=== PATIENT | female | born 1935 | race Caucasian/White ===

== ENCOUNTER 2023-10-31 12:00 | Observation (INO) | payer MEDICARE ==
--- NOTE | 2023-10-31 13:32 | ERPHSYRPT ---
- History of Present Illness Time Seen by Provider: 10/31/23 13:27 Source: patient Exam Limitations: no limitations Physician History: 88-year-old female with history of hypertension, hyperlipidemia, diabetes mellitus, metastatic cancer with multiple radiations, recently completed the fifth round of radiation, recurrent UTI on prophylactic medications, presented in the ER with complains of feeling dizzy lightheaded, weak all over since morning. Patient also took a ground-level fall hitting her head and hip almost a week ago. She is able to walk but complaining of pain in the left hip which is progressively getting worse since the fall. Denies any focal numbness tingling or weakness. No chest pain palpitations or shortness of breath. Daughter reports patient having similar symptoms with UTI and dehydration. No fever or chills reported. Not a good historian and history is limited. Allergies/Adverse Reactions: niacin Allergy (Intermediate, Verified 10/31/23 20:19) Rash Home Medications: Aspirin 81 gm Chew [Baby Aspirin 81 mg Chew] 81 mg PO DAILY 01/26/23 [History] Lisinopril 20 mg [Zestril 20 MG] 20 mg PO DAILY 01/26/23 [History] Metformin HCl 500 mg [Glucophage 500 MG] 500 mg PO BIDWM 01/26/23 [History] Escitalopram Oxalate [Lexapro] 10 mg PO DAILY 03/05/23 [History] Simvastatin 20Mg [Zocor 20Mg] 20 mg PO HS 09/22/23 [History] Cephalexin Mh 500 mg [Keflex 500 mg] 250 mg PO DAILY 10/31/23 [History] Hx Tetanus, Diphtheria Vaccination/Date Given: Yes Hx Influenza Vaccination/Date Given: Yes Hx Pneumococcal Vaccination/Date Given: Yes Travel Risk - Emerging Infectious Disease Are you exhibiting symptoms associated with any current EIDs: No - Review of Systems Constitutional: Fatigue, Weakness Eyes: No Symptoms Ears, Nose, & Throat: No Symptoms Respiratory: No Symptoms Cardiac: No Symptoms Abdominal/Gastrointestinal: No Symptoms Genitourinary Symptoms: No Symptoms Musculoskeletal: Arthralgias, Fall, Joint Pain Skin: No Symptoms Neurological: Dizziness Endocrine: No Symptoms Hematologic/Lymphatic: No Symptoms - Past Medical History Pertinent Past Medical History: Yes Neurological History: No Pertinent History ENT History: No Pertinent History Cardiac History: High Cholesterol, Hypertension, Other Respiratory History: Lung Cancer Endocrine Medical History: Diabetes Type II Musculoskeletal History: No Pertinent History GI Medical History: No Pertinent History History: No Pertinent History Psycho-Social History: Anxiety Female Reproductive Disorders: No Pertinent History Other Medical History: heart murmur- Dr Verma, 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 - Past Surgical History Past Surgical History: Yes Neuro Surgical History: No Pertinent History Cardiac: No Pertinent History Respiratory: No Pertinent History Gastrointestinal: No Pertinent History Genitourinary: No Pertinent History Musculoskeletal: No Pertinent History Female Surgical History: Hysterectomy - Social History Smoking Status: Never smoker Exposure to second hand smoke: No Drug Use: none Patient Lives Alone: No - Nursing Vital Signs Nursing Vital Signs: Initial Vital Signs Temperature 96.8 F 10/31/23 13:33 Pulse Rate 76 10/31/23 13:33 Respiratory Rate 20 10/31/23 13:33 Blood Pressure 202/109 10/31/23 13:33 O2 Sat by Pulse Oximetry 97 10/31/23 13:33 Pain Scale Pain Intensity 0 - Epi Coma Score Best Eye Response (Epi): (4) open spontaneously Best Verbal Response (Vernalis): (5) oriented Best Motor Response (Vernalis): (6) obeys commands Vernalis Total: 15 - Physical Exam General Appearance: no apparent distress, alert Head Injury: no evidence of injury Eye Exam: PERRL/EOMI, eyes nml inspection ENT Exam: airway nml, No evidence of ENT injury, No dental injury Neck Exam: supple, trachea midline, full range of motion, normal alignment Respiratory/Chest Exam: normal breath sounds, No chest tenderness, No respiratory distress Cardiovascular Exam: normal heart sounds, regular rate/rhythm Gastrointestinal Exam: soft, normal bowel sounds, No tenderness Back Exam: normal inspection Extremity Exam: normal inspection, normal range of motion Neurologic Exam: alert, oriented x 3, cooperative, systems lead II-XII nml as tested, normal mood/affect, nml cerebellar function, sensation nml, No motor deficits Skin Exam: normal color SpO2 Interpretation: normal SpO2: 96 O2 Delivery: Room Air - Course EKG Interpreted by Me: RATE (79), Sinus Rhythm, NORMAL AXIS, Right Bundle Branch Block, Non-specific ST Changes, Other (Anterolateral T wave inversions) Ordered Tests: Medication Summary Discontinued Medications Generic Name Dose Route Start Last Admin Trade Name Freq PRN Reason Stop Dose Admin Acetaminophen 650 mg 10/31/23 17:35 10/31/23 17:38 Acetaminophen 325 Mg Tablet PO 10/31/23 17:36 650 mg STAT STA Administration Acetaminophen Confirm 10/31/23 17:37 Acetaminophen 325 Mg Tablet Administered 10/31/23 17:38 Dose 650 mg .ROUTE .STK-MED ONE Acetaminophen 650 mg 10/31/23 21:14 11/02/23 10:11 Acetaminophen 325 Mg Tablet PO 11/30/23 21:13 650 mg Q6H PRN PRN Administration PAIN AND/OR FEVER Amiloride HCl 5 mg 11/01/23 10:00 11/03/23 10:16 Amiloride Hcl 5 Mg Tablet PO 12/01/23 09:59 5 mg DAILY MARIA G Administration Amlodipine Besylate 5 mg 11/02/23 10:00 Amlodipine Besylate 5 Mg Tablet PO 12/02/23 09:59 QAM MARIA G Amlodipine Besylate 5 mg 11/02/23 10:00 11/03/23 10:16 Amlodipine Besylate 5 Mg Tablet PO 12/02/23 09:59 5 mg QAM MARIA G Administration Aspirin 81 mg 11/01/23 10:00 11/03/23 10:14 Aspirin 81 Mg Tablet.Ec PO 12/01/23 09:59 81 mg DAILY MARIA G Administration Cephalexin HCl 250 mg 11/01/23 10:00 Cephalexin Mh 250 Mg Capsule PO 12/01/23 09:59 DAILY MARIA G Cephalexin HCl 250 mg 11/02/23 10:00 11/03/23 10:16 Cephalexin Mh 250 Mg Capsule PO 12/02/23 09:59 250 mg DAILY MARIA G Administration Clonidine 0.1 mg 11/03/23 11:29 11/03/23 12:00 Clonidine Hcl 0.1 Mg Tablet PO 11/03/23 11:30 0.1 mg STAT ONE Administration Diphenhydramine HCl 25 mg 11/01/23 22:10 11/01/23 22:12 Diphenhydramine Hcl 25 Mg Capsule PO 12/01/23 22:09 25 mg HS PRN PRN Administration INSOMNIA Enoxaparin Sodium 40 mg 11/01/23 10:00 11/03/23 10:16 Enoxaparin Sodium 40 Mg/0.4 Ml Syringe SQ 12/01/23 09:59 40 mg DAILY MARIA G Administration Escitalopram Oxalate 10 mg 10/31/23 22:00 11/02/23 21:39 Escitalopram Oxalate 10 Mg Tablet PO 11/30/23 21:59 10 mg HS MARIA G Administration Hydralazine HCl 10 mg 11/01/23 08:12 11/02/23 21:39 Hydralazine Hcl 20 Mg/Ml Vial IV 12/01/23 08:11 10 mg Q4H PRN PRN Administration HYPERTENSION Hydralazine HCl 5 mg 11/01/23 20:00 11/01/23 20:03 Hydralazine Hcl 20 Mg/Ml Vial IV 11/01/23 20:01 5 mg NOW ONE Administration Hydrochlorothiazide 50 mg 11/01/23 10:00 11/01/23 10:22 Hydrochlorothiazide 25 Mg Tablet PO 12/01/23 09:59 50 mg DAILY MARIA G Administration Sodium Chloride 1,000 mls @ 100 mls/hr 10/31/23 13:30 10/31/23 14:08 Sodium Chloride 0.9% 1000 Ml IV 11/30/23 13:29 100 mls/hr .Q10H MARIA G Administration Ceftriaxone Sodium 2 gm in 100 mls @ 200 mls/hr 10/31/23 18:07 10/31/23 19:21 Rocephin 2 Gm/100 Ml Nacl IV 10/31/23 18:36 Infused STAT ONE Infusion Ceftriaxone Sodium Confirm 10/31/23 18:11 Rocephin 2 Gm/100 Ml Nacl Administered 10/31/23 18:12 Dose 2 gm in 100 mls @ ud IV .STK-MED ONE Sodium Chloride Confirm 10/31/23 14:05 Sodium Chloride 0.9% 1000 Ml Administered 10/31/23 14:06 Dose 1,000 mls @ ud .ROUTE .STK-MED ONE Sodium Chloride 1,000 mls @ 75 mls/hr 10/31/23 21:15 11/02/23 20:47 Sodium Chloride 0.9% 1000 Ml IV 11/30/23 21:14 Not Given .[id number] MARIA G Potassium Chloride 100 mls @ 50 mls/hr 11/01/23 07:45 11/01/23 16:30 Potassium Chloride 20 Meq In Water 100ml IV 11/01/23 15:44 50 mls/hr Q2H MARIA G Administration Ceftriaxone Sodium 1 gm in 100 mls @ 200 mls/hr 11/01/23 22:00 Rocephin 1 Gm / 100 Ml Nacl IV 12/01/23 21:59 HS MARIA G Magnesium Sulfate/Water 2 gm in 50 mls @ 100 mls/hr 11/01/23 11:33 11/01/23 13:08 Magnesium Sulf 2 G/50 Ml Bag IV 11/01/23 12:02 100 mls/hr ONCE ONE Administration Magnesium Sulfate/Water 2 gm in 50 mls @ 100 mls/hr 11/02/23 07:34 11/02/23 08:03 Magnesium Sulf 2 G/50 Ml Bag IV 11/02/23 08:03 100 mls/hr ONCE ONE Administration Insulin Human Lispro 0 unit 10/31/23 21:14 Insulin Lispro 1 Unit SQ 11/30/23 21:13 UD PRN HYPERGLYCEMIA Labetalol HCl 10 mg 10/31/23 18:02 10/31/23 18:19 Labetalol Hcl 20 Mg/4 Ml Disp.Syringe IV 10/31/23 18:03 10 mg STAT ONE Administration Labetalol HCl Confirm 10/31/23 18:11 Labetalol Hcl 20 Mg/4 Ml Disp.Syringe Administered 10/31/23 18:12 Dose 20 mg IV .STK-MED ONE Lisinopril 20 mg 11/01/23 10:00 11/01/23 10:22 Lisinopril 20 Mg Tablet PO 12/01/23 09:59 20 mg DAILY MARIA G Administration Lisinopril 20 mg 11/02/23 20:00 Lisinopril 20 Mg Tablet PO 11/02/23 20:01 NOW ONE Lisinopril 40 mg 11/02/23 10:00 11/03/23 10:14 Lisinopril 20 Mg Tablet PO 12/02/23 09:59 40 mg DAILY MARIA G Administration Lisinopril 20 mg 11/01/23 20:00 11/01/23 20:03 Lisinopril 20 Mg Tablet PO 11/01/23 20:01 20 mg NOW ONE Administration Melatonin 3 mg 11/02/23 17:41 11/02/23 18:20 Melatonin 3 Mg Tablet PO 12/02/23 17:40 3 mg HS PRN PRN Administration INSOMNIA Metformin HCl 500 mg 11/01/23 08:00 11/03/23 08:15 Metformin Hcl 500 Mg Tablet PO 12/01/23 07:59 500 mg BIDWM MARIA G Administration Potassium Chloride 20 meq 11/02/23 07:45 11/02/23 13:23 Potassium Chloride Tab 10 Meq Tab PO 11/02/23 13:46 20 meq Q2H MARIA G Administration Simvastatin 20 mg 10/31/23 22:00 11/02/23 21:39 Simvastatin 20 Mg Tablet PO 11/30/23 21:59 20 mg HS MARIA G Administration Sodium Chloride 1,000 mg 11/02/23 14:43 11/02/23 14:49 Sodium Chloride 1,000 Mg Tablet PO 11/02/23 14:44 1,000 mg STAT ONE Administration Lab/Rad Data: Laboratory Result Diagrams 10/31/23 13:35 10/31/23 13:35 Laboratory Results 10/31/23 10/31/23 10/31/23 Range/Units 16:54 13:35 13:35 WBC (4.0-10.5) x10^3/uL RBC (4.1-5.4) x10^6/uL Hgb (12.0-16.0) g/dL Hct (35-47) % MCV (78-100) fL MCH (26-32) pg MCHC (32-36) g/dL RDW (11.5-14.0) % Plt Count (150-450) x10^3/uL MPV (7.5-11.0) fL Gran % (36.0-66.0) % Immature Gran % (Auto) (0.00-0.4) % Nucleat RBC Rel Count (0.00-0.1) % Eos # (Auto) (0-0.5) x10^3/uL Immature Gran # (Auto) (0.00-0.03) x10^3u/L Absolute Lymphs (auto) (1.0-4.6) x10^3/uL Absolute Monos (auto) (0.0-1.3) x10^3/uL Absolute Nucleated RBC (0.00-0.01) x10^3u/L Lymphocytes % (24.0-44.0) % Monocytes % (0.0-12.0) % Eosinophils % (0.00-5.0) % Basophils % (0.0-0.4) % Absolute Granulocytes (1.4-6.9) x10^3/uL Basophils # (0-0.4) x10^3/uL Sodium 133 L (135-145) mmol/L Potassium 3.5 (3.5-5.1) mmol/L Chloride 94 L (98-107) mmol/L Carbon Dioxide 32 H (22-30) mmol/L Anion Gap 10.3 (5-15) MEQ/L BUN 15 (7-17) mg/dL Creatinine 0.60 (0.52-1.04) mg/dL Estimated GFR 86.8 ML/MIN Glucose 112 H (74-106) mg/dL Lactic Acid (0.4-2.0) Calcium 9.4 (8.4-10.2) mg/dL Total Bilirubin 0.80 (0.2-1.3) mg/dL AST 33 (14-36) U/L ALT 13 (0-35) U/L Alkaline Phosphatase 96 (38-126) U/L Troponin I < 0.012 < 0.012 (0.000-0.033) ng/mL Serum Total Protein 7.7 (6.3-8.2) g/dL Albumin 4.3 (3.5-5.0) g/dL Lipase 48 (23-300) U/L Urine Color (Yellow) Urine Appearance (Clear) Urine pH (4.6-8.0) Ur Specific Jasper (1.005-1.030) Urine Protein (Negative) Urine Glucose (UA) (Negative) mg/dL Urine Ketones (Negative) Urine Blood (Negative) Urine Nitrite (Negative) Urine Bilirubin (Negative) Urine Urobilinogen (0.2) mg/dL Ur Leukocyte Esterase (Negative) U Hyaline Cast (Auto) (0-2) /LPF Urine Microscopic RBC (0-5) /HPF Urine Microscopic WBC (0-5) /HPF Ur Epithelial Cells (None Seen) /HPF Amorphous Crystals (None Seen) /HPF Urine Bacteria (None Seen) /HPF Urine Culture Reflexed (NO) 10/31/23 10/31/23 10/31/23 Range/Units 13:35 13:28 13:20 WBC 6.9 (4.0-10.5) x10^3/uL RBC 4.22 (4.1-5.4) x10^6/uL Hgb 13.0 (12.0-16.0) g/dL Hct 38.1 (35-47) % MCV 90.3 (78-100) fL MCH 30.8 (26-32) pg MCHC 34.1 (32-36) g/dL RDW 12.4 (11.5-14.0) % Plt Count 279 (150-450) x10^3/uL MPV 8.5 (7.5-11.0) fL Gran % 80.9 H (36.0-66.0) % Immature Gran % (Auto) 0.6 H (0.00-0.4) % Nucleat RBC Rel Count 0.0 (0.00-0.1) % Eos # (Auto) 0.02 (0-0.5) x10^3/uL Immature Gran # (Auto) 0.04 H (0.00-0.03) x10^3u/L Absolute Lymphs (auto) 0.65 L (1.0-4.6) x10^3/uL Absolute Monos (auto) 0.58 (0.0-1.3) x10^3/uL Absolute Nucleated RBC 0.00 (0.00-0.01) x10^3u/L Lymphocytes % 9.4 L (24.0-44.0) % Monocytes % 8.4 (0.0-12.0) % Eosinophils % 0.3 (0.00-5.0) % Basophils % 0.4 (0.0-0.4) % Absolute Granulocytes 5.60 (1.4-6.9) x10^3/uL Basophils # 0.03 (0-0.4) x10^3/uL Sodium (135-145) mmol/L Potassium (3.5-5.1) mmol/L Chloride (98-107) mmol/L Carbon Dioxide (22-30) mmol/L Anion Gap (5-15) MEQ/L BUN (7-17) mg/dL Creatinine (0.52-1.04) mg/dL Estimated GFR ML/MIN Glucose (74-106) mg/dL Lactic Acid 1.3 (0.4-2.0) Calcium (8.4-10.2) mg/dL Total Bilirubin (0.2-1.3) mg/dL AST (14-36) U/L ALT (0-35) U/L Alkaline Phosphatase (38-126) U/L Troponin I (0.000-0.033) ng/mL Serum Total Protein (6.3-8.2) g/dL Albumin (3.5-5.0) g/dL Lipase (23-300) U/L Urine Color Yellow (Yellow) Urine Appearance Cloudy A (Clear) Urine pH 8.0 (4.6-8.0) Ur Specific Jasper 1.015 (1.005-1.030) Urine Protein Trace A (Negative) Urine Glucose (UA) Negative (Negative) mg/dL Urine Ketones 15 A (Negative) Urine Blood Negative (Negative) Urine Nitrite Negative (Negative) Urine Bilirubin Negative (Negative) Urine Urobilinogen 1.0 A (0.2) mg/dL Ur Leukocyte Esterase Negative (Negative) U Hyaline Cast (Auto) NONE SEEN (0-2) /LPF Urine Microscopic RBC 0-2 (0-5) /HPF Urine Microscopic WBC 0-2 (0-5) /HPF Ur Epithelial Cells None Seen (None Seen) /HPF Amorphous Crystals Few A (None Seen) /HPF Urine Bacteria Moderate A (None Seen) /HPF Urine Culture Reflexed YES (NO) - Progress Progress: improved Progress Note: 10/31/23 18:47 Given fluids, CT head cervical spine and pelvis negative for any acute trauma related findings. Chest x-ray negative for any acute findings reviewed by me, official report is pending. Has normal white count, fairly unremarkable chemistries, does have some element of UTI and given dose of Rocephin. Patient blood pressure in the 200s, given labetalol. Patient is too weak to ambulate on her own. Discussed with Dr. Cuellar, reviewed history, workup and agreed with observation admission. Discussed with DrPadmini: Other (Dr. Cuellar) Will see patient in: hospital (observation) Counseled pt/family regarding: lab results, diagnosis, need for follow-up, rad results Medical Desision Making - Discussion of managment Care discussed with:: hospitalist Reviewed:: Test results Agreed on:: Treatment plan, place in obs Will see patient: in hospital - Diagnostic Testing Diagnostic test were ordered, analyzed, and reviewed by me: Yes Radiological Interpretation: Interpreted by me, Reviewed by me, Teleradiologist Report - Risk of complications The pt has a high risk of morbidity or mortality based on: Decision regarding hospitilization or escalation of hosp level of care - Departure Departure Disposition: Observation Clinical Impression: Uncontrolled hypertension, Dizziness, Generalized weakness Condition: Stable Critical Care Time: No
[2023-10-31 13:39] LABS: BASOPHIL % 0.4 % (0.0-0.4); Basophil (Absolute #) 0.03 x10^3/uL (0-0.4); Eosinophil % 0.3 % (0.00-5.0); Eosinophil (Absolute #) 0.02 x10^3/uL (0-0.5); Hematocrit 38.1 % (35-47); IMMATURE GRAN # 0.04 x10^3u/L (0.00-0.03); IMMATURE GRAN % 0.6 % (0.00-0.4); Lymphocyte (Absolute #) 0.65 x10^3/uL (1.0-4.6); Lymphocytes % 9.4 % (24.0-44.0); Mean Cell Volume 90.3 fL (78-100); Mean Corpuscular Hemoglobin 30.8 pg (26-32); Mean Corpuscular Hgb Concent. 34.1 g/dL (32-36); Mean Platelet Volume 8.5 fL (7.5-11.0); Monocyte (Absolute #) 0.58 x10^3/uL (0.0-1.3); Monocytes % 8.4 % (0.0-12.0); Neutrophil % 80.9 % (36.0-66.0); Platelet Count 279 x10^3/uL (150-450); Red Blood Count 4.22 x10^6/uL (4.1-5.4); Red Cell Distribution Width 12.4 % (11.5-14.0); White Blood Count 6.9 x10^3/uL (4.0-10.5)
[2023-10-31 13:49] LABS: Appearance Cloudy (Clear); Bacteria Moderate /HPF (None Seen); Bilirubin Negative (Negative); Blood Negative (Negative); Epithelial Cells None Seen /HPF (None Seen); Glucose, Urine Negative (Negative); Hyaline Casts NONE SEEN /LPF (0-2); Ketones 15 (Negative); Leukocyte Esterase Negative (Negative); Nitrite Negative (Negative); Protein,Urine Dip Trace (Negative); RBC 0-2 /HPF (0-5); Specific Gravity 1.015 (1.005-1.030); WBC 0-2 /HPF (0-5)
[2023-10-31 13:50] LABS: ADD URINE CULTURE? YES (NO); Amourphous Crystal Few /HPF (None Seen)
[2023-10-31 13:50] LABS: ALBUMIN 4.3 g/dL (3.5-5.0); ANION GAP 10.3 MEQ/L (5-15); BILIRUBIN,TOTAL 0.8 mg/dL (0.2-1.3); Calcium 9.4 mg/dL (8.4-10.2); Creatinine 1 0.6 mg/dL (0.52-1.04); EST GLOMERULAR FILTRATION RATE 86.8 ML/MIN; Potassium 3.5 mmol/L (3.5-5.1); Total Protein 7.7 g/dL (6.3-8.2)
[2023-10-31] MEDS ORDERED: Sodium Chloride 0.9% 1000 ML 1,000 ML ONE (14:05)
[2023-10-31] MEDS: Sodium Chloride 0.9% 1000 ML 1,000 ML IV SCH (14:08)
--- NOTE | 2023-10-31 16:16 | XRAY ---
CLINICAL HISTORY: fall/dizziness COMPARISON: None. TECHNIQUE: Axial non-contrast CT scan of the brain was performed from the skull base to the high parietal region with multiplanar reconstructions. One of the following dose reduction techniques were utilized for this exam: Automated exposure control, adjustment of the mA and/or kV according to patient size, use of iterative reconstruction. FINDINGS: There are hypdense areas noted in the periventricular and subcortical white matter bilaterally, suggestive of microvascular ischemic changes. 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 The ventricular system, cortical sulci and basal cisterns are prominent consistent with senile changes. The visualized brain parenchyma shows a normal appearance. Shin-white matter differentiation is maintained. No midline shifts or deformity. No intracerebral or extra axial hematoma. Normal size and configuration of the cerebral ventricles. Normal CT appearance of the posterior fossa structures namely the cerebellar hemispheres, brainstem and cerebellar peduncles. The osseous structures in the skull base are unremarkable. No definite calvarium fractures. The scanned paranasal sinuses are clear. Small edward bullosae in both middle turbinates. There is a soft tissue lesion seen in the anterior nasal cavity relatively large on right side. Needs clinical correlation IMPRESSION: 1. The above-mentioned findings are suggestive of mild microvascular ischemic changes and senile changes. 2. The rest of non-enhanced CT study for the brain is unremarkable. 3. Early changes of acute stroke may sometimes not be detected on a CT scan.If clinically needed, MRI with diffusion-weighted imaging is recommended for further evaluation. Electronically Signed by: Raine Busch MD. (10/31/2023 16:10:43 EDT)
--- NOTE | 2023-10-31 16:23 | XRAY ---
CLINICAL HISTORY: fall/dizziness COMPARISON: None. TECHNIQUE: Thin axial CT of the cervical spine was performed with sagittal and coronal reconstructions without contrast administration. One of the following dose reduction techniques was utilized for this exam: Automated exposure control, adjustment of the mA and/or kV according to patient size, and use of iterative reconstruction. FINDINGS: Alignment and osseous structures: Preserved physiological cervical lordosis The vertebral bodies are normal in height. No lytic or sclerotic bone lesion. The craniovertebral measures are unremarkable. Degenerative changes of the cervical spines with osteophyte formations more at C5, C6,and C7 vertebrae Narrowing of disc spaces, more at C5-C6 & C6-C7. Adequate spinal canal. Subtle anterolisthesis of C3 over C4 noted. Facetal arthritic changes at multiple levels Atlantodental osteoarthritic changes noted No acute fractures are seen. No paravertebral soft tissue mass or collection. IMPRESSION: No acute osseous findings. No fractures or soft tissue swelling. Cervical spondylotic changes at multiple levels showing marginal osteophytosis and reduced intervertebral disc spaces at multiple levels, most pronounced at C5-C6 and C6-C7 levels. MRI may be recommended for further evaluation. Electronically Signed by: Raine Busch MD. (10/31/2023 16:19:36 EDT)
--- NOTE | 2023-10-31 16:44 | XRAY ---
CLINICAL HISTORY: fall/dizziness COMPARISON: None. TECHNIQUE: CT axial continuous cuts were taken through the pelvis with multiplanar reconstructions without contrast administration. One of the following dose reduction techniques was utilized for this exam: Automated exposure control, adjustment of the mA and/or kV according to patient size, and use of iterative reconstruction. FINDINGS: No definite acute fractures or dislocation. Osteopenia of the examined bones. Mild degenerative changes of the hip joints. Lower lumbar spondylotic changes with lower disc osteophyte complexes. Multiple colonic diverticula is seen without inflammation findings around it. Fat-containing right groin hernia is noted. Advanced vascular calcifications. IMPRESSION: 1. No definite acute fractures or dislocation. 2. Fat-containing right groin hernia. 3. The rest of the findings as described. Electronically Signed by: Raine Busch MD. (10/31/2023 16:39:15 EDT)
[2023-10-31] MEDS ORDERED: TYLENOL 325 MG ONE (17:37)
[2023-10-31] MEDS: TYLENOL 325 MG PO STA (17:38)
[2023-10-31] MEDS ORDERED: ROCEPHIN 2 GM/100 ML NACL 2 GM/100 ML IVPB IV ONE (18:11)
[2023-10-31] MEDS ORDERED: TRANDATE 20 MG/4 ML SYRINGE IV ONE (18:11)
[2023-10-31] MEDS: TRANDATE 20 MG/4 ML SYRINGE IV ONE (18:19)
[2023-10-31] MEDS: ROCEPHIN 2 GM/100 ML NACL 2 GM/100 ML IVPB IV ONE (18:25)
--- NOTE | 2023-10-31 20:00 | XRAY ---
Indication: Weakness and dizziness. Comparison: None Portable chest underinflated with right base subsegmental atelectasis/scarring and cardiomegaly obscuring left lung base. Visualized upper lungs clear. Bony thorax intact with osteopenia and moderate degenerative changes.
[2023-10-31] MEDS ORDERED: HUMALOG SQ PRN (21:14)
[2023-10-31] MEDS: ZOCOR 20MG PO SCH (21:23)
[2023-10-31] MEDS: Lexapro PO SCH (21:23)
--- NOTE | 2023-10-31 21:27 | PCM.HP ---
History of Present Illness - Chief Complaint Chief Complaint: Generalized weakness, fall Date: 10/31/23 History of Present Illness: 88-year-old woman with a history of metastatic small cell lung cancer, hypertension, and diabetes, who presents with dizziness, malaise, and multiple falls. Of note, patient has been treated for metastatic SCLC since last summer, and just completed 5 days of intense radiation therapy to a new metastasis on her liver, finishing as of Wednesday. Her daughter is with her today, and both patient and daughter note that whenever patient gets radiation treatments, she has severe malaise, and has difficulty getting enough fluid intake. She has been trying to drink more fluids, but has for the past week been feeling overall poorly. She had a fall 1 week ago, and has been so sore that she has been unable to stand and walk. At baseline, she walks independently without assistive device. She has no focal pain, but has felt generally sore. There was also concern that patient could be having a UTI; she has had a series of UTIs that also gave her similar symptoms, and was recently started on daily low-dose Keflex for antibiotic suppression. She has a mild headache, similar to when she has been dehydrated. He denies fevers or sick contacts. Denies cough, chest pain, abdominal pain, or nausea, although has been having poor appetite. Still has some dizziness when she sits up. In the ER, patient had CT of the head, C-spine, and pelvis, that were all negative for fracture. She is given one dose of Rocephin and half a liter of normal saline. - Review of Systems Constitutional: Fatigue, Lethargy, Malaise, Night Sweats, Weakness, No Fever, No Chills Eyes: No Vision Changes, No Double Vision Ears, Nose, & Throat: No Nose Congestion, No Nose Discharge, No Throat Pain, No Throat Swelling Respiratory: No Cough, No Short Of Breath, No Wheezing Cardiac: No Chest Pain, No Edema Abdominal/Gastrointestinal: No Abdominal Pain, No Nausea, No Vomiting, No Diarrhea Genitourinary Symptoms: No Dysuria, No Frequency, No Hematuria Skin: No Symptoms Neurological: Dizziness, Gait Changes, Headache, Lethargy, No Focal Weakness, No Paralysis, No Parasthesia, No Sensory Changes, No Speech Changes, No Vertigo All Other Systems: Reviewed and Negative Medications & Allergies Home Medications: Home Medication List Amiloride/Hydrochlorothiazide [Amiloride HCl-Hctz 5-50 mg Tab] 1 each PO DAILY 01/26/23 [History Confirmed 10/31/23] Aspirin 81 gm Chew [Baby Aspirin 81 mg Chew] 81 mg PO DAILY 01/26/23 [History Confirmed 10/31/23] Lisinopril 20 mg [Zestril 20 MG] 20 mg PO DAILY 01/26/23 [History Confirmed 10/31/23] Metformin HCl 500 mg [Glucophage 500 MG] 500 mg PO BIDWM 01/26/23 [History Confirmed 10/31/23] Escitalopram Oxalate [Lexapro] 10 mg PO DAILY 03/05/23 [History Confirmed 10/31/23] Simvastatin 20Mg [Zocor 20Mg] 20 mg PO HS 09/22/23 [History Confirmed 10/31/23] Cephalexin Mh 500 mg [Keflex 500 mg] 250 mg PO DAILY 10/31/23 [History Confirmed 10/31/23] Allergies/Adverse Reactions: Allergies Allergy/AdvReac Type Severity Reaction Status Date / Time niacin Allergy Intermediate Rash Verified 10/31/23 20:19 - Past Medical History Past Medical History: Yes Neurological History: No Pertinent History ENT History: No Pertinent History Cardiac History: High Cholesterol, Hypertension, Other Respiratory History: Lung Cancer (Small cell lung cancer, first diagnosed in the neck, status post fractionated XRT summary 2022. New liver metastasis noted spring 2023, status post 5 days XRT.) Endocrine Medical History: Diabetes Type II (Only on metformin at home) Musculoskelatal History: No Pertinent History GI Medical History: No Pertinent History History: No Pertinent History Pyscho-Social History: Anxiety Reproductive Disorders: No Pertinent History Comment: heart murmur- Dr Verma, 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 - Female History Are you now?: No - Past Surgical History Past Surgical History: Yes Neuro Surgical History: No Pertinent History Cardiac History: No Pertinent History Respiratory Surgery: No Pertinent History GI Surgical History: No Pertinent History Genitourinary Surgical Hx: No Pertinent History Musculskeletal Surgical Hx: No Pertinent History Female Surgical History: Hysterectomy Significant Family History: no pertinent family hx - Social History Smoking Status: Never smoker Exposure to second hand smoke: No Alcohol: None Drug Use: none - Social Determinants of Health Will the patient participate in the screening: Yes Do you worry about a steady place to live?: No Do you have any problems with any of the following?: No known problems In the past 12 months,have you had to go without utilities?: No Have you or anyone in your house had to go without enough: No Transportation Issues: No Has anyone in your support network made you feel unsafe?: No Does the patient want assistance with any of the above?: No - Physical Exam Vital Signs: Vital Signs - 24 hr Temp Pulse Resp BP BP Pulse Ox 10/31/23 20:22 97.7 F 86 18 187/88 99 10/31/23 19:27 90 18 93/55 98 10/31/23 19:00 90 11 L 174/87 10/31/23 18:58 89 16 161/91 10/31/23 18:51 96 10/31/23 18:30 86 12 162/100 97 10/31/23 18:00 83 23 189/111 189/111 96 10/31/23 13:33 96.8 F 76 20 202/109 97 GEN: Lying in bed in no acute distress NEURO: No focal deficits CV: Regular rate & rhythm, no murmurs, no edema PULM: Decreased breath sounds at the right base, but otherwise clear to auscultation bilaterally, on room air, with no work of breathing. ABD: Soft, non-distended, normoactive bowel sounds PSYCH: Easily awoken, alert during conversation, oriented x 3 Results - Labs Lab/Micro Results: Lab Results-Last 24 Hours 10/31/23 10/31/23 10/31/23 Range/Units 13:20 13:28 13:35 WBC 6.9 (4.0-10.5) x10^3/uL RBC 4.22 (4.1-5.4) x10^6/uL Hgb 13.0 (12.0-16.0) g/dL Hct 38.1 (35-47) % MCV 90.3 (78-100) fL MCH 30.8 (26-32) pg MCHC 34.1 (32-36) g/dL RDW 12.4 (11.5-14.0) % Plt Count 279 (150-450) x10^3/uL MPV 8.5 (7.5-11.0) fL Gran % 80.9 H (36.0-66.0) % Immature Gran % (Auto) 0.6 H (0.00-0.4) % Nucleat RBC Rel Count 0.0 (0.00-0.1) % Eos # (Auto) 0.02 (0-0.5) x10^3/uL Immature Gran # (Auto) 0.04 H (0.00-0.03) x10^3u/L Absolute Lymphs (auto) 0.65 L (1.0-4.6) x10^3/uL Absolute Monos (auto) 0.58 (0.0-1.3) x10^3/uL Absolute Nucleated RBC 0.00 (0.00-0.01) x10^3u/L Lymphocytes % 9.4 L (24.0-44.0) % Monocytes % 8.4 (0.0-12.0) % Eosinophils % 0.3 (0.00-5.0) % Basophils % 0.4 (0.0-0.4) % Absolute Granulocytes 5.60 (1.4-6.9) x10^3/uL Basophils # 0.03 (0-0.4) x10^3/uL Sodium (135-145) mmol/L Potassium (3.5-5.1) mmol/L Chloride (98-107) mmol/L Carbon Dioxide (22-30) mmol/L Anion Gap (5-15) MEQ/L BUN (7-17) mg/dL Creatinine (0.52-1.04) mg/dL Estimated GFR ML/MIN Glucose (74-106) mg/dL Lactic Acid 1.3 (0.4-2.0) Calcium (8.4-10.2) mg/dL Total Bilirubin (0.2-1.3) mg/dL AST (14-36) U/L ALT (0-35) U/L Alkaline Phosphatase (38-126) U/L Troponin I (0.000-0.033) ng/mL Serum Total Protein (6.3-8.2) g/dL Albumin (3.5-5.0) g/dL Lipase (23-300) U/L Urine Color Yellow (Yellow) Urine Appearance Cloudy A (Clear) Urine pH 8.0 (4.6-8.0) Ur Specific [place] 1.015 (1.005-1.030) Urine Protein Trace A (Negative) Urine Glucose (UA) Negative (Negative) mg/dL Urine Ketones 15 A (Negative) Urine Blood Negative (Negative) Urine Nitrite Negative (Negative) Urine Bilirubin Negative (Negative) Urine Urobilinogen 1.0 A (0.2) mg/dL Ur Leukocyte Esterase Negative (Negative) U Hyaline Cast (Auto) NONE SEEN (0-2) /LPF Urine Microscopic RBC 0-2 (0-5) /HPF Urine Microscopic WBC 0-2 (0-5) /HPF Ur Epithelial Cells None Seen (None Seen) /HPF Amorphous Crystals Few A (None Seen) /HPF Urine Bacteria Moderate A (None Seen) /HPF Urine Culture Reflexed YES (NO) 10/31/23 10/31/23 10/31/23 Range/Units 13:35 13:35 16:54 WBC (4.0-10.5) x10^3/uL RBC (4.1-5.4) x10^6/uL Hgb (12.0-16.0) g/dL Hct (35-47) % MCV (78-100) fL MCH (26-32) pg MCHC (32-36) g/dL RDW (11.5-14.0) % Plt Count (150-450) x10^3/uL MPV (7.5-11.0) fL Gran % (36.0-66.0) % Immature Gran % (Auto) (0.00-0.4) % Nucleat RBC Rel Count (0.00-0.1) % Eos # (Auto) (0-0.5) x10^3/uL Immature Gran # (Auto) (0.00-0.03) x10^3u/L Absolute Lymphs (auto) (1.0-4.6) x10^3/uL Absolute Monos (auto) (0.0-1.3) x10^3/uL Absolute Nucleated RBC (0.00-0.01) x10^3u/L Lymphocytes % (24.0-44.0) % Monocytes % (0.0-12.0) % Eosinophils % (0.00-5.0) % Basophils % (0.0-0.4) % Absolute Granulocytes (1.4-6.9) x10^3/uL Basophils # (0-0.4) x10^3/uL Sodium 133 L (135-145) mmol/L Potassium 3.5 (3.5-5.1) mmol/L Chloride 94 L (98-107) mmol/L Carbon Dioxide 32 H (22-30) mmol/L Anion Gap 10.3 (5-15) MEQ/L BUN 15 (7-17) mg/dL Creatinine 0.60 (0.52-1.04) mg/dL Estimated GFR 86.8 ML/MIN Glucose 112 H (74-106) mg/dL Lactic Acid (0.4-2.0) Calcium 9.4 (8.4-10.2) mg/dL Total Bilirubin 0.80 (0.2-1.3) mg/dL AST 33 (14-36) U/L ALT 13 (0-35) U/L Alkaline Phosphatase 96 (38-126) U/L Troponin I < 0.012 < 0.012 (0.000-0.033) ng/mL Serum Total Protein 7.7 (6.3-8.2) g/dL Albumin 4.3 (3.5-5.0) g/dL Lipase 48 (23-300) U/L Urine Color (Yellow) Urine Appearance (Clear) Urine pH (4.6-8.0) Ur Specific [place] (1.005-1.030) Urine Protein (Negative) Urine Glucose (UA) (Negative) mg/dL Urine Ketones (Negative) Urine Blood (Negative) Urine Nitrite (Negative) Urine Bilirubin (Negative) Urine Urobilinogen (0.2) mg/dL Ur Leukocyte Esterase (Negative) U Hyaline Cast (Auto) (0-2) /LPF Urine Microscopic RBC (0-5) /HPF Urine Microscopic WBC (0-5) /HPF Ur Epithelial Cells (None Seen) /HPF Amorphous Crystals (None Seen) /HPF Urine Bacteria (None Seen) /HPF Urine Culture Reflexed (NO) - Radiology Impressions Radiology Exams & Impressions: Radiology Procedures Category Date Time Status CERVICAL SPINE WO CONTRAST [CT] Stat Exams 10/31/23 13:28 Completed CHEST 1 VIEW (PORTABLE) Stat Exams 10/31/23 13:28 Completed HEAD WITHOUT CONTRAST [CT] Stat Exams 10/31/23 13:28 Completed PELVIS WITHOUT CONTRAST [CT] Stat Exams 10/31/23 13:[address] head, C-spine, and pelvis all negative for acute fracture Chest x-ray elevated right hemidiaphragm, unchanged from prior chest x-rays from last summer. Small platelike atelectasis at the right base. (Images reviewed personally.) Assessment/Plan (1) Dehydration Current Visit: No Status: Acute Assessment & Plan: 88-year-old woman with a history of metastatic SCLC, hypertension, and diabetes, here with symptoms of dehydration after getting another round of radiation therapy. ## Dehydration, dizziness with recurrent symptoms of poor oral intake, lightheadedness, when she gets her radiation treatments. Symptoms began just as she was completing her last 5-day course. While there was some concern in the ER for acute cystitis, patient does not have any pyuria. Presence of bacteria alone in the urine does not indicate infection. However, her large inflammatory response to the radiation treatment would give her the same systemic inflammatory response that would lead to her malaise. Discontinue further antibiotics Start NS at 75 mL/h Reevaluate in the morning with PT/OT to assess for mobility ## Recurrent UTI patient was recently started on suppressive Keflex. Today, while she has some asymptomatic bacteriuria, she has no pyuria to suggest actual cystitis. Can continue her home suppressive Keflex 250 mg daily ## Type 2 diabetes well-controlled at home. Continue home metformin Low-dose sliding scale insulin ## Hypertension elevated on arrival, but patient was unable to take her blood pressure medications. Resume home lisinopril, amiloride, hydrochlorothiazide. CODE STATUS: Full code Diet: Diabetic Prophylaxis: Lovenox Code(s): E86.0 - DEHYDRATION Telemedicine Encounter - Telemedicine Encounter Telemedicine Encounter: The entirety of this encounter was performed via Telemedicine"
[2023-11-01] MEDS: TYLENOL 325 MG PO PRN (01:40)
[2023-11-01 05:02] LABS: Hematocrit 33.4 % (35-47); Hemoglobin 11.5 g/dL (12.0-16.0); Mean Cell Volume 88.6 fL (78-100); Mean Corpuscular Hemoglobin 30.5 pg (26-32); Mean Corpuscular Hgb Concent. 34.4 g/dL (32-36); Mean Platelet Volume 8.9 fL (7.5-11.0); Platelet Count 306 x10^3/uL (150-450); Red Blood Count 3.77 x10^6/uL (4.1-5.4); Red Cell Distribution Width 12.5 % (11.5-14.0); White Blood Count 8.1 x10^3/uL (4.0-10.5)
[2023-11-01 05:32] LABS: ANION GAP 9.3 MEQ/L (5-15); Calcium 8.8 mg/dL (8.4-10.2); Creatinine 1 0.5 mg/dL (0.52-1.04); EST GLOMERULAR FILTRATION RATE 90.7 ML/MIN; Potassium 3.1 mmol/L (3.5-5.1)
[2023-11-01] MEDS: Sodium Chloride 0.9% 1000 ML 1,000 ML IV SCH (05:38)
[2023-11-01] MEDS: POTASSIUM CHLORIDE 20 mEq IN WATER 100ML 100 ML IV SCH (08:16)
[2023-11-01] MEDS: Glucophage 500 MG PO SCH (08:16)
[2023-11-01] MEDS ORDERED: AMILORIDE PO SCH (10:00)
[2023-11-01] MEDS ORDERED: KEFLEX 500 MG PO SCH (10:00)
[2023-11-01] MEDS ORDERED: KEFLEX 250 MG PO SCH (10:00)
[2023-11-01] MEDS ORDERED: [UNRECOGNIZED DRUG - OTHER] PO SCH (10:00)
[2023-11-01] MEDS ORDERED: HYDROCHLOROTHIAZIDE PO SCH (10:00)
[2023-11-01] MEDS ORDERED: BABY ASPIRIN 81 MG CHEW PO SCH (10:00)
[2023-11-01] MEDS: AMILORIDE HCL PO SCH (10:22)
[2023-11-01] MEDS: Zestril 20 MG PO SCH (10:22)
[2023-11-01] MEDS: ENOXAPARIN SODIUM SQ SCH (10:22)
[2023-11-01] MEDS: ECOTRIN 81 MG PO SCH (10:22)
[2023-11-01] MEDS: hydroDIURIL 25 MG PO SCH (10:22)
--- NOTE | 2023-11-01 12:05 | XRAY ---
Indication: Confusion. Lung cancer with metastasis. Sagittal, coronal, and axial MRI brain performed without contrast. Patient terminated exam early. Only sagittal/axial T2 FLAIR, axial T2, and axial diffusion/ADC sequences obtained. Comparison: None Age-appropriate global atrophy with moderate periventricular degenerative micro-ischemia signal bilaterally. No acute intracanal hemorrhage, abnormal extra-axial fluid collection, or mass effect. Diffusion images negative for restricted signal. Fourth ventricle is midline without hydrocephalus. 7/8 cranial nerve complex bilaterally symmetric. Normal flow-void signal within the major intracerebral circulation. Normal appearing craniocervical junction and sella turcica. Visualized paranasal sinuses are clear. Fluid signal right mastoid air cells presumed inflammatory. Impression: 1. MRI exam is incomplete and therefore limited. 2. Atrophy and degenerative micro-ischemia within normal limits for patient's age. 3. No acute intracranial abnormalities or evidence for evolving large vessel territorial stroke. 4. Incidental fluid signal right mastoid air cells presumed inflammatory.
--- NOTE | 2023-11-01 12:28 | PCM.NOTE ---
Date and Time: 11/01/23 1212 Subjective Assessment: Ms. Tejada is an 88-year-old woman with a history of metastatic small cell lung cancer, hypertension, and diabetes. She presented on 10/31/23 with dizziness, malaise, and multiple falls. Of note, patient has been treated for metastatic SCLC since last summer, and just completed 5 days of intense radiation therapy to a new metastasis on her liver, finishing as of Wednesday. Her daughter is with her today, and both patient and daughter note that whenever patient gets radiation treatments, she has severe malaise, and has difficulty getting enough fluid intake. She has been trying to drink more fluids, but has for the past week been feeling overall poorly. She had a fall 1 week ago, and has been so sore that she has been unable to stand and walk. At baseline, she walks independently without assistive device. She has no focal pain, but has felt generally sore. There was also concern that patient could be having a UTI; she has had a series of UTIs that also gave her similar symptoms, and was recently started on daily low-dose Keflex for antibiotic suppression. She has a mild headache, similar to when she has been dehydrated. He denies fevers or sick contacts. Denies cough, chest pain, abdominal pain, or nausea, although has been having poor appetite. Still has some dizziness when she sits up. In the ER, patient had CT of the head, C-spine, and pelvis, that were all negative for fracture. She was started on Rocephin and IVF. Urine culture negative so home dose of keflex restarted. Pt is very confused today and unable to look at staff when being spoke to, she turns her head to the right when talking and cannot make eye contact. MRI of brain with contrast ordered for further evaluation she was unable to tolerate and MRI stopped before IV contrast could be given. MRi w/o contrast showed no concerning findings however she needs IV contrast for a proper evaluation She denies CP, SOB, Abd. pain, N/V/D. - Review of Systems Constitutional: No Fever, No Chills Eyes: No Symptoms Ears, Nose, & Throat: No Symptoms Respiratory: No Cough, No Short Of Breath Cardiac: No Chest Pain, No Edema, No Syncope Abdominal/Gastrointestinal: No Abdominal Pain, No Nausea, No Vomiting, No Diarrhea Genitourinary Symptoms: Frequency, No Dysuria Musculoskeletal: No Back Pain, No Neck Pain Skin: No Rash Neurological: No Dizziness, No Focal Weakness, No Sensory Changes Psychological: No Symptoms, Other (confusion) Endocrine: No Symptoms Hematologic/Lymphatic: No Symptoms Immunological/Allergic: No Symptoms Objective Exam General Appearance: no apparent distress, alert Neurologic Exam: alert, oriented x 3, cooperative, normal mood/affect, nml cerebellar function, sensation nml, confusion, motor weakness, No motor deficits Skin Exam: normal color, warm, dry Eye Exam: PERRL, EOMI, eyes nml inspection Ears, Nose, Throat Exam: normal ENT inspection, pharynx normal, moist mucous membranes Neck Exam: normal inspection, non-tender, supple, full range of motion Respiratory Exam: normal breath sounds, lungs clear, No respiratory distress Cardiovascular Exam: regular rate/rhythm, normal heart sounds Gastrointestinal/Abdomen Exam: soft, No tenderness, No mass Extremity Exam: normal inspection, normal range of motion Back Exam: normal inspection, normal range of motion, No CVA tenderness, No vertebral tenderness Pelvic Exam: deferred Rectal Exam: deferred Objective Data Vital Signs: Vital Signs - 24 hr Temp Pulse Resp BP BP Pulse Ox 11/01/23 08:00 97.8 F 65 17 184/85 95 11/01/23 03:59 97.5 F 75 18 185/86 99 10/31/23 23:17 97.7 F 79 18 172/73 97 10/31/23 20:22 97.7 F 86 18 187/88 99 10/31/23 19:27 90 18 93/55 98 10/31/23 19:00 90 11 L 174/87 10/31/23 18:58 89 16 161/91 10/31/23 18:51 96 10/31/23 18:30 86 12 162/100 97 10/31/23 18:00 83 23 189/111 189/111 96 10/31/23 13:33 96.8 F 76 20 202/109 97 Pain Assessment - Last Documented Pain Intensity 2 Pain Scale Used 0-10 Pain Scale Intake and Output: Intake & Output 10/30/23 10/31/23 11/01/23 11/02/23 11:59 11:59 11:59 11:59 Intake Total 1014 Output Total 400 Balance 614 Weight 63.1 kg Lab Results: Lab Results-Last 24 Hours 10/31/23 10/31/23 10/31/23 Range/Units 13:20 13:28 13:35 WBC 6.9 (4.0-10.5) x10^3/uL RBC 4.22 (4.1-5.4) x10^6/uL Hgb 13.0 (12.0-16.0) g/dL Hct 38.1 (35-47) % MCV 90.3 (78-100) fL MCH 30.8 (26-32) pg MCHC 34.1 (32-36) g/dL RDW 12.4 (11.5-14.0) % Plt Count 279 (150-450) x10^3/uL MPV 8.5 (7.5-11.0) fL Gran % 80.9 H (36.0-66.0) % Immature Gran % (Auto) 0.6 H (0.00-0.4) % Nucleat RBC Rel Count 0.0 (0.00-0.1) % Eos # (Auto) 0.02 (0-0.5) x10^3/uL Immature Gran # (Auto) 0.04 H (0.00-0.03) x10^3u/L Absolute Lymphs (auto) 0.65 L (1.0-4.6) x10^3/uL Absolute Monos (auto) 0.58 (0.0-1.3) x10^3/uL Absolute Nucleated RBC 0.00 (0.00-0.01) x10^3u/L Lymphocytes % 9.4 L (24.0-44.0) % Monocytes % 8.4 (0.0-12.0) % Eosinophils % 0.3 (0.00-5.0) % Basophils % 0.4 (0.0-0.4) % Absolute Granulocytes 5.60 (1.4-6.9) x10^3/uL Basophils # 0.03 (0-0.4) x10^3/uL Sodium (135-145) mmol/L Potassium (3.5-5.1) mmol/L Chloride (98-107) mmol/L Carbon Dioxide (22-30) mmol/L Anion Gap (5-15) MEQ/L BUN (7-17) mg/dL Creatinine (0.52-1.04) mg/dL Estimated GFR ML/MIN Glucose (74-106) mg/dL POC Glucometer (74 to 106) mg/dL Hemoglobin A1c (4.5-6.0) % Lactic Acid 1.3 (0.4-2.0) Calcium (8.4-10.2) mg/dL Magnesium (1.6-2.3) mg/dL Total Bilirubin (0.2-1.3) mg/dL AST (14-36) U/L ALT (0-35) U/L Alkaline Phosphatase (38-126) U/L Troponin I (0.000-0.033) ng/mL Serum Total Protein (6.3-8.2) g/dL Albumin (3.5-5.0) g/dL Lipase (23-300) U/L Urine Color Yellow (Yellow) Urine Appearance Cloudy A (Clear) Urine pH 8.0 (4.6-8.0) Ur Specific [place] 1.015 (1.005-1.030) Urine Protein Trace A (Negative) Urine Glucose (UA) Negative (Negative) mg/dL Urine Ketones 15 A (Negative) Urine Blood Negative (Negative) Urine Nitrite Negative (Negative) Urine Bilirubin Negative (Negative) Urine Urobilinogen 1.0 A (0.2) mg/dL Ur Leukocyte Esterase Negative (Negative) U Hyaline Cast (Auto) NONE SEEN (0-2) /LPF Urine Microscopic RBC 0-2 (0-5) /HPF Urine Microscopic WBC 0-2 (0-5) /HPF Ur Epithelial Cells None Seen (None Seen) /HPF Amorphous Crystals Few A (None Seen) /HPF Urine Bacteria Moderate A (None Seen) /HPF Urine Culture Reflexed YES (NO) 10/31/23 10/31/23 10/31/23 Range/Units 13:35 13:35 16:54 WBC (4.0-10.5) x10^3/uL RBC (4.1-5.4) x10^6/uL Hgb (12.0-16.0) g/dL Hct (35-47) % MCV (78-100) fL MCH (26-32) pg MCHC (32-36) g/dL RDW (11.5-14.0) % Plt Count (150-450) x10^3/uL MPV (7.5-11.0) fL Gran % (36.0-66.0) % Immature Gran % (Auto) (0.00-0.4) % Nucleat RBC Rel Count (0.00-0.1) % Eos # (Auto) (0-0.5) x10^3/uL Immature Gran # (Auto) (0.00-0.03) x10^3u/L Absolute Lymphs (auto) (1.0-4.6) x10^3/uL Absolute Monos (auto) (0.0-1.3) x10^3/uL Absolute Nucleated RBC (0.00-0.01) x10^3u/L Lymphocytes % (24.0-44.0) % Monocytes % (0.0-12.0) % Eosinophils % (0.00-5.0) % Basophils % (0.0-0.4) % Absolute Granulocytes (1.4-6.9) x10^3/uL Basophils # (0-0.4) x10^3/uL Sodium 133 L (135-145) mmol/L Potassium 3.5 (3.5-5.1) mmol/L Chloride 94 L (98-107) mmol/L Carbon Dioxide 32 H (22-30) mmol/L Anion Gap 10.3 (5-15) MEQ/L BUN 15 (7-17) mg/dL Creatinine 0.60 (0.52-1.04) mg/dL Estimated GFR 86.8 ML/MIN Glucose 112 H (74-106) mg/dL POC Glucometer (74 to 106) mg/dL Hemoglobin A1c (4.5-6.0) % Lactic Acid (0.4-2.0) Calcium 9.4 (8.4-10.2) mg/dL Magnesium (1.6-2.3) mg/dL Total Bilirubin 0.80 (0.2-1.3) mg/dL AST 33 (14-36) U/L ALT 13 (0-35) U/L Alkaline Phosphatase 96 (38-126) U/L Troponin I < 0.012 < 0.012 (0.000-0.033) ng/mL Serum Total Protein 7.7 (6.3-8.2) g/dL Albumin 4.3 (3.5-5.0) g/dL Lipase 48 (23-300) U/L Urine Color (Yellow) Urine Appearance (Clear) Urine pH (4.6-8.0) Ur Specific [place] (1.005-1.030) Urine Protein (Negative) Urine Glucose (UA) (Negative) mg/dL Urine Ketones (Negative) Urine Blood (Negative) Urine Nitrite (Negative) Urine Bilirubin (Negative) Urine Urobilinogen (0.2) mg/dL Ur Leukocyte Esterase (Negative) U Hyaline Cast (Auto) (0-2) /LPF Urine Microscopic RBC (0-5) /HPF Urine Microscopic WBC (0-5) /HPF Ur Epithelial Cells (None Seen) /HPF Amorphous Crystals (None Seen) /HPF Urine Bacteria (None Seen) /HPF Urine Culture Reflexed (NO) 10/31/23 10/31/23 11/01/23 Range/Units 21:20 22:07 04:48 WBC 8.1 (4.0-10.5) x10^3/uL RBC 3.77 L (4.1-5.4) x10^6/uL Hgb 11.5 L (12.0-16.0) g/dL Hct 33.4 L (35-47) % MCV 88.6 (78-100) fL MCH 30.5 (26-32) pg MCHC 34.4 (32-36) g/dL RDW 12.5 (11.5-14.0) % Plt Count 306 (150-450) x10^3/uL MPV 8.9 (7.5-11.0) fL Gran % (36.0-66.0) % Immature Gran % (Auto) (0.00-0.4) % Nucleat RBC Rel Count (0.00-0.1) % Eos # (Auto) (0-0.5) x10^3/uL Immature Gran # (Auto) (0.00-0.03) x10^3u/L Absolute Lymphs (auto) (1.0-4.6) x10^3/uL Absolute Monos (auto) (0.0-1.3) x10^3/uL Absolute Nucleated RBC (0.00-0.01) x10^3u/L Lymphocytes % (24.0-44.0) % Monocytes % (0.0-12.0) % Eosinophils % (0.00-5.0) % Basophils % (0.0-0.4) % Absolute Granulocytes (1.4-6.9) x10^3/uL Basophils # (0-0.4) x10^3/uL Sodium (135-145) mmol/L Potassium (3.5-5.1) mmol/L Chloride (98-107) mmol/L Carbon Dioxide (22-30) mmol/L Anion Gap (5-15) MEQ/L BUN (7-17) mg/dL Creatinine (0.52-1.04) mg/dL Estimated GFR ML/MIN Glucose (74-106) mg/dL POC Glucometer 118 H (74 to 106) mg/dL Hemoglobin A1c (4.5-6.0) % Lactic Acid (0.4-2.0) Calcium (8.4-10.2) mg/dL Magnesium (1.6-2.3) mg/dL Total Bilirubin (0.2-1.3) mg/dL AST (14-36) U/L ALT (0-35) U/L Alkaline Phosphatase (38-126) U/L Troponin I < 0.012 (0.000-0.033) ng/mL Serum Total Protein (6.3-8.2) g/dL Albumin (3.5-5.0) g/dL Lipase (23-300) U/L Urine Color (Yellow) Urine Appearance (Clear) Urine pH (4.6-8.0) Ur Specific [place] (1.005-1.030) Urine Protein (Negative) Urine Glucose (UA) (Negative) mg/dL Urine Ketones (Negative) Urine Blood (Negative) Urine Nitrite (Negative) Urine Bilirubin (Negative) Urine Urobilinogen (0.2) mg/dL Ur Leukocyte Esterase (Negative) U Hyaline Cast (Auto) (0-2) /LPF Urine Microscopic RBC (0-5) /HPF Urine Microscopic WBC (0-5) /HPF Ur Epithelial Cells (None Seen) /HPF Amorphous Crystals (None Seen) /HPF Urine Bacteria (None Seen) /HPF Urine Culture Reflexed (NO) 11/01/23 11/01/23 11/01/23 Range/Units 04:48 04:48 05:00 WBC (4.0-10.5) x10^3/uL RBC (4.1-5.4) x10^6/uL Hgb (12.0-16.0) g/dL Hct (35-47) % MCV (78-100) fL MCH (26-32) pg MCHC (32-36) g/dL RDW (11.5-14.0) % Plt Count (150-450) x10^3/uL MPV (7.5-11.0) fL Gran % (36.0-66.0) % Immature Gran % (Auto) (0.00-0.4) % Nucleat RBC Rel Count (0.00-0.1) % Eos # (Auto) (0-0.5) x10^3/uL Immature Gran # (Auto) (0.00-0.03) x10^3u/L Absolute Lymphs (auto) (1.0-4.6) x10^3/uL Absolute Monos (auto) (0.0-1.3) x10^3/uL Absolute Nucleated RBC (0.00-0.01) x10^3u/L Lymphocytes % (24.0-44.0) % Monocytes % (0.0-12.0) % Eosinophils % (0.00-5.0) % Basophils % (0.0-0.4) % Absolute Granulocytes (1.4-6.9) x10^3/uL Basophils # (0-0.4) x10^3/uL Sodium 131 L (135-145) mmol/L Potassium 3.1 L (3.5-5.1) mmol/L Chloride 96 L (98-107) mmol/L Carbon Dioxide 29 (22-30) mmol/L Anion Gap 9.3 (5-15) MEQ/L BUN 15 (7-17) mg/dL Creatinine 0.50 L (0.52-1.04) mg/dL Estimated GFR 90.7 ML/MIN Glucose 118 H (74-106) mg/dL POC Glucometer (74 to 106) mg/dL Hemoglobin A1c 5.90 (4.5-6.0) % Lactic Acid (0.4-2.0) Calcium 8.8 (8.4-10.2) mg/dL Magnesium 1.3 L (1.6-2.3) mg/dL Total Bilirubin (0.2-1.3) mg/dL AST (14-36) U/L ALT (0-35) U/L Alkaline Phosphatase (38-126) U/L Troponin I (0.000-0.033) ng/mL Serum Total Protein (6.3-8.2) g/dL Albumin (3.5-5.0) g/dL Lipase (23-300) U/L Urine Color (Yellow) Urine Appearance (Clear) Urine pH (4.6-8.0) Ur Specific [place] (1.005-1.030) Urine Protein (Negative) Urine Glucose (UA) (Negative) mg/dL Urine Ketones (Negative) Urine Blood (Negative) Urine Nitrite (Negative) Urine Bilirubin (Negative) Urine Urobilinogen (0.2) mg/dL Ur Leukocyte Esterase (Negative) U Hyaline Cast (Auto) (0-2) /LPF Urine Microscopic RBC (0-5) /HPF Urine Microscopic WBC (0-5) /HPF Ur Epithelial Cells (None Seen) /HPF Amorphous Crystals (None Seen) /HPF Urine Bacteria (None Seen) /HPF Urine Culture Reflexed (NO) 11/01/23 11/01/23 Range/Units 07:45 12:08 WBC (4.0-10.5) x10^3/uL RBC (4.1-5.4) x10^6/uL Hgb (12.0-16.0) g/dL Hct (35-47) % MCV (78-100) fL MCH (26-32) pg MCHC (32-36) g/dL RDW (11.5-14.0) % Plt Count (150-450) x10^3/uL MPV (7.5-11.0) fL Gran % (36.0-66.0) % Immature Gran % (Auto) (0.00-0.4) % Nucleat RBC Rel Count (0.00-0.1) % Eos # (Auto) (0-0.5) x10^3/uL Immature Gran # (Auto) (0.00-0.03) x10^3u/L Absolute Lymphs (auto) (1.0-4.6) x10^3/uL Absolute Monos (auto) (0.0-1.3) x10^3/uL Absolute Nucleated RBC (0.00-0.01) x10^3u/L Lymphocytes % (24.0-44.0) % Monocytes % (0.0-12.0) % Eosinophils % (0.00-5.0) % Basophils % (0.0-0.4) % Absolute Granulocytes (1.4-6.9) x10^3/uL Basophils # (0-0.4) x10^3/uL Sodium (135-145) mmol/L Potassium (3.5-5.1) mmol/L Chloride (98-107) mmol/L Carbon Dioxide (22-30) mmol/L Anion Gap (5-15) MEQ/L BUN (7-17) mg/dL Creatinine (0.52-1.04) mg/dL Estimated GFR ML/MIN Glucose (74-106) mg/dL POC Glucometer 130 H 193 H (74 to 106) mg/dL Hemoglobin A1c (4.5-6.0) % Lactic Acid (0.4-2.0) Calcium (8.4-10.2) mg/dL Magnesium (1.6-2.3) mg/dL Total Bilirubin (0.2-1.3) mg/dL AST (14-36) U/L ALT (0-35) U/L Alkaline Phosphatase (38-126) U/L Troponin I (0.000-0.033) ng/mL Serum Total Protein (6.3-8.2) g/dL Albumin (3.5-5.0) g/dL Lipase (23-300) U/L Urine Color (Yellow) Urine Appearance (Clear) Urine pH (4.6-8.0) Ur Specific [place] (1.005-1.030) Urine Protein (Negative) Urine Glucose (UA) (Negative) mg/dL Urine Ketones (Negative) Urine Blood (Negative) Urine Nitrite (Negative) Urine Bilirubin (Negative) Urine Urobilinogen (0.2) mg/dL Ur Leukocyte Esterase (Negative) U Hyaline Cast (Auto) (0-2) /LPF Urine Microscopic RBC (0-5) /HPF Urine Microscopic WBC (0-5) /HPF Ur Epithelial Cells (None Seen) /HPF Amorphous Crystals (None Seen) /HPF Urine Bacteria (None Seen) /HPF Urine Culture Reflexed (NO) Radiology Exams: Radiology Procedures Category Date Time Status CERVICAL SPINE WO CONTRAST [CT] Stat Exams 10/31/23 13:28 Completed CHEST 1 VIEW (PORTABLE) Stat Exams 10/31/23 13:28 Completed HEAD WITHOUT CONTRAST [CT] Stat Exams 10/31/23 13:28 Completed MRI BRAIN W/O CONTRAST [MRI] Routine Exams 11/01/23 08:30 Completed PELVIS WITHOUT CONTRAST [CT] Stat Exams 10/31/23 13:28 Completed Assessment/Plan (1) Uncontrolled hypertension Current Visit: No Status: Acute Assessment & Plan: Resume home lisinopril, amiloride, hydrochlorothiazide. - hydralizine PRN added Code(s): I10 - ESSENTIAL (PRIMARY) HYPERTENSION (2) Hypokalemia Current Visit: Yes Status: Acute Assessment & Plan: - K+3.1- replaced- trend Code(s): E87.6 - HYPOKALEMIA (3) Hypomagnesemia Current Visit: Yes Status: Acute Assessment & Plan: - Mg+ 1.3 replaced- trend Code(s): E83.42 - HYPOMAGNESEMIA (4) Acute UTI Current Visit: No Status: Acute Assessment & Plan: - UC negative - Rocephin stopped - Continue Keflex @ home dose Code(s): N39.0 - URINARY TRACT INFECTION, SITE NOT SPECIFIED (5) Confusion Current Visit: No Status: Acute Assessment & Plan: - CT head: IMPRESSION: 1. The above-mentioned findings are suggestive of mild microvascular ischemic changes and senile changes. 2. The rest of non-enhanced CT study for the brain is unremarkable. 3. Early changes of acute stroke may sometimes not be detected on a CT scan.If clinically needed, MRI with diffusion-weighted imaging is recommended for further evaluation. - MRI with contrast ordered- unable to complete, pt asked to stop exam before contrast gave. - MRI w/o contrast: Impression: 1. MRI exam is incomplete and therefore limited. 2. Atrophy and degenerative micro-ischemia within normal limits for patient's age. 3. No acute intracranial abnormalities or evidence for evolving large vessel territorial stroke. 4. Incidental fluid signal right mastoid air cells presumed inflammatory. Code(s): R41.0 - DISORIENTATION, UNSPECIFIED (6) Weakness Current Visit: No Status: Acute Assessment & Plan: - with falls - Pelvis CT IMPRESSION: 1. No definite acute fractures or dislocation. 2. Fat-containing right groin hernia. 3. The rest of the findings as described - Chest XR: Portable chest underinflated with right base subsegmental atelectasis/scarring and cardiomegaly obscuring left lung base. Visualized upper lungs clear. Bony thorax intact with osteopenia and moderate degenerative changes. - Cervical spine CT IMPRESSION: No acute osseous findings. No fractures or soft tissue swelling. Cervical spondylotic changes at multiple levels showing marginal osteophytosis and reduced intervertebral disc spaces at multiple levels, most pronounced at C5-C6 and C6-C7 levels. MRI may be recommended for further evaluation. - PT/OT - Daughter wants [facility]- Case management to discuss with family. - 2:2 radiation treatments Code(s): R53.1 - WEAKNESS (7) Type II diabetes mellitus, well controlled Current Visit: Yes Status: Chronic Assessment & Plan: - A1C 5.90 - metformin - Humalog s/s - accuchecks AC/HS Code(s): E11.9 - TYPE 2 DIABETES MELLITUS WITHOUT COMPLICATIONS (8) Hyponatremia Current Visit: Yes Status: Acute Assessment & Plan: - mild Na+ 131- trend Code(s): E87.1 - HYPO-OSMOLALITY AND HYPONATREMIA (9) Depression Current Visit: Yes Status: Chronic Qualifiers: Major depression recurrence: recurrent Assessment & Plan: - continue lexapro Code(s): F32.A - DEPRESSION, UNSPECIFIED (10) Hyperlipidemia Current Visit: Yes Status: Chronic Assessment & Plan: - Continue statin VTE: Lovenox Next of Kin: daughter D/c plan: 1-2 days Code status: Full Code(s): E78.5 - HYPERLIPIDEMIA, UNSPECIFIED
[2023-11-01] MEDS: MAGNESIUM SULF 2 G/50 ML BAG 2 GM/50 ML PIGGYBACK IV ONE (13:08)
[2023-11-01] MEDS: APRESOLINE 20 MG/ML INJ IV PRN (17:53)
[2023-11-01] MEDS: Zestril 20 MG PO ONE (20:03)
[2023-11-01] MEDS: APRESOLINE 20 MG/ML INJ IV ONE (20:03)
[2023-11-01] MEDS ORDERED: ROCEPHIN 1 GM / 100 ML NaCl 1 GM/100 ML IVPB IV SCH (22:00)
[2023-11-01] MEDS: BENADRYL 25 MG CAPSULE PO PRN (22:12)
[2023-11-02 04:36] LABS: Hematocrit 36.8 % (35-47); Hemoglobin 12.9 g/dL (12.0-16.0); Mean Cell Volume 88.2 fL (78-100); Mean Corpuscular Hemoglobin 30.9 pg (26-32); Mean Corpuscular Hgb Concent. 35.1 g/dL (32-36); Mean Platelet Volume 8.9 fL (7.5-11.0); Platelet Count 357 x10^3/uL (150-450); Red Blood Count 4.17 x10^6/uL (4.1-5.4); Red Cell Distribution Width 12.6 % (11.5-14.0); White Blood Count 10.9 x10^3/uL (4.0-10.5)
[2023-11-02 04:53] LABS: ALBUMIN 4.1 g/dL (3.5-5.0); ANION GAP 12.4 MEQ/L (5-15); BILIRUBIN,TOTAL 0.9 mg/dL (0.2-1.3); Creatinine 1 0.43 mg/dL (0.52-1.04); EST GLOMERULAR FILTRATION RATE 94.1 ML/MIN; Potassium 3.1 mmol/L (3.5-5.1); Total Protein 7.1 g/dL (6.3-8.2)
[2023-11-02] MEDS: MAGNESIUM SULF 2 G/50 ML BAG 2 GM/50 ML PIGGYBACK IV ONE (08:03)
[2023-11-02] MEDS: Klor Con PO SCH (08:03)
[2023-11-02] MEDS ORDERED: NORVASC 5 MG PO SCH (10:00)
[2023-11-02] MEDS: KEFLEX 250 MG PO SCH (10:11)
[2023-11-02] MEDS: Zestril 20 MG PO SCH (10:15)
[2023-11-02] MEDS: NORVASC 5 MG PO SCH (11:52)
--- NOTE | 2023-11-02 12:10 | PCM.DS ---
Discharge Summary Date of Admission: 10/31/23 20:03 Date of Discharge: 11/02/23 Admitting Physician: BENSON BANGURA MD Primary Care Provider: KENDRA LAMB Allergies Allergies niacin Allergy (Intermediate, Verified 10/31/23 20:19) Rash Hospital Summary - Hospital Course Hospital Course: 11/01/23 Ms. Tejada is an 88-year-old woman with a history of metastatic small cell lung cancer, hypertension, and diabetes. She presented on 10/31/23 with dizziness, malaise, and multiple falls. Of note, patient has been treated for metastatic SCLC since last summer, and just completed 5 days of intense radiation therapy to a new metastasis on her liver, finishing as of Wednesday. Her daughter is with her today, and both patient and daughter note that whenever patient gets radiation treatments, she has severe malaise, and has difficulty getting enough fluid intake. She has been trying to drink more fluids, but has for the past week been feeling overall poorly. She had a fall 1 week ago, and has been so sore that she has been unable to stand and walk. At baseline, she walks independently without assistive device. She has no focal pain, but has felt generally sore. There was also concern that patient could be having a UTI; she has had a series of UTIs that also gave her similar symptoms, and was recently started on daily low-dose Keflex for antibiotic suppression. She has a mild headache, similar to when she has been dehydrated. He denies fevers or sick contacts. Denies cough, chest pain, abdominal pain, or nausea, although has been having poor appetite. Still has some dizziness when she sits up. In the ER, patient had CT of the head, C-spine, and pelvis, that were all negative for fracture. She was started on Rocephin and IVF. Urine culture negative so home dose of keflex restarted. Pt is very confused today and unable to look at staff when being spoke to, she turns her head to the right when talking and cannot make eye contact. MRI of brain with contrast ordered for further evaluation she was unable to tolerate and MRI stopped before IV contrast could be given. MRi w/o contrast showed no concerning findings however she needs IV contrast for a proper evaluation She denies CP, SOB, Abd. pain, N/V/D. 11/02/23 Pt sitting up in chair. She reports she feels much better today however she was restless last night and did not sleep well. BP was elevated last night and a 2nd dose of lisinopril 20mg was given. 40mg of lisinopril continued this AM. She was also given Benadryl for itching and restlessness last night. It did help with the itching but not sleep. Nurse reports she got up every hour to urinate which is making her be at higher risk to fall. K+ and Mg+, and Na+ also low this AM and replaced. HCTZ stopped. Continued Amiloride but would consider stopping if hourly urination continues. Amlodipine added for continued HTN. family disucssed BP is low at home and concerns about her being on new med. Discussed in detail plan and that med should be held if needed. They do have a BP cuff and will record BP readings BID to take to f/u appointment with PCP. They are to also document any associated sxs if concerning. She was able to look at provider and family when talking today without any concerns. She was able to walk in the [place] w/o concern. If labs improve she may d/c this evening. She denies any further concerns at this time. - Vitals & Intake/Output Vital Signs: Vital Signs Temperature 97.7 F 11/02/23 07:48 Pulse Rate 92 H 11/02/23 07:48 Respiratory Rate 17 11/02/23 07:48 Blood Pressure 159/90 11/02/23 07:48 O2 Sat by Pulse Oximetry 94 L 11/02/23 07:48 Intake & Output: Intake & Output 10/31/23 11/01/23 11/02/23 11/03/23 11:59 11:59 11:59 11:59 Intake Total 1014 460 Output Total 400 2200 Balance 614 -1740 Weight 63.1 kg - Lab Result Diagrams: 11/02/23 04:16 11/02/23 04:16 Lab Results-Last 24 Hrs: Lab Results-Last 24 Hours 11/01/23 11/01/23 11/01/23 Range/Units 04:48 12:08 17:02 WBC (4.0-10.5) x10^3/uL RBC (4.1-5.4) x10^6/uL Hgb (12.0-16.0) g/dL Hct (35-47) % MCV (78-100) fL MCH (26-32) pg MCHC (32-36) g/dL RDW (11.5-14.0) % Plt Count (150-450) x10^3/uL MPV (7.5-11.0) fL Sodium (135-145) mmol/L Potassium (3.5-5.1) mmol/L Chloride (98-107) mmol/L Carbon Dioxide (22-30) mmol/L Anion Gap (5-15) MEQ/L BUN (7-17) mg/dL Creatinine (0.52-1.04) mg/dL Estimated GFR ML/MIN Glucose (74-106) mg/dL POC Glucometer 193 H 110 H (74 to 106) mg/dL Calcium (8.4-10.2) mg/dL Magnesium (1.6-2.3) mg/dL Total Bilirubin (0.2-1.3) mg/dL AST (14-36) U/L ALT (0-35) U/L Alkaline Phosphatase (38-126) U/L Serum Total Protein (6.3-8.2) g/dL Albumin (3.5-5.0) g/dL Procalcitonin 0.053 (0.030-0.080) ng/mL TSH 3rd Generation (0.470-4.680) mIU/L 11/01/23 11/02/23 11/02/23 Range/Units 23:20 04:16 04:16 WBC 10.9 H (4.0-10.5) x10^3/uL RBC 4.17 (4.1-5.4) x10^6/uL Hgb 12.9 (12.0-16.0) g/dL Hct 36.8 (35-47) % MCV 88.2 (78-100) fL MCH 30.9 (26-32) pg MCHC 35.1 (32-36) g/dL RDW 12.6 (11.5-14.0) % Plt Count 357 (150-450) x10^3/uL MPV 8.9 (7.5-11.0) fL Sodium (135-145) mmol/L Potassium (3.5-5.1) mmol/L Chloride (98-107) mmol/L Carbon Dioxide (22-30) mmol/L Anion Gap (5-15) MEQ/L BUN (7-17) mg/dL Creatinine (0.52-1.04) mg/dL Estimated GFR ML/MIN Glucose (74-106) mg/dL POC Glucometer 98 (74 to 106) mg/dL Calcium (8.4-10.2) mg/dL Magnesium 1.4 L (1.6-2.3) mg/dL Total Bilirubin (0.2-1.3) mg/dL AST (14-36) U/L ALT (0-35) U/L Alkaline Phosphatase (38-126) U/L Serum Total Protein (6.3-8.2) g/dL Albumin (3.5-5.0) g/dL Procalcitonin (0.030-0.080) ng/mL TSH 3rd Generation (0.470-4.680) mIU/L 11/02/23 11/02/23 11/02/23 Range/Units 04:16 04:16 08:10 WBC (4.0-10.5) x10^3/uL RBC (4.1-5.4) x10^6/uL Hgb (12.0-16.0) g/dL Hct (35-47) % MCV (78-100) fL MCH (26-32) pg MCHC (32-36) g/dL RDW (11.5-14.0) % Plt Count (150-450) x10^3/uL MPV (7.5-11.0) fL Sodium 129 L (135-145) mmol/L Potassium 3.1 L (3.5-5.1) mmol/L Chloride 96 L (98-107) mmol/L Carbon Dioxide 25 (22-30) mmol/L Anion Gap 12.4 (5-15) MEQ/L BUN 9 (7-17) mg/dL Creatinine 0.43 L (0.52-1.04) mg/dL Estimated GFR 94.1 ML/MIN Glucose 103 (74-106) mg/dL POC Glucometer 100 (74 to 106) mg/dL Calcium 9.0 (8.4-10.2) mg/dL Magnesium (1.6-2.3) mg/dL Total Bilirubin 0.90 (0.2-1.3) mg/dL AST 33 (14-36) U/L ALT 12 (0-35) U/L Alkaline Phosphatase 94 (38-126) U/L Serum Total Protein 7.1 (6.3-8.2) g/dL Albumin 4.1 (3.5-5.0) g/dL Procalcitonin (0.030-0.080) ng/mL TSH 3rd Generation 1.580 (0.470-4.680) mIU/L 11/02/23 Range/Units 11:50 WBC (4.0-10.5) x10^3/uL RBC (4.1-5.4) x10^6/uL Hgb (12.0-16.0) g/dL Hct (35-47) % MCV (78-100) fL MCH (26-32) pg MCHC (32-36) g/dL RDW (11.5-14.0) % Plt Count (150-450) x10^3/uL MPV (7.5-11.0) fL Sodium (135-145) mmol/L Potassium (3.5-5.1) mmol/L Chloride (98-107) mmol/L Carbon Dioxide (22-30) mmol/L Anion Gap (5-15) MEQ/L BUN (7-17) mg/dL Creatinine (0.52-1.04) mg/dL Estimated GFR ML/MIN Glucose (74-106) mg/dL POC Glucometer 106 (74 to 106) mg/dL Calcium (8.4-10.2) mg/dL Magnesium (1.6-2.3) mg/dL Total Bilirubin (0.2-1.3) mg/dL AST (14-36) U/L ALT (0-35) U/L Alkaline Phosphatase (38-126) U/L Serum Total Protein (6.3-8.2) g/dL Albumin (3.5-5.0) g/dL Procalcitonin (0.030-0.080) ng/mL TSH 3rd Generation (0.470-4.680) mIU/L Micro Results-Entire Visit: Microbiology 10/31/23 13:20 Urine Culture - Final Clean Catch Midstream <10K NORMAL SKIN INDY PROBABLE SKIN CONTAMINANT 10/31/23 13:50 Blood Culture - Preliminary Blood 10/31/23 13:43 Blood Culture - Preliminary Blood Accuchecks Date 11/01/23 Time 17:06 - Radiology Exams Ordered Rad Exams-Entire Visit: Radiology Procedures Category Date Time Status CERVICAL SPINE WO CONTRAST [CT] Stat Exams 10/31/23 13:28 Completed CHEST 1 VIEW (PORTABLE) Stat Exams 10/31/23 13:28 Completed HEAD WITHOUT CONTRAST [CT] Stat Exams 10/31/23 13:28 Completed MRI BRAIN W/O CONTRAST [MRI] Routine Exams 11/01/23 08:30 Completed PELVIS WITHOUT CONTRAST [CT] Stat Exams 10/31/23 13:28 Completed - Procedures and Test Procedures and Tests throughout Hospitalization: Therapy Orders & Screens 10/31/23 20:36 OT Screen per Nursing Assess ONCE Comment: Protocol Order Physician Instructions: Greater than 3 points order OT Admission Screening Reason For Exam: Triggered on Admission Diagnosis: Generalized weakness, UTI, uncontrolled hypertension, fall Open Wound/Cellutlitis/Pressure Ulcers: No Acute Fx/ORIF/Change in wt bearing status: No Severe MUSCULOSKELETAL pain: No ADL Dysfunction: Yes Acute CVA w/Hemiparesis/Hemiplegia: No Decreased Functional Mobility/Strength: Yes Sprain/Strain: No Acute Post-op Mobility Dysfunction: No Total Points: 4 PT Screen per Nursing Assess ONCE Comment: Protocol Order Physician Instructions: Greater than 3 points order PT Admission Screenin Reason For Exam: Triggered on Admission Diagnosis: Generalized weakness, UTI, uncontrolled hypertension, fall Open Wound/Cellutlitis/Pressure Ulcers: No Acute Fx/ORIF/Change in wt bearing status: No Severe MUSCULOSKELETAL pain: No ADL Dysfunction: Yes Acute CVA w/Hemiparesis/Hemiplegia: No Decreased Functional Mobility/Strength: Yes Sprain/Strain: No Acute Post-op Mobility Dysfunction: No Total Points: 4 ST Screen per Nursing Assess ONCE Comment: Protocol Order Physician Instructions: Greater than [address] Admission Screening Reason For Exam: Triggered on Admission Diagnosis: Generalized weakness, UTI, uncontrolled hypertension, fall CVA/Dyshpagia/Aphasia: No Cognitive Deficits: No Dehydration/Nutrition Deficit: Yes Reflux: No Oral-Motor Difficulties: No Pneumonia: No Correction Resident: No Total Points: 5 10/31/23 21:14 PT Eval & Treat (MD Order) ONCE Reason for Eval:: eval and treat, repeated falls/malaise Diagnosis: Generalized weakness, uncontrolled hypertension, fall OT Eval and Treat (MD Order) ONCE Comment: Physician Instructions: Reason For Exam: Diagnosis: Generalized weakness, fall Discharge Exam General Appearance: no apparent distress, alert Neurologic Exam: alert, oriented x 3, cooperative, normal mood/affect, nml cerebellar function, sensation nml, No motor deficits Eye Exam: PERRL, EOMI, eyes nml inspection Ears, Nose, Throat Exam: normal ENT inspection, pharynx normal, moist mucous membranes Neck Exam: normal inspection, non-tender, supple, full range of motion Respiratory Exam: normal breath sounds, lungs clear, No respiratory distress Cardiovascular Exam: regular rate/rhythm, normal heart sounds Gastrointestinal/Abdomen Exam: soft, No tenderness, No mass Pelvic Exam: deferred Rectal Exam: deferred Back Exam: normal inspection, normal range of motion, No CVA tenderness, No vertebral tenderness Extremity Exam: normal inspection, normal range of motion Skin Exam: normal color, warm, dry Final Diagnosis/Problem List - Final Discharge Diagnosis/Problem (1) Uncontrolled hypertension Current Visit: No Status: Acute Code(s): I10 - ESSENTIAL (PRIMARY) HYPERTENSION (2) Hypokalemia Current Visit: Yes Status: Acute Code(s): E87.6 - HYPOKALEMIA (3) Hypomagnesemia Current Visit: Yes Status: Acute Code(s): E83.42 - HYPOMAGNESEMIA (4) Acute UTI Current Visit: No Status: Acute Code(s): N39.0 - URINARY TRACT INFECTION, SITE NOT SPECIFIED (5) Confusion Current Visit: No Status: Acute Code(s): R41.0 - DISORIENTATION, UNSPECIFIED (6) Weakness Current Visit: No Status: Acute Code(s): R53.1 - WEAKNESS (7) Type II diabetes mellitus, well controlled Current Visit: Yes Status: Chronic Code(s): E11.9 - TYPE 2 DIABETES MELLITUS WITHOUT COMPLICATIONS (8) Hyponatremia Current Visit: Yes Status: Acute Code(s): E87.1 - HYPO-OSMOLALITY AND HYPONATREMIA (9) Depression Current Visit: Yes Status: Chronic Code(s): F32.A - DEPRESSION, UNSPECIFIED (10) Hyperlipidemia Current Visit: Yes Status: Chronic Assessment & Plan: (1) Uncontrolled hypertension Current Visit: No Status: Acute Assessment & Plan: Resume home lisinopril, amiloride, hydrochlorothiazide. - hydralizine PRN added 11/01 - lisinopril increased to 40mg QD - Amlodipine 5mg added - HCTZ stopped - Consider stopping Amiloride Code(s): I10 - ESSENTIAL (PRIMARY) HYPERTENSION (2) Hypokalemia Current Visit: Yes Status: Acute Assessment & Plan: - K+3.1- replaced- trend 11/01 - K+ 3.1 replaced- recheck this afternoon Code(s): E87.6 - HYPOKALEMIA (3) Hypomagnesemia Current Visit: Yes Status: Acute Assessment & Plan: - Mg+ 1.3 replaced- trend 11/01 - Mg+ 1.4 replaced- recheck this afternoon Code(s): E83.42 - HYPOMAGNESEMIA (4) Acute UTI Current Visit: No Status: Acute Assessment & Plan: - UC negative - Rocephin stopped - Continue Keflex @ home dose Code(s): N39.0 - URINARY TRACT INFECTION, SITE NOT SPECIFIED (5) Confusion Current Visit: No Status: Acute Assessment & Plan: - CT head: IMPRESSION: 1. The above-mentioned findings are suggestive of mild microvascular ischemic changes and senile changes. 2. The rest of non-enhanced CT study for the brain is unremarkable. 3. Early changes of acute stroke may sometimes not be detected on a CT scan.If clinically needed, MRI with diffusion-weighted imaging is recommended for further evaluation. - MRI with contrast ordered- unable to complete, pt asked to stop exam before contrast gave. - MRI w/o contrast: Impression: 1. MRI exam is incomplete and therefore limited. 2. Atrophy and degenerative micro-ischemia within normal limits for patient's age. 3. No acute intracranial abnormalities or evidence for evolving large vessel territorial stroke. 4. Incidental fluid signal right mastoid air cells presumed inflammatory. Code(s): R41.0 - DISORIENTATION, UNSPECIFIED (6) Weakness Current Visit: No Status: Acute Assessment & Plan: - with falls - Pelvis CT IMPRESSION: 1. No definite acute fractures or dislocation. 2. Fat-containing right groin hernia. 3. The rest of the findings as described - Chest XR: Portable chest underinflated with right base subsegmental atelectasis/scarring and cardiomegaly obscuring left lung base. Visualized upper lungs clear. Bony thorax intact with osteopenia and moderate degenerative changes. - Cervical spine CT IMPRESSION: No acute osseous findings. No fractures or soft tissue swelling. Cervical spondylotic changes at multiple levels showing marginal osteophytosis and reduced intervertebral disc spaces at multiple levels, most pronounced at C5-C6 and C6-C7 levels. MRI may be recommended for further evaluation. - PT/OT - Daughter wants [facility]- Case management to discuss with family. - 2:2 radiation treatments 11/01 - improved- walking well with PT today Code(s): R53.1 - WEAKNESS (7) Type II diabetes mellitus, well controlled Current Visit: Yes Status: Chronic Assessment & Plan: - A1C 5.90 - metformin - Humalog s/s - accuchecks AC/HS Code(s): E11.9 - TYPE 2 DIABETES MELLITUS WITHOUT COMPLICATIONS (8) Hyponatremia Current Visit: Yes Status: Acute Assessment & Plan: - mild Na+ 131- trend 11/01 - Na+ 129- will recheck this afternoon - HCTZ stopped Code(s): E87.1 - HYPO-OSMOLALITY AND HYPONATREMIA (9) Depression Current Visit: Yes Status: Chronic Qualifiers: Major depression recurrence: recurrent Assessment & Plan: - with anxiety - continue lexapro Code(s): F32.A - DEPRESSION, UNSPECIFIED (10) Hyperlipidemia Current Visit: Yes Status: Chronic Assessment & Plan: - Continue statin Code(s): E78.5 - HYPERLIPIDEMIA, UNSPECIFIED - Discharge Discharge Date: 11/02/23 Disposition: Home, Self-Care Condition: Stable Prescriptions: No Action Metformin HCl 500 mg [Glucophage 500 MG] 500 mg PO BIDWM Aspirin 81 gm Chew [Baby Aspirin 81 mg Chew] 81 mg PO DAILY Lisinopril 20 mg [Zestril 20 MG] 20 mg PO DAILY Amiloride/Hydrochlorothiazide [Amiloride HCl-Hctz 5-50 mg Tab] 1 each PO D AILY Escitalopram Oxalate [Lexapro] 10 mg PO DAILY Simvastatin 20Mg [Zocor 20Mg] 20 mg PO HS Cephalexin Mh 500 mg [Keflex 500 mg] 250 mg PO DAILY Follow up with: CLARISSE HYLTON [COURTESY STAFF] - KENDRA LAMB NP [Primary Care Provider] -
[2023-11-02 14:32] LABS: ANION GAP 12.7 MEQ/L (5-15); Calcium 8.9 mg/dL (8.4-10.2); Creatinine 1 0.68 mg/dL (0.52-1.04); EST GLOMERULAR FILTRATION RATE 84.2 ML/MIN; MAGNESIUM 1.9 mg/dL (1.6-2.3); Potassium 3.6 mmol/L (3.5-5.1)
[2023-11-02] MEDS: SODIUM CHLORIDE PO ONE (14:49)
--- NOTE | 2023-11-02 17:45 | PCM.NOTE ---
Date and Time: 11/02/231742 Subjective Assessment: 11/01/23 Ms. Tejada is an 88-year-old woman with a history of metastatic small cell lung cancer, hypertension, and diabetes. She presented on 10/31/23 with dizziness, malaise, and multiple falls. Of note, patient has been treated for metastatic SCLC since last summer, and just completed 5 days of intense radiation therapy to a new metastasis on her liver, finishing as of Wednesday. Her daughter is with her today, and both patient and daughter note that whenever patient gets radiation treatments, she has severe malaise, and has difficulty getting enough fluid intake. She has been trying to drink more fluids, but has for the past week been feeling overall poorly. She had a fall 1 week ago, and has been so sore that she has been unable to stand and walk. At baseline, she walks independently without assistive device. She has no focal pain, but has felt generally sore. There was also concern that patient could be having a UTI; she has had a series of UTIs that also gave her similar symptoms, and was recently started on daily low-dose Keflex for antibiotic suppression. She has a mild headache, similar to when she has been dehydrated. He denies fevers or sick contacts. Denies cough, chest pain, abdominal pain, or nausea, although has been having poor appetite. Still has some dizziness when she sits up. In the ER, patient had CT of the head, C-spine, and pelvis, that were all negative for fracture. She was started on Rocephin and IVF. Urine culture negative so home dose of keflex restarted. Pt is very confused today and unable to look at staff when being spoke to, she turns her head to the right when talking and cannot make eye contact. MRI of brain with contrast ordered for further evaluation she was unable to tolerate and MRI stopped before IV contrast could be given. MRi w/o contrast showed no concerning findings however she needs IV contrast for a proper evaluation She denies CP, SOB, Abd. pain, N/V/D. 11/02/23 Pt sitting up in chair. She reports she feels much better today however she was restless last night and did not sleep well. BP was elevated last night and a 2nd dose of lisinopril 20mg was given. 40mg of lisinopril continued this AM. She was also given Benadryl for itching and restlessness last night. It did help with the itching but not sleep. Nurse reports she got up every hour to urinate which is making her be at higher risk to fall. K+ and Mg+, and Na+ also low this AM and replaced. HCTZ stopped. Continued Amiloride but would consider stopping if hourly urination continues. Amlodipine added for continued HTN. family discussed BP is low at home and concerns about her being on new med. Discussed in detail plan and that med should be held if needed. They do have a BP cuff and will record BP readings BID to take to f/u appointment with PCP. They are to also document any associated sxs if concerning. She was able to look at provider and family when talking today without any concerns. She was able to walk in the [place]jar[place] w/o concern. Labs are improving but BP continues to be elevated this afternoon and she has increased confusion. She will need to stay again tonight. Will recheck UA. Melatonin added for sleep at night. Bendryl stopped as it was not helpful per family and staff. - Review of Systems Constitutional: No Fever, No Chills Eyes: No Symptoms Ears, Nose, & Throat: No Symptoms Respiratory: No Cough, No Short Of Breath Cardiac: No Chest Pain, No Edema, No Syncope Abdominal/Gastrointestinal: No Abdominal Pain, No Nausea, No Vomiting, No Diarrhea Genitourinary Symptoms: No Dysuria Musculoskeletal: No Back Pain, No Neck Pain Skin: No Rash Neurological: No Dizziness, No Focal Weakness, No Sensory Changes Psychological: No Symptoms Endocrine: No Symptoms Hematologic/Lymphatic: No Symptoms Immunological/Allergic: No Symptoms Objective Exam General Appearance: no apparent distress, alert Neurologic Exam: alert, oriented x 3, cooperative, normal mood/affect, nml cerebellar function, sensation nml, No motor deficits Skin Exam: normal color, warm, dry Eye Exam: PERRL, EOMI, eyes nml inspection Ears, Nose, Throat Exam: normal ENT inspection, pharynx normal, moist mucous membranes Neck Exam: normal inspection, non-tender, supple, full range of motion Respiratory Exam: normal breath sounds, lungs clear, No respiratory distress Cardiovascular Exam: regular rate/rhythm, normal heart sounds Gastrointestinal/Abdomen Exam: soft, No tenderness, No mass Extremity Exam: normal inspection, normal range of motion Back Exam: normal inspection, normal range of motion, No CVA tenderness, No vertebral tenderness Pelvic Exam: deferred Rectal Exam: deferred Objective Data Vital Signs: Vital Signs - 24 hr Temp Pulse Resp BP Pulse Ox 11/02/23 16:00 98.2 F 95 H 16 187/81 95 11/02/23 12:00 97.7 F 79 17 166/77 94 L 11/02/23 07:48 97.7 F 92 H 17 159/90 94 L 11/02/23 04:00 97.1 F 97 H 16 167/85 93 L 11/02/23 00:16 97.5 F 95 H 16 170/98 95 11/01/23 22:08 78 150/82 11/01/23 19:50 82 198/98 11/01/23 19:19 97.7 F 82 16 203/89 93 L Pain Assessment - Last Documented Pain Intensity 0 Pain Scale Used 0-10 Pain Scale Intake and Output: Intake & Output 10/31/23 11/01/23 11/02/23 11/03/23 11:59 11:59 11:59 11:59 Intake Total 1014 520 120 Output Total 400 2200 Balance 614 -1680 120 Weight 63.1 kg Lab Results: Lab Results-Last 24 Hours 11/01/23 11/02/23 11/02/23 Range/Units 23:20 04:16 04:16 WBC 10.9 H (4.0-10.5) x10^3/uL RBC 4.17 (4.1-5.4) x10^6/uL Hgb 12.9 (12.0-16.0) g/dL Hct 36.8 (35-47) % MCV 88.2 (78-100) fL MCH 30.9 (26-32) pg MCHC 35.1 (32-36) g/dL RDW 12.6 (11.5-14.0) % Plt Count 357 (150-450) x10^3/uL MPV 8.9 (7.5-11.0) fL Sodium (135-145) mmol/L Potassium (3.5-5.1) mmol/L Chloride (98-107) mmol/L Carbon Dioxide (22-30) mmol/L Anion Gap (5-15) MEQ/L BUN (7-17) mg/dL Creatinine (0.52-1.04) mg/dL Estimated GFR ML/MIN Glucose (74-106) mg/dL POC Glucometer 98 (74 to 106) mg/dL Calcium (8.4-10.2) mg/dL Magnesium 1.4 L (1.6-2.3) mg/dL Total Bilirubin (0.2-1.3) mg/dL AST (14-36) U/L ALT (0-35) U/L Alkaline Phosphatase (38-126) U/L Serum Total Protein (6.3-8.2) g/dL Albumin (3.5-5.0) g/dL TSH 3rd Generation (0.470-4.680) mIU/L 11/02/23 11/02/23 11/02/23 Range/Units 04:16 04:16 08:10 WBC (4.0-10.5) x10^3/uL RBC (4.1-5.4) x10^6/uL Hgb (12.0-16.0) g/dL Hct (35-47) % MCV (78-100) fL MCH (26-32) pg MCHC (32-36) g/dL RDW (11.5-14.0) % Plt Count (150-450) x10^3/uL MPV (7.5-11.0) fL Sodium 129 L (135-145) mmol/L Potassium 3.1 L (3.5-5.1) mmol/L Chloride 96 L (98-107) mmol/L Carbon Dioxide 25 (22-30) mmol/L Anion Gap 12.4 (5-15) MEQ/L BUN 9 (7-17) mg/dL Creatinine 0.43 L (0.52-1.04) mg/dL Estimated GFR 94.1 ML/MIN Glucose 103 (74-106) mg/dL POC Glucometer 100 (74 to 106) mg/dL Calcium 9.0 (8.4-10.2) mg/dL Magnesium (1.6-2.3) mg/dL Total Bilirubin 0.90 (0.2-1.3) mg/dL AST 33 (14-36) U/L ALT 12 (0-35) U/L Alkaline Phosphatase 94 (38-126) U/L Serum Total Protein 7.1 (6.3-8.2) g/dL Albumin 4.1 (3.5-5.0) g/dL TSH 3rd Generation 1.580 (0.470-4.680) mIU/L 11/02/23 11/02/23 11/02/23 Range/Units 11:50 14:16 17:02 WBC (4.0-10.5) x10^3/uL RBC (4.1-5.4) x10^6/uL Hgb (12.0-16.0) g/dL Hct (35-47) % MCV (78-100) fL MCH (26-32) pg MCHC (32-36) g/dL RDW (11.5-14.0) % Plt Count (150-450) x10^3/uL MPV (7.5-11.0) fL Sodium 128 L (135-145) mmol/L Potassium 3.6 (3.5-5.1) mmol/L Chloride 95 L (98-107) mmol/L Carbon Dioxide 23 (22-30) mmol/L Anion Gap 12.7 (5-15) MEQ/L BUN 14 (7-17) mg/dL Creatinine 0.68 (0.52-1.04) mg/dL Estimated GFR 84.2 ML/MIN Glucose 121 H (74-106) mg/dL POC Glucometer 106 114 H (74 to 106) mg/dL Calcium 8.9 (8.4-10.2) mg/dL Magnesium 1.9 (1.6-2.3) mg/dL Total Bilirubin (0.2-1.3) mg/dL AST (14-36) U/L ALT (0-35) U/L Alkaline Phosphatase (38-126) U/L Serum Total Protein (6.3-8.2) g/dL Albumin (3.5-5.0) g/dL TSH 3rd Generation (0.470-4.680) mIU/L Radiology Exams: Radiology Procedures Category Date Time Status MRI BRAIN W/O CONTRAST [MRI] Routine Exams 11/01/23 08:30 Completed Multi-Disciplinary Progress Notes: Multi-Disciplinary Progress Notes 11/02/23 11:36 Case Management Note by Rosa Madera PATIENT ALERT AND ORIENTED- MAKING EYE CONTACT WITH CONVERSATION. D/W HER AND DAUGHTERS AT BEDSIDE. THEY CONTINUE TO DENY ANY NEW NEEDS AT TIME OF DC. THEY PLAN FOR PATIENT TO DC HOME WITH 24 HR CARE FROM AND DAUGHTERS. THEY DECLINE HHC AT THIS TIME, REPORTING THEY HAVE HAD IT IN THE PAST AND DO NOT WISH TO HAVE IT AGAIN AT THIS TIME Initialized on 11/02/23 11:36 - END OF NOTE 11/02/23 11:06 Physical Therapy Note by Mark(Kyle#[id number])Claudia SUBJECTIVE: PATIENT REPORTS FEELING BETTER. STATES SHE IS ABLE TO LOOK TO THE LEFT NOW. "I WAS NOT GOOD YESTERDAY". REPORTS MILD DISCOMFORT MID BACK WITH POSITION CHANGE THIS MORNING BUT NO PAIN CURRENTLY. OBJECTIVE: MOBILITY: PATIENT ABLE TO MOVE SUPINE TO SIT TO SUPINE INDEP WITHOUT USE OF BEDRAILS. SIT TO STAND FROM EDGE OF BED WITH UE ASSIST. WITH ASSISTIVE DEVICE REQUIRED CUES FOR PROPER HAND PLACEMENT. AMBULATED 120' WITH ROLLING WALKER. THERAPIST CUES ONLY FOR POSTURE AND SAFETY ON TURNS. NO LOSS OF BALANCE WITH USE OF DEVICE. CUES TO COMPLETE TURN WITH DEVICE WHEN RETURNING TO BED. BALANCE: PATIENT ABLE TO STAND STATICALLY AT EDGE OF BED WITH SBA ONLY. PATIENT PERFORMED BALANCE ACTIVITIES IN STANDING INCLUDING HEAD TURNS, LOOKING UP/DOWN, AND PIVOTS. WITH PIVOTS REQUIRED MIN ASSIST TO MAINTAIN BALANCE. WITH HORIZONTAL HEAD MOVEMENTS NO LOSS OF BALANCE. WITH VERTICAL HEAD MOTIONS LOSS OF BALANCE REQUIRING CGA TO REGAIN WITH LOOKING UP. ABLE TO DO PARTIAL HEAD TILT BACK WITHOUT LOSS OF BALANCE. UNABLE TO ASSUME STAGGERED STANCE WITHOUT MIN ASSIST OR USE OF DEVICE. EXERCISES: SITTING ON EDGE OF BED PERFORMED ALTERNATING HIP FLEXION, ALTERNATING KNEE EXTENSION WITHOUT ASYMMETRY OR CUES. PERFORMED FORWARD BEND AND TRUNK EXTENSION INDEP. PATIENT ABLE TO COMPLETE TRUNK MOVEMENT WITHOUT C/O OF PAIN. ASSESSMENT: MUCH IMPROVED TODAY IN COMPARISON TO YESTERDAY. NO LEFT SIDE NEGLECT NOTED AND INDEP IN BED MOBILITY WITHOUT BED RAIL ASSIST. NO SHORTNESS OF BREATH WITH AMBULATION BUT PATIENT REPORTS FATIGUE STATING DID NOT SLEEP WELL. PLAN: CONTINUE PLAN OF CARE WRITTEN PROGRESSING ACTIVITIES AND EXERCISES TOLERATED. Initialized on 11/02/23 11:06 - END OF NOTE Assessment/Plan (1) Uncontrolled hypertension Current Visit: No Status: Acute Code(s): I10 - ESSENTIAL (PRIMARY) HYPERTENSION (2) Hypokalemia Current Visit: Yes Status: Acute Code(s): E87.6 - HYPOKALEMIA (3) Hypomagnesemia Current Visit: Yes Status: Acute Code(s): E83.42 - HYPOMAGNESEMIA (4) Acute UTI Current Visit: No Status: Acute Code(s): N39.0 - URINARY TRACT INFECTION, SITE NOT SPECIFIED (5) Confusion Current Visit: No Status: Acute Code(s): R41.0 - DISORIENTATION, UNSPECIFIED (6) Weakness Current Visit: No Status: Acute Code(s): R53.1 - WEAKNESS (7) Type II diabetes mellitus, well controlled Current Visit: Yes Status: Chronic Code(s): E11.9 - TYPE 2 DIABETES MELLITUS WITHOUT COMPLICATIONS (8) Hyponatremia Current Visit: Yes Status: Acute Code(s): E87.1 - HYPO-OSMOLALITY AND HYPONATREMIA (9) Depression Current Visit: Yes Status: Chronic Qualifiers: Major depression recurrence: recurrent Code(s): F32.A - DEPRESSION, UNSPECIFIED (10) Hyperlipidemia Current Visit: Yes Status: Chronic Assessment & Plan: (1) Uncontrolled hypertension Current Visit: No Status: Acute Assessment & Plan: Resume home lisinopril, amiloride, hydrochlorothiazide. - hydralizine PRN added 11/01 - lisinopril increased to 40mg QD - Amlodipine 5mg added - HCTZ stopped - Consider stopping Amiloride Code(s): I10 - ESSENTIAL (PRIMARY) HYPERTENSION (2) Hypokalemia Current Visit: Yes Status: Acute Assessment & Plan: - K+3.1- replaced- trend 11/01 - K+ 3.1 replaced- recheck this afternoon - rechecked and 3.6 resolved Code(s): E87.6 - HYPOKALEMIA (3) Hypomagnesemia Current Visit: Yes Status: Acute Assessment & Plan: - Mg+ 1.3 replaced- trend 11/01 - Mg+ 1.4 replaced- recheck this afternoon - rechecked 1.9 and resolved Code(s): E83.42 - HYPOMAGNESEMIA (4) Acute UTI Current Visit: No Status: Acute Assessment & Plan: - UC negative - Rocephin stopped - Continue Keflex @ home dose 11/01 - recheck UA- increased confusion and elevated WBC this AM on morning labs Code(s): N39.0 - URINARY TRACT INFECTION, SITE NOT SPECIFIED (5) Confusion Current Visit: No Status: Acute Assessment & Plan: - CT head: IMPRESSION: 1. The above-mentioned findings are suggestive of mild microvascular ischemic changes and senile changes. 2. The rest of non-enhanced CT study for the brain is unremarkable. 3. Early changes of acute stroke may sometimes not be detected on a CT scan.If clinically needed, MRI with diffusion-weighted imaging is recommended for further evaluation. - MRI with contrast ordered- unable to complete, pt asked to stop exam before contrast gave. - MRI w/o contrast: Impression: 1. MRI exam is incomplete and therefore limited. 2. Atrophy and degenerative micro-ischemia within normal limits for patient's age. 3. No acute intracranial abnormalities or evidence for evolving large vessel territorial stroke. 4. Incidental fluid signal right mastoid air cells presumed inflammatory. 11/01 - improved this am and then increased confusion this afternoon - recheck UA Code(s): R41.0 - DISORIENTATION, UNSPECIFIED (6) Weakness Current Visit: No Status: Acute Assessment & Plan: - with falls - Pelvis CT IMPRESSION: 1. No definite acute fractures or dislocation. 2. Fat-containing right groin hernia. 3. The rest of the findings as described - Chest XR: Portable chest underinflated with right base subsegmental atelectasis/scarring and cardiomegaly obscuring left lung base. Visualized upper lungs clear. Bony thorax intact with osteopenia and moderate degenerative changes. - Cervical spine CT IMPRESSION: No acute osseous findings. No fractures or soft tissue swelling. Cervical spondylotic changes at multiple levels showing marginal osteophytosis and reduced intervertebral disc spaces at multiple levels, most pronounced at C5-C6 and C6-C7 levels. MRI may be recommended for further evaluation. - PT/OT - Daughter wants [facility]- Case management to discuss with family. - 2:2 radiation treatments 11/01 - improved- walking well with PT today Code(s): R53.1 - WEAKNESS (7) Type II diabetes mellitus, well controlled Current Visit: Yes Status: Chronic Assessment & Plan: - A1C 5.90 - metformin - Humalog s/s - accuchecks AC/HS Code(s): E11.9 - TYPE 2 DIABETES MELLITUS WITHOUT COMPLICATIONS (8) Hyponatremia Current Visit: Yes Status: Acute Assessment & Plan: - mild Na+ 131- trend 11/01 - Na+ 129- will recheck this afternoon - HCTZ stopped Code(s): E87.1 - HYPO-OSMOLALITY AND HYPONATREMIA (9) Depression Current Visit: Yes Status: Chronic Qualifiers: Major depression recurrence: recurrent Assessment & Plan: - with anxiety - continue lexapro Code(s): F32.A - DEPRESSION, UNSPECIFIED (10) Hyperlipidemia Current Visit: Yes Status: Chronic Assessment & Plan: - Continue statin VTE: Lovenox Next of Kin: daughter D/c plan: 1-2 days Code status: Full Code(s): E78.5 - HYPERLIPIDEMIA, UNSPECIFIED
[2023-11-02] MEDS: MELATONIN PO PRN (18:20)
[2023-11-02 18:46] LABS: Appearance Clear (Clear); Bacteria None Seen /HPF (None Seen); Bilirubin Negative (Negative); Blood Negative (Negative); Epithelial Cells None Seen /HPF (None Seen); Glucose, Urine Negative (Negative); Ketones 40 (Negative); Leukocyte Esterase Negative (Negative); Nitrite Negative (Negative); Ph 7.5 (4.6-8.0); Protein,Urine Dip Negative (Negative); Specific Gravity 1.015 (1.005-1.030); WBC 0-2 /HPF (0-5)
[2023-11-02 18:52] LABS: ADD URINE CULTURE? NO (NO)
[2023-11-02] MEDS ORDERED: Zestril 20 MG PO ONE (20:00)
[2023-11-03 05:03] LABS: Hematocrit 37.1 % (35-47); Mean Cell Volume 87.7 fL (78-100); Mean Corpuscular Hemoglobin 30.7 pg (26-32); Mean Platelet Volume 8.7 fL (7.5-11.0); Platelet Count 375 x10^3/uL (150-450); Red Blood Count 4.23 x10^6/uL (4.1-5.4); Red Cell Distribution Width 12.7 % (11.5-14.0); White Blood Count 9.4 x10^3/uL (4.0-10.5)
[2023-11-03 05:20] LABS: ALBUMIN 4.3 g/dL (3.5-5.0); ANION GAP 14.3 MEQ/L (5-15); BILIRUBIN,TOTAL 0.9 mg/dL (0.2-1.3); Calcium 9.3 mg/dL (8.4-10.2); Creatinine 1 0.57 mg/dL (0.52-1.04); EST GLOMERULAR FILTRATION RATE 87.9 ML/MIN; Total Protein 7.6 g/dL (6.3-8.2)
--- NOTE | 2023-11-03 09:30 | PCM.DS ---
Discharge Summary Date of Admission: 10/31/23 20:03 Date of Discharge: 11/03/23 Admitting Physician: BENSON BANGURA MD Primary Care Provider: KENDRA LAMB Allergies Allergies niacin Allergy (Intermediate, Verified 10/31/23 20:19) Rash Hospital Summary - Hospital Course Hospital Course: 11/01/23 Ms. Tejada is an 88-year-old woman with a history of metastatic small cell lung cancer, hypertension, and diabetes. She presented on 10/31/23 with dizziness, malaise, and multiple falls. Of note, patient has been treated for metastatic SCLC since last summer, and just completed 5 days of intense radiation therapy to a new metastasis on her liver, finishing as of Wednesday. Her daughter is with her today, and both patient and daughter note that whenever patient gets radiation treatments, she has severe malaise, and has difficulty getting enough fluid intake. She has been trying to drink more fluids, but has for the past week been feeling overall poorly. She had a fall 1 week ago, and has been so sore that she has been unable to stand and walk. At baseline, she walks independently without assistive device. She has no focal pain, but has felt generally sore. There was also concern that patient could be having a UTI; she has had a series of UTIs that also gave her similar symptoms, and was recently started on daily low-dose Keflex for antibiotic suppression. She has a mild headache, similar to when she has been dehydrated. He denies fevers or sick contacts. Denies cough, chest pain, abdominal pain, or nausea, although has been having poor appetite. Still has some dizziness when she sits up. In the ER, patient had CT of the head, C-spine, and pelvis, that were all negative for fracture. She was started on Rocephin and IVF. Urine culture negative so home dose of keflex restarted. Pt is very confused today and unable to look at staff when being spoke to, she turns her head to the right when talking and cannot make eye contact. MRI of brain with contrast ordered for further evaluation she was unable to tolerate and MRI stopped before IV contrast could be given. MRi w/o contrast showed no concerning findings however she needs IV contrast for a proper evaluation She denies CP, SOB, Abd. pain, N/V/D. 11/02/23 Pt sitting up in chair. She reports she feels much better today however she was restless last night and did not sleep well. BP was elevated last night and a 2nd dose of lisinopril 20mg was given. 40mg of lisinopril continued this AM. She was also given Benadryl for itching and restlessness last night. It did help with the itching but not sleep. Nurse reports she got up every hour to urinate which is making her be at higher risk to fall. K+ and Mg+, and Na+ also low this AM and replaced. HCTZ stopped. Continued Amiloride but would consider stopping if hourly urination continues. Amlodipine added for continued HTN. family discussed BP is low at home and concerns about her being on new med. Discussed in detail plan and that med should be held if needed. They do have a BP cuff and will record BP readings BID to take to f/u appointment with PCP. They are to also document any associated sxs if concerning. She was able to look at provider and family when talking today without any concerns. She was able to walk in the [place] w/o concern. Labs are improving but BP continues to be elevated this afternoon and she has increased confusion. She will need to stay again tonight. Will recheck UA. Melatonin added for sleep at night. Bendryl stopped as it was not helpful per family and staff. 11/03/23 Pt sitting up in chair this morning eating breakfast. She did not get up every hour to urinate last night. She rested in bed but did not sleep well and was fidgety. Overnight provider suggested pt again try to have MRI with contrast with sedation. Pt and family does not want to do this and would like to f/u OP with oncology. Nursing stated pt became confused yesterday evening and last night. This morning pt is alert and oriented. She may be developing hospital related delirium. Family explained she does sleep well at home in her own bed. Will recheck BP at noon if doing well can d/c today. She denies any further conc erns at this time. Family refusing C or any home services. Will d/c with PRN clonidine. - Vitals & Intake/Output Vital Signs: Vital Signs Temperature 97.3 F 11/03/23 07:40 Pulse Rate 88 11/03/23 07:40 Respiratory Rate 17 11/03/23 07:40 Blood Pressure 150/71 11/03/23 07:40 O2 Sat by Pulse Oximetry 95 11/03/23 07:40 Intake & Output: Intake & Output 10/31/23 11/01/23 11/02/23 11/03/23 11:59 11:59 11:59 11:59 Intake Total 1014 520 450 Output Total 400 2200 200 Balance 614 -1680 250 Weight 63.1 kg - Lab Result Diagrams: 11/03/23 04:50 11/03/23 04:50 Lab Results-Last 24 Hrs: Lab Results-Last 24 Hours 11/02/23 11/02/23 11/02/23 Range/Units 11:50 14:16 17:02 WBC (4.0-10.5) x10^3/uL RBC (4.1-5.4) x10^6/uL Hgb (12.0-16.0) g/dL Hct (35-47) % MCV (78-100) fL MCH (26-32) pg MCHC (32-36) g/dL RDW (11.5-14.0) % Plt Count (150-450) x10^3/uL MPV (7.5-11.0) fL Sodium 128 L (135-145) mmol/L Potassium 3.6 (3.5-5.1) mmol/L Chloride 95 L (98-107) mmol/L Carbon Dioxide 23 (22-30) mmol/L Anion Gap 12.7 (5-15) MEQ/L BUN 14 (7-17) mg/dL Creatinine 0.68 (0.52-1.04) mg/dL Estimated GFR 84.2 ML/MIN Glucose 121 H (74-106) mg/dL POC Glucometer 106 114 H (74 to 106) mg/dL Calcium 8.9 (8.4-10.2) mg/dL Magnesium 1.9 (1.6-2.3) mg/dL Total Bilirubin (0.2-1.3) mg/dL AST (14-36) U/L ALT (0-35) U/L Alkaline Phosphatase (38-126) U/L Serum Total Protein (6.3-8.2) g/dL Albumin (3.5-5.0) g/dL Urine Color (Yellow) Urine Appearance (Clear) Urine pH (4.6-8.0) Ur Specific [place] (1.005-1.030) Urine Protein (Negative) Urine Glucose (UA) (Negative) mg/dL Urine Ketones (Negative) Urine Blood (Negative) Urine Nitrite (Negative) Urine Bilirubin (Negative) Urine Urobilinogen (0.2) mg/dL Ur Leukocyte Esterase (Negative) U Hyaline Cast (Auto) (0-2) /LPF Urine Microscopic RBC (0-5) /HPF Urine Microscopic WBC (0-5) /HPF Ur Epithelial Cells (None Seen) /HPF Urine Bacteria (None Seen) /HPF Urine Culture Reflexed (NO) 11/02/23 11/02/23 11/02/23 Range/Units 17:30 18:00 21:48 WBC (4.0-10.5) x10^3/uL RBC (4.1-5.4) x10^6/uL Hgb (12.0-16.0) g/dL Hct (35-47) % MCV (78-100) fL MCH (26-32) pg MCHC (32-36) g/dL RDW (11.5-14.0) % Plt Count (150-450) x10^3/uL MPV (7.5-11.0) fL Sodium 128 L (135-145) mmol/L Potassium (3.5-5.1) mmol/L Chloride (98-107) mmol/L Carbon Dioxide (22-30) mmol/L Anion Gap (5-15) MEQ/L BUN (7-17) mg/dL Creatinine (0.52-1.04) mg/dL Estimated GFR ML/MIN Glucose (74-106) mg/dL POC Glucometer 139 H (74 to 106) mg/dL Calcium (8.4-10.2) mg/dL Magnesium (1.6-2.3) mg/dL Total Bilirubin (0.2-1.3) mg/dL AST (14-36) U/L ALT (0-35) U/L Alkaline Phosphatase (38-126) U/L Serum Total Protein (6.3-8.2) g/dL Albumin (3.5-5.0) g/dL Urine Color Yellow (Yellow) Urine Appearance Clear (Clear) Urine pH 7.5 (4.6-8.0) Ur Specific [place] 1.015 (1.005-1.030) Urine Protein Negative (Negative) Urine Glucose (UA) Negative (Negative) mg/dL Urine Ketones 40 A (Negative) Urine Blood Negative (Negative) Urine Nitrite Negative (Negative) Urine Bilirubin Negative (Negative) Urine Urobilinogen 1.0 A (0.2) mg/dL Ur Leukocyte Esterase Negative (Negative) U Hyaline Cast (Auto) 3-5 A (0-2) /LPF Urine Microscopic RBC 3-5 (0-5) /HPF Urine Microscopic WBC 0-2 (0-5) /HPF Ur Epithelial Cells None Seen (None Seen) /HPF Urine Bacteria None Seen (None Seen) /HPF Urine Culture Reflexed NO (NO) 11/03/23 11/03/23 11/03/23 Range/Units 04:50 04:50 07:49 WBC 9.4 (4.0-10.5) x10^3/uL RBC 4.23 (4.1-5.4) x10^6/uL Hgb 13.0 (12.0-16.0) g/dL Hct 37.1 (35-47) % MCV 87.7 (78-100) fL MCH 30.7 (26-32) pg MCHC 35.0 (32-36) g/dL RDW 12.7 (11.5-14.0) % Plt Count 375 (150-450) x10^3/uL MPV 8.7 (7.5-11.0) fL Sodium 130 L (135-145) mmol/L Potassium 4.0 (3.5-5.1) mmol/L Chloride 97 L (98-107) mmol/L Carbon Dioxide 23 (22-30) mmol/L Anion Gap 14.3 (5-15) MEQ/L BUN 15 (7-17) mg/dL Creatinine 0.57 (0.52-1.04) mg/dL Estimated GFR 87.9 ML/MIN Glucose 129 H (74-106) mg/dL POC Glucometer 112 H (74 to 106) mg/dL Calcium 9.3 (8.4-10.2) mg/dL Magnesium (1.6-2.3) mg/dL Total Bilirubin 0.90 (0.2-1.3) mg/dL AST 31 (14-36) U/L ALT 14 (0-35) U/L Alkaline Phosphatase 109 (38-126) U/L Serum Total Protein 7.6 (6.3-8.2) g/dL Albumin 4.3 (3.5-5.0) g/dL Urine Color (Yellow) Urine Appearance (Clear) Urine pH (4.6-8.0) Ur Specific [place] (1.005-1.030) Urine Protein (Negative) Urine Glucose (UA) (Negative) mg/dL Urine Ketones (Negative) Urine Blood (Negative) Urine Nitrite (Negative) Urine Bilirubin (Negative) Urine Urobilinogen (0.2) mg/dL Ur Leukocyte Esterase (Negative) U Hyaline Cast (Auto) (0-2) /LPF Urine Microscopic RBC (0-5) /HPF Urine Microscopic WBC (0-5) /HPF Ur Epithelial Cells (None Seen) /HPF Urine Bacteria (None Seen) /HPF Urine Culture Reflexed (NO) Micro Results-Entire Visit: Microbiology 10/31/23 13:20 Urine Culture - Final Clean Catch Midstream <10K NORMAL SKIN INDY PROBABLE SKIN CONTAMINANT 10/31/23 13:50 Blood Culture - Preliminary Blood 10/31/23 13:43 Blood Culture - Preliminary Blood Accuchecks Date 11/03/23 Date 11/02/23 Date 11/02/23 Time 17:16 Time 12:37 - Radiology Exams Ordered Rad Exams-Entire Visit: Radiology Procedures Category Date Time Status MRI BRAIN W/O CONTRAST [MRI] Routine Exams 11/01/23 08:30 Completed - Procedures and Test Procedures and Tests throughout Hospitalization: Therapy Orders & Screens 10/31/23 20:36 OT Screen per Nursing Assess ONCE Comment: Protocol Order Physician Instructions: Greater than 3 points order OT Admission Screening Reason For Exam: Triggered on Admission Diagnosis: Generalized weakness, UTI, uncontrolled hypertension, fall Open Wound/Cellutlitis/Pressure Ulcers: No Acute Fx/ORIF/Change in wt bearing status: No Severe MUSCULOSKELETAL pain: No ADL Dysfunction: Yes Acute CVA w/Hemiparesis/Hemiplegia: No Decreased Functional Mobility/Strength: Yes Sprain/Strain: No Acute Post-op Mobility Dysfunction: No Total Points: 4 PT Screen per Nursing Assess ONCE Comment: Protocol Order Physician Instructions: Greater than 3 points order PT Admission Screenin Reason For Exam: Triggered on Admission Diagnosis: Generalized weakness, UTI, uncontrolled hypertension, fall Open Wound/Cellutlitis/Pressure Ulcers: No Acute Fx/ORIF/Change in wt bearing status: No Severe MUSCULOSKELETAL pain: No ADL Dysfunction: Yes Acute CVA w/Hemiparesis/Hemiplegia: No Decreased Functional Mobility/Strength: Yes Sprain/Strain: No Acute Post-op Mobility Dysfunction: No Total Points: 4 ST Screen per Nursing Assess ONCE Comment: Protocol Order Physician Instructions: Greater than [address] Admission Screening Reason For Exam: Triggered on Admission Diagnosis: Generalized weakness, UTI, uncontrolled hypertension, fall CVA/Dyshpagia/Aphasia: No Cognitive Deficits: No Dehydration/Nutrition Deficit: Yes Reflux: No Oral-Motor Difficulties: No Pneumonia: No Custodial Resident: No Total Points: 5 10/31/23 21:14 PT Eval & Treat (MD Order) ONCE Reason for Eval:: eval and treat, repeated falls/malaise Diagnosis: Generalized weakness, uncontrolled hypertension, fall OT Eval and Treat (MD Order) ONCE Comment: Physician Instructions: Reason For Exam: Diagnosis: Generalized weakness, fall Discharge Exam General Appearance: no apparent distress, alert Neurologic Exam: alert, oriented x 3, cooperative, normal mood/affect, nml cerebellar function, sensation nml, No motor deficits Eye Exam: PERRL, EOMI, eyes nml inspection Ears, Nose, Throat Exam: normal ENT inspection, pharynx normal, moist mucous membranes Neck Exam: normal inspection, non-tender, supple, full range of motion Respiratory Exam: normal breath sounds, lungs clear, No respiratory distress Cardiovascular Exam: regular rate/rhythm, normal heart sounds Gastrointestinal/Abdomen Exam: soft, No tenderness, No mass Pelvic Exam: deferred Rectal Exam: deferred Back Exam: normal inspection, normal range of motion, No CVA tenderness, No vertebral tenderness Extremity Exam: normal inspection, normal range of motion Skin Exam: normal color, warm, dry Final Diagnosis/Problem List - Final Discharge Diagnosis/Problem (1) Uncontrolled hypertension Current Visit: No Status: Acute Code(s): I10 - ESSENTIAL (PRIMARY) HYP ERTENSION (2) Hypokalemia Current Visit: Yes Status: Acute Code(s): E87.6 - HYPOKALEMIA (3) Hypomagnesemia Current Visit: Yes Status: Acute Code(s): E83.42 - HYPOMAGNESEMIA (4) Acute UTI Current Visit: No Status: Acute Code(s): N39.0 - URINARY TRACT INFECTION, SITE NOT SPECIFIED (5) Confusion Current Visit: No Status: Acute Code(s): R41.0 - DISORIENTATION, UNSPECIFIED (6) Weakness Current Visit: No Status: Acute Code(s): R53.1 - WEAKNESS (7) Type II diabetes mellitus, well controlled Current Visit: Yes Status: Chronic Code(s): E11.9 - TYPE 2 DIABETES MELLITUS WITHOUT COMPLICATIONS (8) Hyponatremia Current Visit: Yes Status: Acute Code(s): E87.1 - HYPO-OSMOLALITY AND HYPONATREMIA (9) Depression Current Visit: Yes Status: Chronic Code(s): F32.A - DEPRESSION, UNSPECIFIED (10) Hyperlipidemia Current Visit: Yes Status: Chronic Assessment & Plan: (1) Uncontrolled hypertension Current Visit: No Status: Acute Assessment & Plan: Resume home lisinopril, amiloride, hydrochlorothiazide. - hydralizine PRN added 11/01 - lisinopril increased to 40mg QD - Amlodipine 5mg added - HCTZ stopped - Consider stopping Amiloride d/t unsteadiness and getting up to urinate often causing disrupt in sleep 11/02 - added clonidine 0.1mg PRN - Bp stable - family to keep log of BP and f/u with PCP Code(s): I10 - ESSENTIAL (PRIMARY) HYPERTENSION (2) Hypokalemia Current Visit: Yes Status: Acute Assessment & Plan: - K+3.1- replaced- trend 11/01 - K+ 3.1 replaced- recheck this afternoon - rechecked and 3.6 resolved Code(s): E87.6 - HYPOKALEMIA (3) Hypomagnesemia Current Visit: Yes Status: Acute Assessment & Plan: - Mg+ 1.3 replaced- trend 11/01 - Mg+ 1.4 replaced- recheck this afternoon - rechecked 1.9 and resolved Code(s): E83.42 - HYPOMAGNESEMIA (4) Acute UTI Current Visit: No Status: Acute Assessment & Plan: - UC negative - Rocephin stopped - Continue Keflex @ home dose 11/01 - recheck UA- increased confusion and elevated WBC this AM on morning labs- negative 11/02 - WBC normal Code(s): N39.0 - URINARY TRACT INFECTION, SITE NOT SPECIFIED (5) Confusion Current Visit: No Status: Acute Assessment & Plan: - CT head: IMPRESSION: 1. The above-mentioned findings are suggestive of mild microvascular ischemic changes and senile changes. 2. The rest of non-enhanced CT study for the brain is unremarkable. 3. Early changes of acute stroke may sometimes not be detected on a CT scan.If clinically needed, MRI with diffusion-weighted imaging is recommended for further evaluation. - MRI with contrast ordered- unable to complete, pt asked to stop exam before contrast gave. - MRI w/o contrast: Impression: 1. MRI exam is incomplete and therefore limited. 2. Atrophy and degenerative micro-ischemia within normal limits for patient's age. 3. No acute intracranial abnormalities or evidence for evolving large vessel territorial stroke. 4. Incidental fluid signal right mastoid air cells presumed inflammatory. 11/01 - improved this am and then increased confusion this afternoon - recheck UA- negative 11/02 - A&O x3 today - may have hospital related delirium Code(s): R41.0 - DISORIENTATION, UNSPECIFIED (6) Weakness Current Visit: No Status: Acute Assessment & Plan: - with falls - Pelvis CT IMPRESSION: 1. No definite acute fractures or dislocation. 2. Fat-containing right groin hernia. 3. The rest of the findings as described - Chest XR: Portable chest underinflated with right base subsegmental atelectasis/scarring and cardiomegaly obscuring left lung base. Visualized upper lungs clear. Bony thorax intact with osteopenia and moderate degenerative changes. - Cervical spine CT IMPRESSION: No acute osseous findings. No fractures or soft tissue swelling. Cervical spondylotic changes at multiple levels showing marginal osteophytosis and reduced intervertebral disc spaces at multiple levels, most pronounced at C5-C6 and C6-C7 levels. MRI may be recommended for further evaluation. - PT/OT - Daughter wants [facility]- Case management to discuss with family. - 2:2 radiation treatments 11/01 - improved- walking well with PT today 11/02 - resolved Code(s): R53.1 - WEAKNESS (7) Type II diabetes mellitus, well controlled Current Visit: Yes Status: Chronic Assessment & Plan: - A1C 5.90- controlled - metformin - Humalog s/s - accuchecks AC/HS Code(s): E11.9 - TYPE 2 DIABETES MELLITUS WITHOUT COMPLICATIONS (8) Hyponatremia Current Visit: Yes Status: Acute Assessment & Plan: - mild Na+ 131- trend 11/01 - Na+ 129- will recheck this afternoon - HCTZ stopped 11/02 - Na+ 130 Code(s): E87.1 - HYPO-OSMOLALITY AND HYPONATREMIA (9) Depression Current Visit: Yes Status: Chronic Qualifiers: Major depression recurrence: recurrent Assessment & Plan: - with anxiety - continue lexapro Code(s): F32.A - DEPRESSION, UNSPECIFIED (10) Hyperlipidemia Current Visit: Yes Status: Chronic Assessment & Plan: - Continue statin Code(s): E78.5 - HYPERLIPIDEMIA, UNSPECIFIED - Discharge Discharge Date: 11/03/23 (famly to help at home all times) Disposition: Home, Self-Care Condition: Stable Prescriptions: New Amiloride HCl 5 mg PO DAILY 30 Days #30 tablet Amlodipine Besylate 5 mg [Norvasc 5 mg] 5 mg PO QAM 30 Days #30 tablet Continue Metformin HCl 500 mg [Glucophage 500 MG] 500 mg PO BIDWM Aspirin 81 gm Chew [Baby Aspirin 81 mg Chew] 81 mg PO DAILY Lisinopril 20 mg [Zestril 20 MG] 20 mg PO DAILY Escitalopram Oxalate [Lexapro] 10 mg PO DAILY Simvastatin 20Mg [Zocor 20Mg] 20 mg PO HS Cephalexin Mh 500 mg [Keflex 500 mg] 250 mg PO DAILY Discontinued Amiloride/Hydrochlorothiazide [Amiloride HCl-Hctz 5-50 mg Tab] 1 each PO DAILY Follow up with: CLARISSE HYLTON [COURTESY STAFF] - 11/25/23 11:15 am KENDRA LAMB NP [Primary Care Provider] - 11/09/23 2:00 pm
[2023-11-03 11:40] VITALS: PULSE 98; RESP 20; TEMP 97.1; O2SAT 96
[2023-11-03] MEDS: CLONIDINE 0.1 MG TABLET PO ONE (12:00)
[2023-11-03 13:18] VITALS: BP 150/82
== END 2023-11-03 14:07 | disposition home or self-care (01) ==
LOC: ED 12:00 → MED SURG 20:03
PROVIDERS: ADMIT Internal Medicine; ATTEND Internal Medicine
DX: I10 Essential (primary) hypertension (principal); E87.6 Hypokalemia; E83.42 Hypomagnesemia; N39.0 Urinary tract infection, site not specified; R41.0 Disorientation, unspecified; R53.1 Weakness; E11.9 Type 2 diabetes mellitus without complications; E87.1 Hypo-osmolality and hyponatremia; F32.A Depression, unspecified; E78.5 Hyperlipidemia, unspecified; Z79.899 Other long term (current) drug therapy; Z85.118 Personal history of other malignant neoplasm of bronchus and lung
CPT/HCPCS: 36000; 36415; 70450; 70551; 71045; 72125; 72192; 80048; 80053; 81001; 82947; 83036; 83605; 83690; 83735; 84145; 84295; 84443; 84484; 85025; 85027; 87040; 87086; 93005; 97110; 97161; 97165; 97530; 99284; Q3014; 93268; J0360; J0696; J1650; J3480; A9270-GY; G0378; J3475

== ENCOUNTER 2023-11-25 15:40 | Inpatient (IN) | payer MEDICARE ==
[2023-11-25] MEDS: Sodium Chloride 0.9% 1000 ML 1,000 ML IV SCH (16:01)
--- NOTE | 2023-11-25 16:33 | XRAY ---
Indication: Pain following fall. Comparison: None AP pelvis and 2 view right hip demonstrates displaced right femur subcapital acute fracture. Elsewhere osteopenia, mild left hip degenerative arthropathy, moderate lower lumbar degenerative spondylosis, and mild scattered arteriosclerotic calcifications.
--- NOTE | 2023-11-25 16:35 | XRAY ---
Indication: Weakness. Status post fall. Comparison: October 31, 2023 Portable chest unchanged again with chronic right hemidiaphragm elevation and right base subsegmental atelectasis/scarring. Remaining heart and left lung unremarkable. Bony thorax intact again with osteopenia and degenerative changes. No new/acute findings.
[2023-11-25 16:38] LABS: Absolute Neutrophil Ct (ANC) 8.67 x10^3/uL (1.56-6.13); BASOPHIL % 0.2 % (0.1-1.2); Basophil (Absolute #) 0.02 x10^3/uL (0.01-0.08); Eosinophil % 0.9 % (0.7-5.8); Hematocrit 36.2 % (34.1-44.9); Hemoglobin 12.9 g/dL (11.2-15.7); IMMATURE GRAN # 0.13 x10^3u/L (0.001-0.031); IMMATURE GRAN % 1.2 % (0.001-0.429); Lymphocyte (Absolute #) 0.77 x10^3/uL (1.18-3.74); Lymphocytes % 7.1 % (19.3-51.7); Mean Cell Volume 86.6 fL (79.4-94.8); Mean Corpuscular Hemoglobin 30.9 pg (25.6-32.2); Mean Corpuscular Hgb Concent. 35.6 g/dL (32.2-35.5); Mean Platelet Volume 8.7 fL (9.4-12.3); Monocyte (Absolute #) 1.11 x10^3/uL (0.24-0.86); Monocytes % 10.3 % (4.7-12.5); Neutrophil % 80.3 % (34.0-71.1); Platelet Count 398 x10^3/uL (182-369); Red Blood Count 4.18 x10^6/uL (3.93-5.22); Red Cell Distribution Width 12.6 % (11.7-14.4); White Blood Count 10.8 x10^3/uL (3.98-10.04)
--- NOTE | 2023-11-25 16:43 | ERPHSYRPT ---
- History of Present Illness Time Seen by Provider: 11/25/23 15:46 Source: patient, family, EMS Exam Limitations: no limitations Patient Subjective Stated Complaint: Daughter states that she has been confused and hasn't been able to get up and walk on her walker Triage Nursing Assessment: Pt brought to the ER by EMS, vitals wnl, rates generalized pain as 10/10 mainly in the right hip/back area, pulses normal, confused, fell on Wednesday and hasn't been able to use her walker since, pt began getting confused about 2 days ago, pt just completed a 7 days course of an antibiotic for a UTI, pt has not slept for the past 2 days Physician History: 88-year-old female with history of hypertension, hyperlipidemia, diabetes mellitus, skin cancer, small cell cancer of the lung finished course of radiations presented to the ER with generalized weakness, off-and-on confusion with frequent falls and refusing to walk for the last 4 days after she fell forward and strained her right groin area. Patient is unable to lift her right lower extremity off of the bed and is shortened, externally rotated. Unsure about hitting her head. Denies any chest pain, difficulty breathing, abdominal pain nausea or vomiting. Family thinks patient would be dehydrated as she is not eating and drinking well and is unable to sleep for the last couple of days. Recently finished course of antibiotics for UTI. Allergies/Adverse Reactions: niacin Allergy (Intermediate, Verified 11/25/23 16:01) Rash Home Medications: Aspirin 81 gm Chew [Baby Aspirin 81 mg Chew] 81 mg PO DAILY 01/26/23 [History] Lisinopril 20 mg [Zestril 20 MG] 10 mg PO DAILY 01/26/23 [History] Metformin HCl 500 mg [Glucophage 500 MG] 500 mg PO BIDWM 01/26/23 [History] Escitalopram Oxalate [Lexapro] 10 mg PO DAILY 03/05/23 [History] Simvastatin 20Mg [Zocor 20Mg] 20 mg PO HS 09/22/23 [History] Cephalexin Mh 500 mg [Keflex 500 mg] 250 mg PO DAILY 10/31/23 [History] Hx Tetanus, Diphtheria Vaccination/Date Given: Yes Hx Influenza Vaccination/Date Given: Yes Hx Pneumococcal Vaccination/Date Given: Yes Travel Risk - International Travel Have you traveled outside of the country in past 3 weeks: No - Emerging Infectious Disease Are you exhibiting symptoms associated with any current EIDs: No - Review of Systems Constitutional: Fatigue, Weakness Eyes: No Symptoms Ears, Nose, & Throat: No Symptoms Respiratory: No Symptoms Cardiac: No Symptoms Abdominal/Gastrointestinal: No Symptoms Genitourinary Symptoms: No Symptoms Musculoskeletal: Deformity, Fall, Injury, Joint Pain Skin: No Symptoms Endocrine: No Symptoms Hematologic/Lymphatic: No Symptoms - Past Medical History Pertinent Past Medical History: Yes Neurological History: No Pertinent History ENT History: No Pertinent History Cardiac History: High Cholesterol, Hypertension, Other Respiratory History: Lung Cancer Endocrine Medical History: Diabetes Type II Musculoskeletal History: No Pertinent History GI Medical History: No Pertinent History History: No Pertinent History Psycho-Social History: Anxiety Female Reproductive Disorders: No Pertinent History Other Medical History: heart murmur- Dr Verma, 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 - Past Surgical History Past Surgical History: Yes Neuro Surgical History: No Pertinent History Cardiac: No Pertinent History Respiratory: No Pertinent History Gastrointestinal: No Pertinent History Genitourinary: No Pertinent History Musculoskeletal: No Pertinent History Female Surgical History: Hysterectomy Significant Family History: no pertinent family hx - Social History Smoking Status: Never smoker Exposure to second hand smoke: No Drug Use: none Patient Lives Alone: No - Social Determinants of Health Will the patient participate in the screening: Yes Do you worry about a steady place to live?: No Do you have any problems with any of the following?: No known problems In the past 12 months,have you had to go without utilities?: No Transportation Issues: No Has anyone in your support network made you feel unsafe?: No Have you or anyone in your house had to go without enough: No - Nursing Vital Signs Nursing Vital Signs: Initial Vital Signs Temperature 96.7 F 11/25/23 15:47 Pulse Rate 97 H 11/25/23 15:47 Blood Pressure 103/71 11/25/23 15:47 O2 Sat by Pulse Oximetry 97 11/25/23 15:47 Pain Scale Pain Intensity 10 - [place] Coma Score Best Eye Response ([place]): (4) open spontaneously Best Verbal Response (Epi): (5) oriented Best Motor Response (Epi): (6) obeys commands Epi Total: 15 - Physical Exam General Appearance: no apparent distress, alert Head Injury: no evidence of injury Eye Exam: PERRL/EOMI, eyes nml inspection ENT Exam: airway nml, No evidence of ENT injury, No dental injury Neck Exam: supple, trachea midline, full range of motion, normal alignment Respiratory/Chest Exam: normal breath sounds, No chest tenderness, No respiratory distress Cardiovascular Exam: normal heart sounds, regular rate/rhythm Gastrointestinal Exam: soft, normal bowel sounds, No tenderness Back Exam: normal inspection Extremity Exam: other Neurologic Exam: alert, oriented x 3, cooperative Skin Exam: normal color SpO2 Interpretation: normal SpO2: 97 O2 Delivery: Room Air Ordered Tests: Active Orders 24 hr Category Date Time Status Victoria [Catheter-Cl[place] Victoria] STAT Care 11/25/23 17:46 Active IV Insertion STAT Care 11/25/23 15:46 Active NPO (ED) STAT Care 11/25/23 15:46 Active CERVICAL SPINE WO CONTRAST [CT] Stat Exams 11/25/23 16:39 Taken CHEST 1 VIEW (PORTABLE) Stat Exams 11/25/23 15:47 Completed HEAD WITHOUT CONTRAST [CT] Stat Exams 11/25/23 16:38 Taken HIP UNI (2V) INCL PEL IF DONE Stat Exams 11/25/23 15:47 Completed PELVIS WITHOUT CONTRAST [CT] Stat Exams 11/25/23 16:39 Taken BLOOD CULTURE Stat Lab 11/25/23 16:42 Received CBC W DIFF Stat Lab 11/25/23 16:00 Completed CK-Creatinine Phosphokinase Stat Lab 11/25/23 16:00 Completed CMP Stat Lab 11/25/23 16:00 Completed Lactic Acid Stat Lab 11/25/23 15:46 Completed MAGNESIUM Stat Lab 11/25/23 16:00 Completed TROPONIN Q4H Lab 11/25/23 16:00 Completed TROPONIN Q4H Lab 11/25/23 19:00 Received TROPONIN Q4H Lab 11/26/23 00:00 Ordered UA W/RFX UR CULTURE Stat Lab 11/25/23 17:56 Completed Transfer Order Routine Transfer 11/25/23 Ordered Medication Summary Generic Name Dose Route Start Last Admin Trade Name Freq PRN Reason Stop Dose Admin Sodium Chloride 1,000 mls @ 100 mls/hr 11/25/23 16:00 11/25/23 16:01 Sodium Chloride 0.9% 1000 Ml IV 12/25/23 15:59 100 mls/hr .Q10H MARIA G Administration Magnesium Sulfate/Dextrose 100 mls @ 100 mls/hr 11/25/23 17:00 11/25/23 19:04 Magnesium 1 Gm / 100 Ml D5w IV 11/25/23 18:59 100 mls/hr Q1H MARIA G Administration Lab/Rad Data: Laboratory Result Diagrams 11/25/23 16:00 11/25/23 16:00 Laboratory Results 11/25/23 11/25/23 11/25/23 Range/Units 17:56 16:00 16:00 WBC (3.98-10.04) x10^3/uL RBC (3.93-5.22) x10^6/uL Hgb (11.2-15.7) g/dL Hct (34.1-44.9) % MCV (79.4-94.8) fL MCH (25.6-32.2) pg MCHC (32.2-35.5) g/dL RDW (11.7-14.4) % Plt Count (182-369) x10^3/uL MPV (9.4-12.3) fL Gran % (34.0-71.1) % Immature Gran % (Auto) (0.001-0.429) % Nucleat RBC Rel Count (0.00-0.2) % Eos # (Auto) (0.04-0.36) x10^3/uL Immature Gran # (Auto) (0.001-0.031) x10^3u/L Absolute Lymphs (auto) (1.18-3.74) x10^3/uL Absolute Monos (auto) (0.24-0.86) x10^3/uL Absolute Nucleated RBC (0.00-0.012) x10^3u/L Lymphocytes % (19.3-51.7) % Monocytes % (4.7-12.5) % Eosinophils % (0.7-5.8) % Basophils % (0.1-1.2) % Absolute Granulocytes (1.56-6.13) x10^3/uL Basophils # (0.01-0.08) x10^3/uL Sodium 123 L (135-145) mmol/L Potassium 3.8 (3.5-5.1) mmol/L Chloride 88 L (98-107) mmol/L Carbon Dioxide 28 (22-30) mmol/L Anion Gap 10.8 (5-15) MEQ/L BUN 18 H (7-17) mg/dL Creatinine 0.60 (0.52-1.04) mg/dL Estimated GFR 86.8 ML/MIN Glucose 126 H (74-106) mg/dL Lactic Acid (0.4-2.0) Calcium 9.3 (8.4-10.2) mg/dL Magnesium 1.3 L (1.6-2.3) mg/dL Total Bilirubin 0.80 (0.2-1.3) mg/dL AST 39 H (14-36) U/L ALT 18 (0-35) U/L Alkaline Phosphatase 101 (38-126) U/L Creatine Kinase 69 (30-135) U/L Troponin I < 0.012 (0.000-0.033) ng/mL Serum Total Protein 6.6 (6.3-8.2) g/dL Albumin 3.6 (3.5-5.0) g/dL Urine Color Yellow (Yellow) Urine Appearance Clear (Clear) Urine pH 6.5 (4.6-8.0) Ur Specific [place] 1.015 (1.005-1.030) Urine Protein Negative (Negative) Urine Glucose (UA) Negative (Negative) mg/dL Urine Ketones Trace A (Negative) Urine Blood Negative (Negative) Urine Nitrite Negative (Negative) Urine Bilirubin Negative (Negative) Urine Urobilinogen 1.0 A (0.2) mg/dL Ur Leukocyte Esterase Negative (Negative) U Hyaline Cast (Auto) NONE SEEN (0-2) /LPF Urine Microscopic RBC 0-2 (0-5) /HPF Urine Microscopic WBC 0-2 (0-5) /HPF Ur Epithelial Cells None Seen (None Seen) /HPF Urine Bacteria None Seen (None Seen) /HPF Urine Culture Reflexed NO (NO) 11/25/23 11/25/23 Range/Units 16:00 15:46 WBC 10.8 H (3.98-10.04) x10^3/uL RBC 4.18 (3.93-5.22) x10^6/uL Hgb 12.9 (11.2-15.7) g/dL Hct 36.2 (34.1-44.9) % MCV 86.6 (79.4-94.8) fL MCH 30.9 (25.6-32.2) pg MCHC 35.6 H (32.2-35.5) g/dL RDW 12.6 (11.7-14.4) % Plt Count 398 H (182-369) x10^3/uL MPV 8.7 L (9.4-12.3) fL Gran % 80.3 H (34.0-71.1) % Immature Gran % (Auto) 1.2 H (0.001-0.429) % Nucleat RBC Rel Count 0.0 (0.00-0.2) % Eos # (Auto) 0.10 (0.04-0.36) x10^3/uL Immature Gran # (Auto) 0.13 H (0.001-0.031) x10^3u/L Absolute Lymphs (auto) 0.77 L (1.18-3.74) x10^3/uL Absolute Monos (auto) 1.11 H (0.24-0.86) x10^3/uL Absolute Nucleated RBC 0.00 (0.00-0.012) x10^3u/L Lymphocytes % 7.1 L (19.3-51.7) % Monocytes % 10.3 (4.7-12.5) % Eosinophils % 0.9 (0.7-5.8) % Basophils % 0.2 (0.1-1.2) % Absolute Granulocytes 8.67 H (1.56-6.13) x10^3/uL Basophils # 0.02 (0.01-0.08) x10^3/uL Sodium (135-145) mmol/L Potassium (3.5-5.1) mmol/L Chloride (98-107) mmol/L Carbon Dioxide (22-30) mmol/L Anion Gap (5-15) MEQ/L BUN (7-17) mg/dL Creatinine (0.52-1.04) mg/dL Estimated GFR ML/MIN Glucose (74-106) mg/dL Lactic Acid 1.4 (0.4-2.0) Calcium (8.4-10.2) mg/dL Magnesium (1.6-2.3) mg/dL Total Bilirubin (0.2-1.3) mg/dL AST (14-36) U/L ALT (0-35) U/L Alkaline Phosphatase (38-126) U/L Creatine Kinase (30-135) U/L Troponin I (0.000-0.033) ng/mL Serum Total Protein (6.3-8.2) g/dL Albumin (3.5-5.0) g/dL Urine Color (Yellow) Urine Appearance (Clear) Urine pH (4.6-8.0) Ur Specific [place] (1.005-1.030) Urine Protein (Negative) Urine Glucose (UA) (Negative) mg/dL Urine Ketones (Negative) Urine Blood (Negative) Urine Nitrite (Negative) Urine Bilirubin (Negative) Urine Urobilinogen (0.2) mg/dL Ur Leukocyte Esterase (Negative) U Hyaline Cast (Auto) (0-2) /LPF Urine Microscopic RBC (0-5) /HPF Urine Microscopic WBC (0-5) /HPF Ur Epithelial Cells (None Seen) /HPF Urine Bacteria (None Seen) /HPF Urine Culture Reflexed (NO) - Progress Progress: improved, pain not gone completely Progress Note: 11/25/23 18:36 88-year-old is evaluated for recurrent falls, generalized weakness and recent fall with right hip pain and inability to ambulate/weightbearing. Patient has a shortened and externally rotated right lower extremity. She is given fluids and symptomatic treatment, hip x-ray showed displaced femur fracture but no pelvic fractures otherwise reviewed by me followed by official read. CT head and cervical spines are negative per preliminary report. Chest x-ray negative for any acute cardiopulmonary findings reviewed by me followed by official read. Workup otherwise showed normal white count, low sodium of 123 with a normal potassium. No other acute chemistry abnormalities. No UTI. I have also obtained CT pelvis which showed acute fractures which also involve the head of femur. I have discussed with Dr. Peck orthopedic surgeon on-call, reviewed history, workup and recommended admission to hospitalist service, type screen and needs to optimize sodium before patient can be taken to the OR. I have shared the results of workup with patient and family who understand and agree with admission. Discussed with Dr. Ambrose, reviewed history, workup, orthopedics recommendation and patient is accepted for admission. Discussed with : Other (Dr. Hope specialist, Dr. Peck orthopedic surgeon) Will see patient in: hospital (full admit) Counseled pt/family regarding: lab results, diagnosis, need for follow-up, rad results Medical Desision Making - Independent Historian Additional History obtained from: Child, Dye Weigher Helper/EMT - Discussion of managment Care discussed with:: specialist (Dr. Peck orthopedic surgeon and Dr. Ambrose hospitalist) Reviewed:: Test results Agreed on:: Treatment plan, decision to admit Will see patient: in hospital - Diagnostic Testing Radiological Interpretation: Interpreted by me, Reviewed by me, Teleradiologist Report - Departure Departure Disposition: In-patient Admission Clinical Impression: Hip fracture, Hyponatremia, Recurrent falls Condition: Stable Critical Care Time: No Referrals: KENDRA LAMB NP [Primary Care Provider] - Follow up/PCP as directed
[2023-11-25 16:50] LABS: ALBUMIN 3.6 g/dL (3.5-5.0); ANION GAP 10.8 MEQ/L (5-15); BILIRUBIN,TOTAL 0.8 mg/dL (0.2-1.3); Calcium 9.3 mg/dL (8.4-10.2); Creatinine 1 0.6 mg/dL (0.52-1.04); EST GLOMERULAR FILTRATION RATE 86.8 ML/MIN; MAGNESIUM 1.3 mg/dL (1.6-2.3); Potassium 3.8 mmol/L (3.5-5.1); Total Protein 6.6 g/dL (6.3-8.2)
[2023-11-25 18:26] LABS: ADD URINE CULTURE? NO (NO); Appearance Clear (Clear); Bacteria None Seen /HPF (None Seen); Bilirubin Negative (Negative); Blood Negative (Negative); Epithelial Cells None Seen /HPF (None Seen); Glucose, Urine Negative (Negative); Hyaline Casts NONE SEEN /LPF (0-2); Ketones Trace (Negative); Leukocyte Esterase Negative (Negative); Nitrite Negative (Negative); Ph 6.5 (4.6-8.0); Protein,Urine Dip Negative (Negative); RBC 0-2 /HPF (0-5); Specific Gravity 1.015 (1.005-1.030); WBC 0-2 /HPF (0-5)
[2023-11-25] MEDS: Magnesium 1 Gm / 100 Ml D5W*** 100 ML IV SCH (19:04)
[2023-11-25] MEDS ORDERED: Magnesium 1 Gm / 100 Ml D5W*** 100 ML IV ONE (19:47)
[2023-11-25 19:54] LABS: ABO TYPING O; Antibody Screen NEGATIVE (NEGATIVE); RH TYPING POSITIVE
[2023-11-25] MEDS: TYLENOL 325 MG PO PRN (23:46)
--- NOTE | 2023-11-26 00:25 | PCM.HP ---
History of Present Illness - Chief Complaint Chief Complaint: confusion, hip fx Date: 11/26/23 History of Present Illness: Ms. Campuzano is an 88 year-old female with HTN, HLD, DM2, and SCLC s/p XRT who presents with a hip fracture after a GLF and altered mental status. She had a ground level fall last Wednesday (tripped on carpet and got tangled up with her walker), and subsquently had groin and back pain. She was managed with OTC NASAIDs and muscle relaxers by her PCP, but with continued pain, she sought medical attention at [facility] today. Arrival laboratory data was remarkable for a sodium of 123, and imaging revealed a right hip fracture. On my examination, she remains pleasantly confused with stable vital signs - CT head and UA were unremarkable. - Review of Systems Constitutional: Other (UNABLE TO OBTAIN BASED ON ALTERED MENTAL STATUS) Medications & Allergies Home Medications: Home Medication List Aspirin 81 gm Chew [Baby Aspirin 81 mg Chew] 81 mg PO DAILY 01/26/23 [History Confirmed 11/25/23] Lisinopril 20 mg [Zestril 20 MG] 10 mg PO DAILY 01/26/23 [History Confirmed 11/25/23] Metformin HCl 500 mg [Glucophage 500 MG] 500 mg PO BIDWM 01/26/23 [History Confirmed 11/25/23] Escitalopram Oxalate [Lexapro] 10 mg PO DAILY 03/05/23 [History Confirmed 11/25/23] Simvastatin 20Mg [Zocor 20Mg] 20 mg PO HS 09/22/23 [History Confirmed 11/25/23] Cephalexin Mh 500 mg [Keflex 500 mg] 250 mg PO DAILY 10/31/23 [History Confirmed 11/25/23] Amlodipine Besylate 5 mg [Norvasc 5 mg] 5 mg PO QAM 30 Days #30 tablet 11/03/23 [Rx Confirmed 11/25/23] Allergies/Adverse Reactions: Allergies Allergy/AdvReac Type Severity Reaction Status Date / Time niacin Allergy Intermediate Rash Verified 11/25/23 16:01 - Past Medical History Past Medical History: Yes Neurological History: No Pertinent History ENT History: No Pertinent History Cardiac History: High Cholesterol, Hypertension, Other Respiratory History: Lung Cancer Endocrine Medical History: Diabetes Type II Musculoskelatal History: No Pertinent History GI Medical History: No Pertinent History History: Other Pyscho-Social History: Anxiety Reproductive Disorders: No Pertinent History Comment: heart murmur- Dr Verma, 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 frequent UTIs - Past Surgical History Past Surgical History: Yes Neuro Surgical History: No Pertinent History Cardiac History: No Pertinent History Respiratory Surgery: No Pertinent History GI Surgical History: No Pertinent History Genitourinary Surgical Hx: No Pertinent History Musculskeletal Surgical Hx: No Pertinent History Female Surgical History: Hysterectomy Significant Family History: no pertinent family hx - Social History Smoking Status: Never smoker Exposure to second hand smoke: No Alcohol: None Drug Use: none - Social Determinants of Health Will the patient participate in the screening: Yes Do you worry about a steady place to live?: No Do you have any problems with any of the following?: No known problems In the past 12 months,have you had to go without utilities?: No Have you or anyone in your house had to go without enough: No Transportation Issues: No Has anyone in your support network made you feel unsafe?: No Does the patient want assistance with any of the above?: No - Physical Exam Vital Signs: Vital Signs - 24 hr Temp Pulse Resp BP BP Pulse Ox 11/26/23 00:00 98.1 F 92 H 16 127/89 96 11/25/23 23:16 95 11/25/23 20:36 98.4 F 94 H 16 137/65 97 11/25/23 19:25 97 11/25/23 19:00 161/73 95 11/25/23 18:30 154/113 94 L 11/25/23 18:00 155/104 11/25/23 17:30 175/73 96 11/25/23 17:23 149/84 95 11/25/23 16:50 95 11/25/23 16:40 96 11/25/23 16:31 93 L 11/25/23 16:00 159/78 95 11/25/23 15:47 96.7 F 97 H 103/71 97 General Appearance: no apparent distress, alert Neurologic Exam: alert, cooperative, normal mood/affect, sensation nml Eye Exam: PERRL/EOMI, eyes nml inspection Ears, Nose, Throat Exam: normal ENT inspection, TMs normal, pharynx normal, moist mucous membranes Neck Exam: normal inspection, non-tender, supple, full range of motion Respiratory Exam: normal breath sounds, lungs clear, No respiratory distress Cardiovascular Exam: regular rate/rhythm, normal heart sounds, normal peripheral pulses Gastrointestinal/Abdomen Exam: soft, normal bowel sounds, No tenderness, No mass Back Exam: normal inspection, normal range of motion, No CVA tenderness, No vertebral tenderness Extremity Exam: normal inspection, normal range of motion, pelvis stable Skin Exam: normal color, warm, dry, No rash Lymphatic Exam: No adenopathy Results - Labs Lab/Micro Results: Lab Results-Last 24 Hours 11/25/23 11/25/23 11/25/23 Range/Units 15:46 16:00 16:00 WBC 10.8 H (3.98-10.04) x10^3/uL RBC 4.18 (3.93-5.22) x10^6/uL Hgb 12.9 (11.2-15.7) g/dL Hct 36.2 (34.1-44.9) % MCV 86.6 (79.4-94.8) fL MCH 30.9 (25.6-32.2) pg MCHC 35.6 H (32.2-35.5) g/dL RDW 12.6 (11.7-14.4) % Plt Count 398 H (182-369) x10^3/uL MPV 8.7 L (9.4-12.3) fL Gran % 80.3 H (34.0-71.1) % Immature Gran % (Auto) 1.2 H (0.001-0.429) % Nucleat RBC Rel Count 0.0 (0.00-0.2) % Eos # (Auto) 0.10 (0.04-0.36) x10^3/uL Immature Gran # (Auto) 0.13 H (0.001-0.031) x10^3u/L Absolute Lymphs (auto) 0.77 L (1.18-3.74) x10^3/uL Absolute Monos (auto) 1.11 H (0.24-0.86) x10^3/uL Absolute Nucleated RBC 0.00 (0.00-0.012) x10^3u/L Lymphocytes % 7.1 L (19.3-51.7) % Monocytes % 10.3 (4.7-12.5) % Eosinophils % 0.9 (0.7-5.8) % Basophils % 0.2 (0.1-1.2) % Absolute Granulocytes 8.67 H (1.56-6.13) x10^3/uL Basophils # 0.02 (0.01-0.08) x10^3/uL Sodium 123 L (135-145) mmol/L Potassium 3.8 (3.5-5.1) mmol/L Chloride 88 L (98-107) mmol/L Carbon Dioxide 28 (22-30) mmol/L Anion Gap 10.8 (5-15) MEQ/L BUN 18 H (7-17) mg/dL Creatinine 0.60 (0.52-1.04) mg/dL Estimated GFR 86.8 ML/MIN Glucose 126 H (74-106) mg/dL POC Glucometer (74 to 106) mg/dL Lactic Acid 1.4 (0.4-2.0) Calcium 9.3 (8.4-10.2) mg/dL Magnesium 1.3 L (1.6-2.3) mg/dL Total Bilirubin 0.80 (0.2-1.3) mg/dL AST 39 H (14-36) U/L ALT 18 (0-35) U/L Alkaline Phosphatase 101 (38-126) U/L Creatine Kinase 69 (30-135) U/L Troponin I (0.000-0.033) ng/mL Serum Total Protein 6.6 (6.3-8.2) g/dL Albumin 3.6 (3.5-5.0) g/dL Urine Color (Yellow) Urine Appearance (Clear) Urine pH (4.6-8.0) Ur Specific [place] (1.005-1.030) Urine Protein (Negative) Urine Glucose (UA) (Negative) mg/dL Urine Ketones (Negative) Urine Blood (Negative) Urine Nitrite (Negative) Urine Bilirubin (Negative) Urine Urobilinogen (0.2) mg/dL Ur Leukocyte Esterase (Negative) U Hyaline Cast (Auto) (0-2) /LPF Urine Microscopic RBC (0-5) /HPF Urine Microscopic WBC (0-5) /HPF Ur Epithelial Cells (None Seen) /HPF Urine Bacteria (None Seen) /HPF Urine Culture Reflexed (NO) ABO Group Rh Factor Antibody Screen (NEGATIVE) 11/25/23 11/25/23 11/25/23 Range/Units 16:00 17:56 19:00 WBC (3.98-10.04) x10^3/uL RBC (3.93-5.22) x10^6/uL Hgb (11.2-15.7) g/dL Hct (34.1-44.9) % MCV (79.4-94.8) fL MCH (25.6-32.2) pg MCHC (32.2-35.5) g/dL RDW (11.7-14.4) % Plt Count (182-369) x10^3/uL MPV (9.4-12.3) fL Gran % (34.0-71.1) % Immature Gran % (Auto) (0.001-0.429) % Nucleat RBC Rel Count (0.00-0.2) % Eos # (Auto) (0.04-0.36) x10^3/uL Immature Gran # (Auto) (0.001-0.031) x10^3u/L Absolute Lymphs (auto) (1.18-3.74) x10^3/uL Absolute Monos (auto) (0.24-0.86) x10^3/uL Absolute Nucleated RBC (0.00-0.012) x10^3u/L Lymphocytes % (19.3-51.7) % Monocytes % (4.7-12.5) % Eosinophils % (0.7-5.8) % Basophils % (0.1-1.2) % Absolute Granulocytes (1.56-6.13) x10^3/uL Basophils # (0.01-0.08) x10^3/uL Sodium (135-145) mmol/L Potassium (3.5-5.1) mmol/L Chloride (98-107) mmol/L Carbon Dioxide (22-30) mmol/L Anion Gap (5-15) MEQ/L BUN (7-17) mg/dL Creatinine (0.52-1.04) mg/dL Estimated GFR ML/MIN Glucose (74-106) mg/dL POC Glucometer (74 to 106) mg/dL Lactic Acid (0.4-2.0) Calcium (8.4-10.2) mg/dL Magnesium (1.6-2.3) mg/dL Total Bilirubin (0.2-1.3) mg/dL AST (14-36) U/L ALT (0-35) U/L Alkaline Phosphatase (38-126) U/L Creatine Kinase (30-135) U/L Troponin I < 0.012 < 0.012 (0.000-0.033) ng/mL Serum Total Protein (6.3-8.2) g/dL Albumin (3.5-5.0) g/dL Urine Color Yellow (Yellow) Urine Appearance Clear (Clear) Urine pH 6.5 (4.6-8.0) Ur Specific [place] 1.015 (1.005-1.030) Urine Protein Negative (Negative) Urine Glucose (UA) Negative (Negative) mg/dL Urine Ketones Trace A (Negative) Urine Blood Negative (Negative) Urine Nitrite Negative (Negative) Urine Bilirubin Negative (Negative) Urine Urobilinogen 1.0 A (0.2) mg/dL Ur Leukocyte Esterase Negative (Negative) U Hyaline Cast (Auto) NONE SEEN (0-2) /LPF Urine Microscopic RBC 0-2 (0-5) /HPF Urine Microscopic WBC 0-2 (0-5) /HPF Ur Epithelial Cells None Seen (None Seen) /HPF Urine Bacteria None Seen (None Seen) /HPF Urine Culture Reflexed NO (NO) ABO Group Rh Factor Antibody Screen (NEGATIVE) 11/25/23 11/25/23 Range/Units 19:00 21:25 WBC (3.98-10.04) x10^3/uL RBC (3.93-5.22) x10^6/uL Hgb (11.2-15.7) g/dL Hct (34.1-44.9) % MCV (79.4-94.8) fL MCH (25.6-32.2) pg MCHC (32.2-35.5) g/dL RDW (11.7-14.4) % Plt Count (182-369) x10^3/uL MPV (9.4-12.3) fL Gran % (34.0-71.1) % Immature Gran % (Auto) (0.001-0.429) % Nucleat RBC Rel Count (0.00-0.2) % Eos # (Auto) (0.04-0.36) x10^3/uL Immature Gran # (Auto) (0.001-0.031) x10^3u/L Absolute Lymphs (auto) (1.18-3.74) x10^3/uL Absolute Monos (auto) (0.24-0.86) x10^3/uL Absolute Nucleated RBC (0.00-0.012) x10^3u/L Lymphocytes % (19.3-51.7) % Monocytes % (4.7-12.5) % Eosinophils % (0.7-5.8) % Basophils % (0.1-1.2) % Absolute Granulocytes (1.56-6.13) x10^3/uL Basophils # (0.01-0.08) x10^3/uL Sodium (135-145) mmol/L Potassium (3.5-5.1) mmol/L Chloride (98-107) mmol/L Carbon Dioxide (22-30) mmol/L Anion Gap (5-15) MEQ/L BUN (7-17) mg/dL Creatinine (0.52-1.04) mg/dL Estimated GFR ML/MIN Glucose (74-106) mg/dL POC Glucometer 147 H (74 to 106) mg/dL Lactic Acid (0.4-2.0) Calcium (8.4-10.2) mg/dL Magnesium (1.6-2.3) mg/dL Total Bilirubin (0.2-1.3) mg/dL AST (14-36) U/L ALT (0-35) U/L Alkaline Phosphatase (38-126) U/L Creatine Kinase (30-135) U/L Troponin I (0.000-0.033) ng/mL Serum Total Protein (6.3-8.2) g/dL Albumin (3.5-5.0) g/dL Urine Color (Yellow) Urine Appearance (Clear) Urine pH (4.6-8.0) Ur Specific [place] (1.005-1.030) Urine Protein (Negative) Urine Glucose (UA) (Negative) mg/dL Urine Ketones (Negative) Urine Blood (Negative) Urine Nitrite (Negative) Urine Bilirubin (Negative) Urine Urobilinogen (0.2) mg/dL Ur Leukocyte Esterase (Negative) U Hyaline Cast (Auto) (0-2) /LPF Urine Microscopic RBC (0-5) /HPF Urine Microscopic WBC (0-5) /HPF Ur Epithelial Cells (None Seen) /HPF Urine Bacteria (None Seen) /HPF Urine Culture Reflexed (NO) ABO Group O Rh Factor POSITIVE Antibody Screen NEGATIVE (NEGATIVE) Accuchecks Date 11/25/23 Time 21:00 - Radiology Impressions Radiology Exams & Impressions: Radiology Procedures Category Date Time Status CERVICAL SPINE WO CONTRAST [CT] Stat Exams 11/25/23 16:39 Taken CHEST 1 VIEW (PORTABLE) Stat Exams 11/25/23 15:47 Completed HEAD WITHOUT CONTRAST [CT] Stat Exams 11/25/23 16:38 Taken HIP UNI (2V) INCL PEL IF DONE Stat Exams 11/25/23 15:47 Completed PELVIS WITHOUT CONTRAST [CT] Stat Exams 11/25/23 16:39 Taken Assessment/Plan (1) Hip fracture Current Visit: Yes Status: Acute Assessment & Plan: ASSESSMENT 1. Right Hip Fractures secondary to Ground Level Fall 2. Altered Mental Status 3. Hyponatremia 4. Hypomagnesemia 5. Hypertension 6. Hyperlipidemia 7. Type II Diabetes Mellitus 8. Small Cell Lung Cancer s/p XRT 9. Unspecified Skin Cancer PLAN 1. Continue fluids 2. Patient has not slept in days, so will try ambien - hopefully will result in less delirium and confusion; CT head and UA unremarkable 3. Repeat labs now 4. Replete electrolytes as needed 5. Ortho is aware of patient SCDs The entirety of this encounter was done via telemedicine with audio and visual. Consent was obtained from the daughter for a telemedicine encounter given patient's altered mentation. Adi Lin MD Pulmonary and Critical Care Medicine Code(s): S72.009A - FRACTURE OF UNSP PART OF NECK OF UNSP FEMUR, INIT Telemedicine Encounter - Telemedicine Encounter Telemedicine Encounter: The entirety of this encounter was performed via Telemedicine"
[2023-11-26] MEDS: Ambien 5 MG Tablet PO PRN ×2 (00:35→21:29)
[2023-11-26 04:17] LABS: ALBUMIN 3.2 g/dL (3.5-5.0); ANION GAP 8.8 MEQ/L (5-15); BILIRUBIN,TOTAL 0.7 mg/dL (0.2-1.3); Calcium 8.8 mg/dL (8.4-10.2); Creatinine 1 0.45 mg/dL (0.52-1.04); EST GLOMERULAR FILTRATION RATE 93.1 ML/MIN; MAGNESIUM 1.7 mg/dL (1.6-2.3); Potassium 3.9 mmol/L (3.5-5.1); Total Protein 5.8 g/dL (6.3-8.2)
--- NOTE | 2023-11-26 05:51 | PCM.NOTE ---
Date and Time: 11/26/23 0544 Subjective Assessment: Ms. Campuzano is an 88 year-old female with HTN, HLD, DM2, and SCLC s/p XRT who presents with a hip fracture after a GLF and altered mental status. She had a ground level fall last Wednesday (tripped on carpet and got tangled up with her walker), and subsquently had groin and back pain. She was managed with OTC NASAIDs and muscle relaxers by her PCP, but with continued pain, she sought medical attention at [place] today. Arrival laboratory data was remarkable for a sodium of 123, and imaging revealed a displaced right femur subcapital acute fracture. CXR, CT head and UA were unremarkable. Dr. Peck orthopedic surgeon on-call, reviewed history, workup and recommended admission to hospitalist service, type screen and needs to optimize sodium before patient can be taken to the OR. 11/25: Met with patient and family bedside. Endorses pain with ambulation. Discussed labs, hyponatremia is improving. Plan for surgical intervention today. Denies fever,cough, sob, cp, abdominal pain, WEBBER, dizziness, N/V/D. - Review of Systems Constitutional: Weakness Eyes: No Symptoms Ears, Nose, & Throat: No Symptoms Respiratory: No Symptoms Cardiac: No Symptoms Abdominal/Gastrointestinal: No Symptoms Genitourinary Symptoms: No Symptoms Musculoskeletal: Joint Pain Skin: No Symptoms Neurological: No Symptoms Psychological: No Symptoms Endocrine: No Symptoms Hematologic/Lymphatic: No Symptoms Immunological/Allergic: No Symptoms Objective Exam General Appearance: no apparent distress Neurologic Exam: alert, oriented x 3, cooperative Skin Exam: normal color Eye Exam: PERRL Ears, Nose, Throat Exam: normal ENT inspection Neck Exam: normal inspection, full range of motion (RLE) Respiratory Exam: normal breath sounds, lungs clear Cardiovascular Exam: regular rate/rhythm, normal heart sounds Gastrointestinal/Abdomen Exam: soft, normal bowel sounds Extremity Exam: limited range of motion Back Exam: normal inspection, point tenderness Rectal Exam: deferred Objective Data Vital Signs: Vital Signs - 24 hr Temp Pulse Resp BP BP Pulse Ox 11/26/23 00:00 98.1 F 92 H 16 127/89 96 11/25/23 23:16 95 11/25/23 20:36 98.4 F 94 H 16 137/65 97 11/25/23 19:25 97 11/25/23 19:00 161/73 95 11/25/23 18:30 154/113 94 L 11/25/23 18:00 155/104 11/25/23 17:30 175/73 96 11/25/23 17:23 149/84 95 11/25/23 16:50 95 11/25/23 16:40 96 11/25/23 16:31 93 L 11/25/23 16:00 159/78 95 11/25/23 15:47 96.7 F 97 H 103/71 97 Pain Assessment - Last Documented Pain Intensity 3 Intake and Output: Intake & Output 11/23/23 11/24/23 11/25/23 11/26/23 11:59 11:59 11:59 11:59 Output Total 975 Balance -975 Weight 63 kg Lab Results: Lab Results-Last 24 Hours 11/25/23 11/25/23 11/25/23 Range/Units 15:46 16:00 16:00 WBC 10.8 H (3.98-10.04) x10^3/uL RBC 4.18 (3.93-5.22) x10^6/uL Hgb 12.9 (11.2-15.7) g/dL Hct 36.2 (34.1-44.9) % MCV 86.6 (79.4-94.8) fL MCH 30.9 (25.6-32.2) pg MCHC 35.6 H (32.2-35.5) g/dL RDW 12.6 (11.7-14.4) % Plt Count 398 H (182-369) x10^3/uL MPV 8.7 L (9.4-12.3) fL Gran % 80.3 H (34.0-71.1) % Immature Gran % (Auto) 1.2 H (0.001-0.429) % Nucleat RBC Rel Count 0.0 (0.00-0.2) % Eos # (Auto) 0.10 (0.04-0.36) x10^3/uL Immature Gran # (Auto) 0.13 H (0.001-0.031) x10^3u/L Absolute Lymphs (auto) 0.77 L (1.18-3.74) x10^3/uL Absolute Monos (auto) 1.11 H (0.24-0.86) x10^3/uL Absolute Nucleated RBC 0.00 (0.00-0.012) x10^3u/L Lymphocytes % 7.1 L (19.3-51.7) % Monocytes % 10.3 (4.7-12.5) % Eosinophils % 0.9 (0.7-5.8) % Basophils % 0.2 (0.1-1.2) % Absolute Granulocytes 8.67 H (1.56-6.13) x10^3/uL Basophils # 0.02 (0.01-0.08) x10^3/uL Sodium 123 L (135-145) mmol/L Potassium 3.8 (3.5-5.1) mmol/L Chloride 88 L (98-107) mmol/L Carbon Dioxide 28 (22-30) mmol/L Anion Gap 10.8 (5-15) MEQ/L BUN 18 H (7-17) mg/dL Creatinine 0.60 (0.52-1.04) mg/dL Estimated GFR 86.8 ML/MIN Glucose 126 H (74-106) mg/dL POC Glucometer (74 to 106) mg/dL Lactic Acid 1.4 (0.4-2.0) Calcium 9.3 (8.4-10.2) mg/dL Magnesium 1.3 L (1.6-2.3) mg/dL Total Bilirubin 0.80 (0.2-1.3) mg/dL AST 39 H (14-36) U/L ALT 18 (0-35) U/L Alkaline Phosphatase 101 (38-126) U/L Creatine Kinase 69 (30-135) U/L Troponin I (0.000-0.033) ng/mL Serum Total Protein 6.6 (6.3-8.2) g/dL Albumin 3.6 (3.5-5.0) g/dL Urine Color (Yellow) Urine Appearance (Clear) Urine pH (4.6-8.0) Ur Specific [place] (1.005-1.030) Urine Protein (Negative) Urine Glucose (UA) (Negative) mg/dL Urine Ketones (Negative) Urine Blood (Negative) Urine Nitrite (Negative) Urine Bilirubin (Negative) Urine Urobilinogen (0.2) mg/dL Ur Leukocyte Esterase (Negative) U Hyaline Cast (Auto) (0-2) /LPF Urine Microscopic RBC (0-5) /HPF Urine Microscopic WBC (0-5) /HPF Ur Epithelial Cells (None Seen) /HPF Urine Bacteria (None Seen) /HPF Urine Culture Reflexed (NO) ABO Group Rh Factor Antibody Screen (NEGATIVE) 11/25/23 11/25/23 11/25/23 Range/Units 16:00 17:56 19:00 WBC (3.98-10.04) x10^3/uL RBC (3.93-5.22) x10^6/uL Hgb (11.2-15.7) g/dL Hct (34.1-44.9) % MCV (79.4-94.8) fL MCH (25.6-32.2) pg MCHC (32.2-35.5) g/dL RDW (11.7-14.4) % Plt Count (182-369) x10^3/uL MPV (9.4-12.3) fL Gran % (34.0-71.1) % Immature Gran % (Auto) (0.001-0.429) % Nucleat RBC Rel Count (0.00-0.2) % Eos # (Auto) (0.04-0.36) x10^3/uL Immature Gran # (Auto) (0.001-0.031) x10^3u/L Absolute Lymphs (auto) (1.18-3.74) x10^3/uL Absolute Monos (auto) (0.24-0.86) x10^3/uL Absolute Nucleated RBC (0.00-0.012) x10^3u/L Lymphocytes % (19.3-51.7) % Monocytes % (4.7-12.5) % Eosinophils % (0.7-5.8) % Basophils % (0.1-1.2) % Absolute Granulocytes (1.56-6.13) x10^3/uL Basophils # (0.01-0.08) x10^3/uL Sodium (135-145) mmol/L Potassium (3.5-5.1) mmol/L Chloride (98-107) mmol/L Carbon Dioxide (22-30) mmol/L Anion Gap (5-15) MEQ/L BUN (7-17) mg/dL Creatinine (0.52-1.04) mg/dL Estimated GFR ML/MIN Glucose (74-106) mg/dL POC Glucometer (74 to 106) mg/dL Lactic Acid (0.4-2.0) Calcium (8.4-10.2) mg/dL Magnesium (1.6-2.3) mg/dL Total Bilirubin (0.2-1.3) mg/dL AST (14-36) U/L ALT (0-35) U/L Alkaline Phosphatase (38-126) U/L Creatine Kinase (30-135) U/L Troponin I < 0.012 < 0.012 (0.000-0.033) ng/mL Serum Total Protein (6.3-8.2) g/dL Albumin (3.5-5.0) g/dL Urine Color Yellow (Yellow) Urine Appearance Clear (Clear) Urine pH 6.5 (4.6-8.0) Ur Specific [place] 1.015 (1.005-1.030) Urine Protein Negative (Negative) Urine Glucose (UA) Negative (Negative) mg/dL Urine Ketones Trace A (Negative) Urine Blood Negative (Negative) Urine Nitrite Negative (Negative) Urine Bilirubin Negative (Negative) Urine Urobilinogen 1.0 A (0.2) mg/dL Ur Leukocyte Esterase Negative (Negative) U Hyaline Cast (Auto) NONE SEEN (0-2) /LPF Urine Microscopic RBC 0-2 (0-5) /HPF Urine Microscopic WBC 0-2 (0-5) /HPF Ur Epithelial Cells None Seen (None Seen) /HPF Urine Bacteria None Seen (None Seen) /HPF Urine Culture Reflexed NO (NO) ABO Group Rh Factor Antibody Screen (NEGATIVE) 11/25/23 11/25/23 11/26/23 Range/Units 19:00 21:25 00:00 WBC (3.98-10.04) x10^3/uL RBC (3.93-5.22) x10^6/uL Hgb (11.2-15.7) g/dL Hct (34.1-44.9) % MCV (79.4-94.8) fL MCH (25.6-32.2) pg MCHC (32.2-35.5) g/dL RDW (11.7-14.4) % Plt Count (182-369) x10^3/uL MPV (9.4-12.3) fL Gran % (34.0-71.1) % Immature Gran % (Auto) (0.001-0.429) % Nucleat RBC Rel Count (0.00-0.2) % Eos # (Auto) (0.04-0.36) x10^3/uL Immature Gran # (Auto) (0.001-0.031) x10^3u/L Absolute Lymphs (auto) (1.18-3.74) x10^3/uL Absolute Monos (auto) (0.24-0.86) x10^3/uL Absolute Nucleated RBC (0.00-0.012) x10^3u/L Lymphocytes % (19.3-51.7) % Monocytes % (4.7-12.5) % Eosinophils % (0.7-5.8) % Basophils % (0.1-1.2) % Absolute Granulocytes (1.56-6.13) x10^3/uL Basophils # (0.01-0.08) x10^3/uL Sodium (135-145) mmol/L Potassium (3.5-5.1) mmol/L Chloride (98-107) mmol/L Carbon Dioxide (22-30) mmol/L Anion Gap (5-15) MEQ/L BUN (7-17) mg/dL Creatinine (0.52-1.04) mg/dL Estimated GFR ML/MIN Glucose (74-106) mg/dL POC Glucometer 147 H (74 to 106) mg/dL Lactic Acid (0.4-2.0) Calcium (8.4-10.2) mg/dL Magnesium (1.6-2.3) mg/dL Total Bilirubin (0.2-1.3) mg/dL AST (14-36) U/L ALT (0-35) U/L Alkaline Phosphatase (38-126) U/L Creatine Kinase (30-135) U/L Troponin I < 0.012 (0.000-0.033) ng/mL Serum Total Protein (6.3-8.2) g/dL Albumin (3.5-5.0) g/dL Urine Color (Yellow) Urine Appearance (Clear) Urine pH (4.6-8.0) Ur Specific [place] (1.005-1.030) Urine Protein (Negative) Urine Glucose (UA) (Negative) mg/dL Urine Ketones (Negative) Urine Blood (Negative) Urine Nitrite (Negative) Urine Bilirubin (Negative) Urine Urobilinogen (0.2) mg/dL Ur Leukocyte Esterase (Negative) U Hyaline Cast (Auto) (0-2) /LPF Urine Microscopic RBC (0-5) /HPF Urine Microscopic WBC (0-5) /HPF Ur Epithelial Cells (None Seen) /HPF Urine Bacteria (None Seen) /HPF Urine Culture Reflexed (NO) ABO Group O Rh Factor POSITIVE Antibody Screen NEGATIVE (NEGATIVE) 11/26/23 Range/Units 00:21 WBC (3.98-10.04) x10^3/uL RBC (3.93-5.22) x10^6/uL Hgb (11.2-15.7) g/dL Hct (34.1-44.9) % MCV (79.4-94.8) fL MCH (25.6-32.2) pg MCHC (32.2-35.5) g/dL RDW (11.7-14.4) % Plt Count (182-369) x10^3/uL MPV (9.4-12.3) fL Gran % (34.0-71.1) % Immature Gran % (Auto) (0.001-0.429) % Nucleat RBC Rel Count (0.00-0.2) % Eos # (Auto) (0.04-0.36) x10^3/uL Immature Gran # (Auto) (0.001-0.031) x10^3u/L Absolute Lymphs (auto) (1.18-3.74) x10^3/uL Absolute Monos (auto) (0.24-0.86) x10^3/uL Absolute Nucleated RBC (0.00-0.012) x10^3u/L Lymphocytes % (19.3-51.7) % Monocytes % (4.7-12.5) % Eosinophils % (0.7-5.8) % Basophils % (0.1-1.2) % Absolute Granulocytes (1.56-6.13) x10^3/uL Basophils # (0.01-0.08) x10^3/uL Sodium 125 L (135-145) mmol/L Potassium 3.9 (3.5-5.1) mmol/L Chloride 95 L (98-107) mmol/L Carbon Dioxide 26 (22-30) mmol/L Anion Gap 8.8 (5-15) MEQ/L BUN 12 (7-17) mg/dL Creatinine 0.45 L (0.52-1.04) mg/dL Estimated GFR 93.1 ML/MIN Glucose 108 H (74-106) mg/dL POC Glucometer (74 to 106) mg/dL Lactic Acid (0.4-2.0) Calcium 8.8 (8.4-10.2) mg/dL Magnesium 1.7 (1.6-2.3) mg/dL Total Bilirubin 0.70 (0.2-1.3) mg/dL AST 42 H (14-36) U/L ALT 18 (0-35) U/L Alkaline Phosphatase 98 (38-126) U/L Creatine Kinase (30-135) U/L Troponin I (0.000-0.033) ng/mL Serum Total Protein 5.8 L (6.3-8.2) g/dL Albumin 3.2 L (3.5-5.0) g/dL Urine Color (Yellow) Urine Appearance (Clear) Urine pH (4.6-8.0) Ur Specific [place] (1.005-1.030) Urine Protein (Negative) Urine Glucose (UA) (Negative) mg/dL Urine Ketones (Negative) Urine Blood (Negative) Urine Nitrite (Negative) Urine Bilirubin (Negative) Urine Urobilinogen (0.2) mg/dL Ur Leukocyte Esterase (Negative) U Hyaline Cast (Auto) (0-2) /LPF Urine Microscopic RBC (0-5) /HPF Urine Microscopic WBC (0-5) /HPF Ur Epithelial Cells (None Seen) /HPF Urine Bacteria (None Seen) /HPF Urine Culture Reflexed (NO) ABO Group Rh Factor Antibody Screen (NEGATIVE) Radiology Exams: Radiology Procedures Category Date Time Status CERVICAL SPINE WO CONTRAST [CT] Stat Exams 11/25/23 16:39 Taken CHEST 1 VIEW (PORTABLE) Stat Exams 11/25/23 15:47 Completed HEAD WITHOUT CONTRAST [CT] Stat Exams 11/25/23 16:38 Taken HIP UNI (2V) INCL PEL IF DONE Stat Exams 11/25/23 15:47 Completed PELVIS WITHOUT CONTRAST [CT] Stat Exams 11/25/23 16:39 Taken Assessment/Plan (1) Hyponatremia Current Visit: Yes Status: Acute Assessment & Plan: -Improving with IVF, still at 125, will continue IVF -send for serum osmo -TSH, lipid, urine sodium, urine osmo Code(s): E87.1 - HYPO-OSMOLALITY AND HYPONATREMIA (2) Hip fracture Current Visit: Yes Status: Acute Assessment & Plan: -Ortho consulted and following, plan for surgical intervention today -will need rehab on discharge Code(s): S72.009A - FRACTURE OF UNSP PART OF NECK OF UNSP FEMUR, INIT (3) Small cell lung cancer Current Visit: Yes Status: Acute Assessment & Plan: -noted, s/p XRT Code(s): C34.90 - MALIGNANT NEOPLASM OF UNSP PART OF UNSP BRONCHUS OR LUNG (4) Acute metabolic encephalopathy Current Visit: No Status: Acute Assessment & Plan: -CT head negative -UA negative -CXR negative 11/25: -resolved Code(s): G93.41 - METABOLIC ENCEPHALOPATHY (5) Hypertension Current Visit: No Status: Acute Assessment & Plan: -stable, continue home meds Code(s): I10 - ESSENTIAL (PRIMARY) HYPERTENSION (6) Hypomagnesemia Current Visit: No Status: Acute Assessment & Plan: -resolved at 1.7 Code(s): E83.42 - HYPOMAGNESEMIA (7) Hyperlipidemia Current Visit: No Status: Chronic Assessment & Plan: -continue statin Code(s): E78.5 - HYPERLIPIDEMIA, UNSPECIFIED (8) Type II diabetes mellitus, well controlled Current Visit: No Status: Chronic Assessment & Plan: -hold metformin -ssi -A1c -ADA diet VTE: SCD Dispo: pending surgical consult with ortho Code status: Full Code(s): E11.9 - TYPE 2 DIABETES MELLITUS WITHOUT COMPLICATIONS
[2023-11-26] MEDS ORDERED: HUMALOG SQ PRN (05:55)
[2023-11-26 06:22] LABS: Absolute Neutrophil Ct (ANC) 7.91 x10^3/uL (1.56-6.13); BASOPHIL % 0.3 % (0.1-1.2); Basophil (Absolute #) 0.03 x10^3/uL (0.01-0.08); Eosinophil % 1.4 % (0.7-5.8); Eosinophil (Absolute #) 0.15 x10^3/uL (0.04-0.36); Hemoglobin 11.4 g/dL (11.2-15.7); IMMATURE GRAN # 0.15 x10^3u/L (0.001-0.031); IMMATURE GRAN % 1.4 % (0.001-0.429); Lymphocytes % 8.6 % (19.3-51.7); Mean Cell Volume 88.2 fL (79.4-94.8); Mean Corpuscular Hemoglobin 30.5 pg (25.6-32.2); Mean Corpuscular Hgb Concent. 34.5 g/dL (32.2-35.5); Monocytes % 12.5 % (4.7-12.5); Neutrophil % 75.8 % (34.0-71.1); Platelet Count 409 x10^3/uL (182-369); Red Blood Count 3.74 x10^6/uL (3.93-5.22); Red Cell Distribution Width 12.7 % (11.7-14.4); White Blood Count 10.4 x10^3/uL (3.98-10.04)
[2023-11-26] MEDS ORDERED: Glucophage 500 MG PO SCH (08:00)
--- NOTE | 2023-11-26 08:37 | XRAY ---
Indication: Confusion. Status post fall. Multiple contiguous axial images obtained through the head without contrast. Comparison: October 31, 2023 Again age-appropriate global atrophy, mild periventricular degenerative micro-ischemia bilaterally, and remote lacunar infarcts both basal ganglia/left caudate head. No acute intracranial hemorrhage, abnormal extra-axial fluid collection, or mass effect. Fourth ventricle is midline without hydrocephalus. Bony calvarium intact. Visualized paranasal sinuses and mastoid air cells are clear. Impression: Stable nonacute senile brain with remote lacunar infarcts.
--- NOTE | 2023-11-26 08:41 | XRAY ---
Indication: Status post fall. Multiple contiguous axial images obtained through the cervical spine. Sagittal and coronal reformatted images obtained. Comparison: October 31, 2023 Osseous structures remain demineralized. Axial images negative for acute fracture, suspicious bony lesions, or spinal canal stenosis. Stable minimal/mild C4-C7 degenerative endplate spurring, tiny C4-C5 degenerative vacuum disc phenomena, and mild/moderate multilevel bilateral degenerative facet hypertrophy. Sagittal and coronal reformatted images again demonstrates lordotic straightening, positional versus paraspinal spasm. Stable C4-C7 disc space narrowing. No acute compression fracture, subluxation, or jumped facet. Normal appearing craniocervical junction. Visualized noncontrasted soft tissues again demonstrates mild bilateral carotid calcifications and thyroid atrophy. Lung apices clear. Impression: 1. Stable cervical lordotic straightening, positional versus paraspinal spasm. Continued negative for acute fracture. 2. Again chronic findings including osteopenia, multilevel degenerative changes, and bilateral carotid calcifications.
--- NOTE | 2023-11-26 08:45 | XRAY ---
Indication: Hip pain following fall. Multiple contiguous axial images obtained through the pelvis with special attention to the osseous structures. Sagittal and coronal reformatted images obtained. Comparison: October 31, 2023 Osseous structures remain demineralized. Proximal right femur demonstrates new displaced and mildly angulated subcapital fracture. Callus formation present favoring healing process. Additional tiny curvilinear nondisplaced femur head fracture anteriorly and small right effusion. Left hip intact again with weightbearing joint space loss. Grossly stable degenerative changes visualized lower lumbar spine. Visualized noncontrasted soft tissues again demonstrates moderate scattered aortoiliac calcifications, scattered colonic diverticulosis, and small fatty right inguinal hernia. Impression: 1. New fractures proximal right femur as detailed. The subcapital fracture demonstrates healing callus formation. 2. Again chronic findings osteopenia, arteriosclerotic disease, colonic diverticulosis, and fatty right inguinal hernia.
[2023-11-26] MEDS ORDERED: CEFAZOLIN 2 GM/100 ML NaCl 2 GM/100 ML IVPB IV SCH (10:00)
[2023-11-26] MEDS ORDERED: TRANEXAMIC 1,000 MG/100ML-NACL 1,000 MG/100 ML PIGGYBACK IV SCH (10:00)
[2023-11-26] MEDS ORDERED: BABY ASPIRIN 81 MG CHEW PO SCH (10:00)
[2023-11-26] MEDS ORDERED: Zestril 20 MG PO SCH (10:00)
[2023-11-26 10:06] LABS: ALBUMIN 3.1 g/dL (3.5-5.0); ANION GAP 8.4 MEQ/L (5-15); BILIRUBIN,TOTAL 0.7 mg/dL (0.2-1.3); Calcium 8.4 mg/dL (8.4-10.2); Creatinine 1 0.45 mg/dL (0.52-1.04); EST GLOMERULAR FILTRATION RATE 93.1 ML/MIN; MAGNESIUM 1.7 mg/dL (1.6-2.3); Potassium 3.5 mmol/L (3.5-5.1); TSH, 3RD Generation 0.86 mIU/L (0.470-4.680); Total Protein 5.8 g/dL (6.3-8.2)
[2023-11-26] MEDS ORDERED: VANCOCIN INJECTION IV ONE (10:46)
[2023-11-26] MEDS ORDERED: Lactated Ringers 1,000 ML IV ONE (10:46)
[2023-11-26] MEDS ORDERED: Epinephrine Preservative Free 1 MG/ML ONE (11:54)
[2023-11-26] MEDS ORDERED: DIPRIVAN 200 MG/20 ML IV ONE (12:17)
[2023-11-26] MEDS ORDERED: Sodium Chloride 0.9% 1000 ML 1,000 ML ONE (12:27)
[2023-11-26] MEDS ORDERED: PHENYLEPHRINE HCL ONE (12:33)
[2023-11-26] MEDS ORDERED: ROBINUL ONE (12:52)
[2023-11-26] MEDS ORDERED: PITRESSIN 20 UNITS ONE (13:03)
[2023-11-26] MEDS ORDERED: Naropin 0.5% 30 ML VIAL ONE (13:29)
[2023-11-26] MEDS ORDERED: CEFAZOLIN 2 GM-D5W BAG** 2 GM/50 ML ML IV ONE (13:47)
--- NOTE | 2023-11-26 14:40 | XRAY ---
Indication: Follow-up surgery. Comparison: One day earlier. AP/crosstable lateral right hip demonstrates interval total hip arthroplasty with intact bipolar prosthesis and postsurgical soft tissue changes. Incidental osteopenia and minimal femoral artery calcifications. No other bony, articular, or soft tissue abnormalities.
[2023-11-26] MEDS: ECOTRIN 81 MG PO SCH (16:19)
[2023-11-26] MEDS: NORVASC 5 MG PO SCH (16:19)
[2023-11-26] MEDS: Lexapro PO SCH (16:19)
[2023-11-26] MEDS: Zestril 10 MG PO SCH (16:19)
[2023-11-26] MEDS ORDERED: NORCO 5/325 MG PO PRN (16:59)
[2023-11-26] MEDS ORDERED: Hydromorphone 1 mg/ml Injection IV PRN (17:08)
[2023-11-26] MEDS: Sodium Chloride 0.9% 1000 ML 1,000 ML IV SCH (20:47)
[2023-11-26] MEDS: KEFZOL 1 GM/50 ML PREMIX** 1 GM/50 ML IVPB IV SCH (21:27)
[2023-11-26] MEDS: TYLENOL EXTRA STRENGTH 500 MG PO PRN (21:27)
[2023-11-26] MEDS: ZOCOR 20MG PO SCH (21:29)
--- NOTE | 2023-11-27 05:25 | PCM.NOTE ---
Date and Time: 11/27/23 0525 Subjective Assessment: Ms. Campuzano is an 88 year-old female with HTN, HLD, DM2, and SCLC s/p XRT who presents with a hip fracture after a GLF and altered mental status. She had a ground level fall last Wednesday (tripped on carpet and got tangled up with her walker), and subsquently had groin and back pain. She was managed with OTC NASAIDs and muscle relaxers by her PCP, but with continued pain, she sought medical attention at [facility] today. Arrival laboratory data was remarkable for a sodium of 123, and imaging revealed a displaced right femur subcapital acute fracture. CXR, CT head and UA were unremarkable. Dr. Peck orthopedic surgeon on-call, reviewed history, workup and recommended admission to hospitalist service, type screen and needs to optimize sodium before patient can be taken to the OR. 11/25: Met with patient and family bedside. Endorses pain with ambulation. Discussed labs, hyponatremia is improving. Plan for surgical intervention today. Denies fever,cough, sob, cp, abdominal pain, WEBBER, dizziness, N/V/D. 11/26: Met with patient and family at bedside. Patient had rough night, did not sleep, had some confusion. During interview she is alert and orientated. Daughter states she has not been sleeping well lately. POD#1 partial right hip replacement. Discussed case with PT, patient did well today. Pain has improved, although she does experience some pain with ambulation. Plan for trazadone tonight to aid with sleep. Sodium has improved - continue IVF. Plan for rehab on discharge. - Review of Systems Constitutional: No Symptoms Eyes: No Symptoms Ears, Nose, & Throat: No Symptoms Respiratory: No Symptoms Cardiac: No Symptoms Abdominal/Gastrointestinal: No Symptoms Genitourinary Symptoms: No Symptoms Musculoskeletal: Joint Pain (right hip) Skin: No Symptoms, Other (surgical wound right hip covered CDI) Neurological: Other (confusion ) Psychological: No Symptoms Endocrine: No Symptoms Hematologic/Lymphatic: No Symptoms Immunological/Allergic: No Symptoms Objective Exam General Appearance: no apparent distress Neurologic Exam: alert, oriented x 3, cooperative, confusion Skin Exam: normal color Eye Exam: PERRL Ears, Nose, Throat Exam: normal ENT inspection Neck Exam: normal inspection Respiratory Exam: normal breath sounds, lungs clear Cardiovascular Exam: regular rate/rhythm, normal heart sounds Gastrointestinal/Abdomen Exam: soft, normal bowel sounds Extremity Exam: limited range of motion (right hip) Back Exam: normal inspection Pelvic Exam: deferred Rectal Exam: deferred Objective Data Vital Signs: Vital Signs - 24 hr Temp Pulse Resp BP Pulse Ox 11/27/23 04:30 97.8 F 101 H 20 180/87 95 11/26/23 23:00 93 L 11/26/23 20:00 98.2 F 99 H 20 136/68 93 L 11/26/23 15:19 97.6 F 86 16 146/63 93 L 11/26/23 11:54 98.0 F 94 H 16 175/77 95 11/26/23 10:18 97.7 F 87 16 145/67 91 L 11/26/23 07:00 97.7 F 87 16 145/67 91 L Pain Assessment - Last Documented Pain Intensity 0 Pain Scale Used FLACC Intake and Output: Intake & Output 11/24/23 11/25/23 11/26/23 11/27/23 11:59 11:59 11:59 11:59 Intake Total 0 4045 Output Total 1675 985 Balance -1675 3060 Weight 63 kg Lab Results: Lab Results-Last 24 Hours 11/26/23 11/26/23 11/26/23 Range/Units 00:21 00:45 07:44 WBC 10.4 H (3.98-10.04) x10^3/uL RBC 3.74 L (3.93-5.22) x10^6/uL Hgb 11.4 (11.2-15.7) g/dL Hct 33.0 L (34.1-44.9) % MCV 88.2 (79.4-94.8) fL MCH 30.5 (25.6-32.2) pg MCHC 34.5 (32.2-35.5) g/dL RDW 12.7 (11.7-14.4) % Plt Count 409 H (182-369) x10^3/uL MPV 9.0 L (9.4-12.3) fL Gran % 75.8 H (34.0-71.1) % Immature Gran % (Auto) 1.4 H (0.001-0.429) % Nucleat RBC Rel Count 0.0 (0.00-0.2) % Eos # (Auto) 0.15 (0.04-0.36) x10^3/uL Immature Gran # (Auto) 0.15 H (0.001-0.031) x10^3u/L Absolute Lymphs (auto) 0.90 L (1.18-3.74) x10^3/uL Absolute Monos (auto) 1.30 H (0.24-0.86) x10^3/uL Absolute Nucleated RBC 0.00 (0.00-0.012) x10^3u/L Lymphocytes % 8.6 L (19.3-51.7) % Monocytes % 12.5 (4.7-12.5) % Eosinophils % 1.4 (0.7-5.8) % Basophils % 0.3 (0.1-1.2) % Absolute Granulocytes 7.91 H (1.56-6.13) x10^3/uL Basophils # 0.03 (0.01-0.08) x10^3/uL Sodium (135-145) mmol/L Potassium (3.5-5.1) mmol/L Chloride (98-107) mmol/L Carbon Dioxide (22-30) mmol/L Anion Gap (5-15) MEQ/L BUN (7-17) mg/dL Creatinine (0.52-1.04) mg/dL Estimated GFR ML/MIN Glucose (74-106) mg/dL POC Glucometer 93 (74 to 106) mg/dL Hemoglobin A1c 5.94 (4.5-6.0) % Uric Acid (2.6-6.0) mg/dL Calcium (8.4-10.2) mg/dL Magnesium (1.6-2.3) mg/dL Total Bilirubin (0.2-1.3) mg/dL AST (14-36) U/L ALT (0-35) U/L Alkaline Phosphatase (38-126) U/L Serum Total Protein (6.3-8.2) g/dL Albumin (3.5-5.0) g/dL Triglycerides (30-150) mg/dL Cholesterol (50-200) mg/dL LDL Cholesterol (30-100) mg/dL HDL Cholesterol (40-60) mg/dL Heart Disease Risk Ratio TSH 3rd Generation (0.470-4.680) mIU/L Urine Sodium (30-90) mmol/L 11/26/23 11/26/23 11/26/23 Range/Units 08:35 11:42 16:08 WBC (3.98-10.04) x10^3/uL RBC (3.93-5.22) x10^6/uL Hgb (11.2-15.7) g/dL Hct (34.1-44.9) % MCV (79.4-94.8) fL MCH (25.6-32.2) pg MCHC (32.2-35.5) g/dL RDW (11.7-14.4) % Plt Count (182-369) x10^3/uL MPV (9.4-12.3) fL Gran % (34.0-71.1) % Immature Gran % (Auto) (0.001-0.429) % Nucleat RBC Rel Count (0.00-0.2) % Eos # (Auto) (0.04-0.36) x10^3/uL Immature Gran # (Auto) (0.001-0.031) x10^3u/L Absolute Lymphs (auto) (1.18-3.74) x10^3/uL Absolute Monos (auto) (0.24-0.86) x10^3/uL Absolute Nucleated RBC (0.00-0.012) x10^3u/L Lymphocytes % (19.3-51.7) % Monocytes % (4.7-12.5) % Eosinophils % (0.7-5.8) % Basophils % (0.1-1.2) % Absolute Granulocytes (1.56-6.13) x10^3/uL Basophils # (0.01-0.08) x10^3/uL Sodium 128 L (135-145) mmol/L Potassium 3.5 (3.5-5.1) mmol/L Chloride 97 L (98-107) mmol/L Carbon Dioxide 26 (22-30) mmol/L Anion Gap 8.4 (5-15) MEQ/L BUN 11 (7-17) mg/dL Creatinine 0.45 L (0.52-1.04) mg/dL Estimated GFR 93.1 ML/MIN Glucose 89 (74-106) mg/dL POC Glucometer 86 80 (74 to 106) mg/dL Hemoglobin A1c (4.5-6.0) % Uric Acid (2.6-6.0) mg/dL Calcium 8.4 (8.4-10.2) mg/dL Magnesium 1.7 (1.6-2.3) mg/dL Total Bilirubin 0.70 (0.2-1.3) mg/dL AST 60 H (14-36) U/L ALT 18 (0-35) U/L Alkaline Phosphatase 91 (38-126) U/L Serum Total Protein 5.8 L (6.3-8.2) g/dL Albumin 3.1 L (3.5-5.0) g/dL Triglycerides 178 H (30-150) mg/dL Cholesterol 155 (50-200) mg/dL LDL Cholesterol 73 (30-100) mg/dL HDL Cholesterol 48 (40-60) mg/dL Heart Disease Risk Ratio 3.0 TSH 3rd Generation 0.860 (0.470-4.680) mIU/L Urine Sodium (30-90) mmol/L 11/26/23 11/26/23 11/26/23 Range/Units 18:00 18:48 22:05 WBC (3.98-10.04) x10^3/uL RBC (3.93-5.22) x10^6/uL Hgb (11.2-15.7) g/dL Hct (34.1-44.9) % MCV (79.4-94.8) fL MCH (25.6-32.2) pg MCHC (32.2-35.5) g/dL RDW (11.7-14.4) % Plt Count (182-369) x10^3/uL MPV (9.4-12.3) fL Gran % (34.0-71.1) % Immature Gran % (Auto) (0.001-0.429) % Nucleat RBC Rel Count (0.00-0.2) % Eos # (Auto) (0.04-0.36) x10^3/uL Immature Gran # (Auto) (0.001-0.031) x10^3u/L Absolute Lymphs (auto) (1.18-3.74) x10^3/uL Absolute Monos (auto) (0.24-0.86) x10^3/uL Absolute Nucleated RBC (0.00-0.012) x10^3u/L Lymphocytes % (19.3-51.7) % Monocytes % (4.7-12.5) % Eosinophils % (0.7-5.8) % Basophils % (0.1-1.2) % Absolute Granulocytes (1.56-6.13) x10^3/uL Basophils # (0.01-0.08) x10^3/uL Sodium (135-145) mmol/L Potassium (3.5-5.1) mmol/L Chloride (98-107) mmol/L Carbon Dioxide (22-30) mmol/L Anion Gap (5-15) MEQ/L BUN (7-17) mg/dL Creatinine (0.52-1.04) mg/dL Estimated GFR ML/MIN Glucose (74-106) mg/dL POC Glucometer 102 (74 to 106) mg/dL Hemoglobin A1c (4.5-6.0) % Uric Acid 2.8 (2.6-6.0) mg/dL Calcium (8.4-10.2) mg/dL Magnesium (1.6-2.3) mg/dL Total Bilirubin (0.2-1.3) mg/dL AST (14-36) U/L ALT (0-35) U/L Alkaline Phosphatase (38-126) U/L Serum Total Protein (6.3-8.2) g/dL Albumin (3.5-5.0) g/dL Triglycerides (30-150) mg/dL Cholesterol (50-200) mg/dL LDL Cholesterol (30-100) mg/dL HDL Cholesterol (40-60) mg/dL Heart Disease Risk Ratio TSH 3rd Generation (0.470-4.680) mIU/L Urine Sodium 98 H (30-90) mmol/L Radiology Exams: Radiology Procedures Category Date Time Status CERVICAL SPINE WO CONTRAST [CT] Stat Exams 11/25/23 16:39 Completed CHEST 1 VIEW (PORTABLE) Stat Exams 11/25/23 15:47 Completed HEAD WITHOUT CONTRAST [CT] Stat Exams 11/25/23 16:38 Completed HIP UNI (2V) INCL PEL IF DONE Routine Exams 11/26/23 14:06 Completed HIP UNI (2V) INCL PEL IF DONE Stat Exams 11/25/23 15:47 Completed PELVIS WITHOUT CONTRAST [CT] Stat Exams 11/25/23 16:39 Completed Multi-Disciplinary Progress Notes: Multi-Disciplinary Progress Notes 11/26/23 15:42 Occupational Therapy Note by Lucy Kaplan OCCUPATIONAL THERAPY RECEIVED EVALUATION WITH FOLLOW UP WITH PATIENT WHEN APPROPRIATE FOR THERAPY. TAZ UNDERWENT SURGERY THIS DATE FOR HIP FRACTURE AND RECENTLY TRANSFERRED TO THE FLOOR. OT TO FOLLOW APPROPRIATE. Initialized on 11/26/23 15:42 - END OF NOTE 11/26/23 13:40 Case Management Note by Rosa Madera [facility] HAS ACCEPTED PATIENT AND WILL BE READY FOR HER ON MONDAY 11/27 Initialized on 11/26/23 13:40 - END OF NOTE 11/26/23 12:10 Case Management Note by Rosa Madera S/W FAMILY- PATIENT SLEEPING AND CONFUSION NOTED- THEY WOULD LIKE REHAB PLACEMENT AT [facility]- REFERRAL WITH [employer] FAXED Initialized on 11/26/23 12:10 - END OF NOTE 11/26/23 11:00 (created 11/26/23 12:14) Case Management Note by Rosa Madera PAPERWORK COMPLETE- NO LEVEL II REQUIRED Initialized on 11/26/23 12:14 - END OF NOTE Assessment/Plan (1) Hyponatremia Current Visit: Yes Status: Acute Assessment & Plan: -Improving with IVF, still at 125, will continue IVF -send for serum osmo -TSH, lipid, urine sodium, urine osmo 11/26: -improved now at 132 -urine sodium elevated, tsh/uric acid normal- serum osmo pending -most likely due to hypovolemia with noted improvement with IVF Code(s): E87.1 - HYPO-OSMOLALITY AND HYPONATREMIA (2) Hip fracture Current Visit: Yes Status: Acute Assessment & Plan: -Ortho consulted and following, plan for surgical intervention today -will need rehab on discharge 11/26: -S/P surgical intervention with ortho PODS #1 -plan for rehab on discharge Code(s): S72.009A - FRACTURE OF UNSP PART OF NECK OF UNSP FEMUR, INIT (3) Small cell lung cancer Current Visit: Yes Status: Acute Assessment & Plan: -noted, s/p XRT Code(s): C34.90 - MALIGNANT NEOPLASM OF UNSP PART OF UNSP BRONCHUS OR LUNG (4) Acute metabolic encephalopathy Current Visit: No Status: Acute Assessment & Plan: -CT head negative -UA negative -CXR negative 11/25: -resolved Code(s): G93.41 - METABOLIC ENCEPHALOPATHY (5) Hypertension Current Visit: No Status: Acute Assessment & Plan: -stable, continue home meds Code(s): I10 - ESSENTIAL (PRIMARY) HYPERTENSION (6) Hypomagnesemia Current Visit: No Status: Acute Assessment & Plan: -resolved Code(s): E83.42 - HYPOMAGNESEMIA (7) Hyperlipidemia Current Visit: No Status: Chronic Assessment & Plan: -continue statin Code(s): E78.5 - HYPERLIPIDEMIA, UNSPECIFIED (8) Type II diabetes mellitus, well controlled Current Visit: No Status: Chronic Assessment & Plan: -hold metformin -ssi -A1c -ADA diet VTE: SCD Dispo: pending surgical consult with ortho Code status: Full Code(s): E87.1 - HYPO-OSMOLALITY AND HYPONATREMIA (2) Hip fracture Current Visit: Yes Status: Acute Code(s): S72.009A - FRACTURE OF UNSP PART OF NECK OF UNSP FEMUR, INIT (3) Small cell lung cancer Current Visit: Yes Status: Acute Code(s): C34.90 - MALIGNANT NEOPLASM OF UNSP PART OF UNSP BRONCHUS OR LUNG (4) Acute metabolic encephalopathy Current Visit: No Status: Acute Code(s): G93.41 - METABOLIC ENCEPHALOPATHY (5) Hypertension Current Visit: No Status: Acute Code(s): I10 - ESSENTIAL (PRIMARY) HYPERTENSION (6) Hypomagnesemia Current Visit: No Status: Acute Code(s): E83.42 - HYPOMAGNESEMIA (7) Hyperlipidemia Current Visit: No Status: Chronic Code(s): E78.5 - HYPERLIPIDEMIA, UNSPECIFIED (8) Type II diabetes mellitus, well controlled Current Visit: No Status: Chronic Code(s): E11.9 - TYPE 2 DIABETES MELLITUS WITHOUT COMPLICATIONS
[2023-11-27 06:04] LABS: Absolute Neutrophil Ct (ANC) 7.68 x10^3/uL (1.56-6.13); BASOPHIL % 0.3 % (0.1-1.2); Basophil (Absolute #) 0.03 x10^3/uL (0.01-0.08); Eosinophil % 1.6 % (0.7-5.8); Eosinophil (Absolute #) 0.15 x10^3/uL (0.04-0.36); Hematocrit 31.6 % (34.1-44.9); Hemoglobin 10.8 g/dL (11.2-15.7); IMMATURE GRAN # 0.14 x10^3u/L (0.001-0.031); IMMATURE GRAN % 1.5 % (0.001-0.429); Lymphocyte (Absolute #) 0.76 x10^3/uL (1.18-3.74); Lymphocytes % 7.9 % (19.3-51.7); Mean Corpuscular Hemoglobin 30.8 pg (25.6-32.2); Mean Corpuscular Hgb Concent. 34.2 g/dL (32.2-35.5); Mean Platelet Volume 8.6 fL (9.4-12.3); Monocyte (Absolute #) 0.89 x10^3/uL (0.24-0.86); Monocytes % 9.2 % (4.7-12.5); Neutrophil % 79.5 % (34.0-71.1); Platelet Count 355 x10^3/uL (182-369); Red Blood Count 3.51 x10^6/uL (3.93-5.22); Red Cell Distribution Width 12.8 % (11.7-14.4); White Blood Count 9.7 x10^3/uL (3.98-10.04)
[2023-11-27 06:28] LABS: BILIRUBIN,TOTAL 0.6 mg/dL (0.2-1.3); Calcium 8.2 mg/dL (8.4-10.2); Creatinine 1 0.4 mg/dL (0.52-1.04); EST GLOMERULAR FILTRATION RATE 95.7 ML/MIN; Potassium 3.4 mmol/L (3.5-5.1); Total Protein 5.6 g/dL (6.3-8.2)
--- NOTE | 2023-11-27 09:26 | CONS ---
CONSULT DATE: 11/26/2023 HISTORY: The patient was seen and examined. Her chart was reviewed. The patient is an 88-year-old female who felt like she pulled her groin last Wednesday, approximately 6 days ago, and was having hip pain. She continued to try and ambulate on this. However, the pain yesterday became severe enough that she presented to the emergency room. She was seen and examined and noted to have a displaced subcapital fracture of the right hip. She was admitted to the hospital and the orthopedic consultation was requested. PAST MEDICAL HISTORY: The patient has a significant medical history for hypertension, type 2 diabetes, and some mild depression. She has also had 2 different forms of cancer requiring chemotherapy for her small-lung cell cancer. PHYSICAL EXAMINATION: Her vital signs showed that she has a blood pressure of 145/67, pulse is about 87, temperature is 98. O2 saturation is 91%. Patient weighs 63 kg. The patient was seen and examined. The patient has a shortened and externally rotated lower extremity. She has pulses at +2/4 dorsalis pedis, posterior tibial, and popliteal. Tenderness in the groin. Pain with motion of the hip. LABORATORY DATA AND TESTS: Her most recent labs showed that her sodium is now up to 128 and stable for surgery. She has a stable hemoglobin of 10.4 with a hematocrit of 33. X-ray shows a displaced subcapital fracture of the right hip. IMPRESSION: Displaced subcapital fracture of right hip. RECOMMENDATION AND PLAN: Bipolar karin-replacement arthroplasty of right hip. The inherit risks, benefits, complications, and alternatives as well as no guarantees to outcome were discussed in detail with the patient and her family. Specific risks of bleeding, blood clot, infection, and prosthetic loosening were discussed. The patient's family understands this and was agreeable. Informed consent has been given and signed. She will be taken to the operative suite today.
[2023-11-27] MEDS: Ecotrin 325 MG PO SCH (10:42)
[2023-11-27] MEDS: DESYREL 50 MG PO SCH (21:33)
--- NOTE | 2023-11-28 06:04 | PCM.NOTE ---
Date and Time: 11/28/23 0603 Subjective Assessment: Ms. Campuzano is an 88 year-old female with HTN, HLD, DM2, and SCLC s/p XRT who presents with a hip fracture after a GLF and altered mental status. She had a ground level fall last Wednesday (tripped on carpet and got tangled up with her walker), and subsquently had groin and back pain. She was managed with OTC NASAIDs and muscle relaxers by her PCP, but with continued pain, she sought medical attention at [facility] today. Arrival laboratory data was remarkable for a sodium of 123, and imaging revealed a displaced right femur subcapital acute fracture. CXR, CT head and UA were unremarkable. Dr. Peck orthopedic surgeon on-call, reviewed history, workup and recommended admission to hospitalist service, type screen and needs to optimize sodium before patient can be taken to the OR. 11/25: Met with patient and family bedside. Endorses pain with ambulation. Discussed labs, hyponatremia is improving. Plan for surgical intervention today. Denies fever,cough, sob, cp, abdominal pain, WEBBER, dizziness, N/V/D. 11/26: Met with patient and family at bedside. Patient had rough night, did not sleep, had some confusion. During interview she is alert and orientated. Daughter states she has not been sleeping well lately. POD#1 partial right hip replacement. Discussed case with PT, patient did well today. Pain has improved, although she does experience some pain with ambulation. Plan for trazadone tonight to aid with sleep. Sodium has improved - continue IVF. Plan for rehab on discharge. 11/27: PODS#2 patient doing well. Trazadone effective for sleep, patient rested well. Mild pain with transfers. Labs improving. Plan for rehab most likely tomorrow. Denies fever,cough, sob, cp, abdominal pain, WEBBER, dizziness, N/V/D. - Review of Systems Constitutional: No Symptoms Eyes: No Symptoms Ears, Nose, & Throat: No Symptoms Respiratory: No Symptoms Cardiac: No Symptoms Abdominal/Gastrointestinal: No Symptoms Genitourinary Symptoms: No Symptoms Musculoskeletal: Joint Pain (right hip s/p hip replacment) Skin: Other (surgical incision to right hip) Neurological: No Symptoms Psychological: No Symptoms Endocrine: No Symptoms Hematologic/Lymphatic: No Symptoms Immunological/Allergic: No Symptoms Objective Exam General Appearance: no apparent distress Neurologic Exam: alert, oriented x 3, cooperative Skin Exam: normal color Eye Exam: PERRL Ears, Nose, Throat Exam: normal ENT inspection Neck Exam: normal inspection Respiratory Exam: normal breath sounds, lungs clear Cardiovascular Exam: regular rate/rhythm, normal heart sounds Gastrointestinal/Abdomen Exam: soft, normal bowel sounds Extremity Exam: normal inspection Back Exam: normal inspection Pelvic Exam: deferred Rectal Exam: deferred Objective Data Vital Signs: Vital Signs - 24 hr Temp Pulse Resp BP Pulse Ox 11/27/23 23:41 97.8 F 94 H 18 181/77 92 L 11/27/23 20:00 97.1 F 101 H 16 152/65 93 L 11/27/23 16:00 96.5 F 105 H 18 167/79 90 L 11/27/23 11:44 96.4 F 114 H 18 130/74 91 L Pain Assessment - Last Documented Pain Intensity 0 Pain Scale Used 0-10 Pain Scale Intake and Output: Intake & Output 11/25/23 11/26/23 11/27/23 11/28/23 11:59 11:59 11:59 11:59 Intake Total 0 4465 1440 Output Total 1675 985 Balance -1675 3480 1440 Weight 63 kg Lab Results: Lab Results-Last 24 Hours 11/27/23 11/27/23 11/27/23 Range/Units 05:30 05:30 11:28 WBC 9.7 (3.98-10.04) x10^3/uL RBC 3.51 L (3.93-5.22) x10^6/uL Hgb 10.8 L (11.2-15.7) g/dL Hct 31.6 L (34.1-44.9) % MCV 90.0 (79.4-94.8) fL MCH 30.8 (25.6-32.2) pg MCHC 34.2 (32.2-35.5) g/dL RDW 12.8 (11.7-14.4) % Plt Count 355 (182-369) x10^3/uL MPV 8.6 L (9.4-12.3) fL Gran % 79.5 H (34.0-71.1) % Immature Gran % (Auto) 1.5 H (0.001-0.429) % Nucleat RBC Rel Count 0.0 (0.00-0.2) % Eos # (Auto) 0.15 (0.04-0.36) x10^3/uL Immature Gran # (Auto) 0.14 H (0.001-0.031) x10^3u/L Absolute Lymphs (auto) 0.76 L (1.18-3.74) x10^3/uL Absolute Monos (auto) 0.89 H (0.24-0.86) x10^3/uL Absolute Nucleated RBC 0.00 (0.00-0.012) x10^3u/L Lymphocytes % 7.9 L (19.3-51.7) % Monocytes % 9.2 (4.7-12.5) % Eosinophils % 1.6 (0.7-5.8) % Basophils % 0.3 (0.1-1.2) % Absolute Granulocytes 7.68 H (1.56-6.13) x10^3/uL Basophils # 0.03 (0.01-0.08) x10^3/uL Sodium 132 L (135-145) mmol/L Potassium 3.4 L (3.5-5.1) mmol/L Chloride 98 (98-107) mmol/L Carbon Dioxide 25 (22-30) mmol/L Anion Gap 12.0 (5-15) MEQ/L BUN 8 (7-17) mg/dL Creatinine 0.40 L (0.52-1.04) mg/dL Estimated GFR 95.7 ML/MIN Glucose 96 (74-106) mg/dL POC Glucometer 170 H (74 to 106) mg/dL Calcium 8.2 L (8.4-10.2) mg/dL Total Bilirubin 0.60 (0.2-1.3) mg/dL AST 66 H (14-36) U/L ALT 24 (0-35) U/L Alkaline Phosphatase 100 (38-126) U/L Serum Total Protein 5.6 L (6.3-8.2) g/dL Albumin 3.0 L (3.5-5.0) g/dL 11/27/23 11/27/23 Range/Units 16:34 21:36 WBC (3.98-10.04) x10^3/uL RBC (3.93-5.22) x10^6/uL Hgb (11.2-15.7) g/dL Hct (34.1-44.9) % MCV (79.4-94.8) fL MCH (25.6-32.2) pg MCHC (32.2-35.5) g/dL RDW (11.7-14.4) % Plt Count (182-369) x10^3/uL MPV (9.4-12.3) fL Gran % (34.0-71.1) % Immature Gran % (Auto) (0.001-0.429) % Nucleat RBC Rel Count (0.00-0.2) % Eos # (Auto) (0.04-0.36) x10^3/uL Immature Gran # (Auto) (0.001-0.031) x10^3u/L Absolute Lymphs (auto) (1.18-3.74) x10^3/uL Absolute Monos (auto) (0.24-0.86) x10^3/uL Absolute Nucleated RBC (0.00-0.012) x10^3u/L Lymphocytes % (19.3-51.7) % Monocytes % (4.7-12.5) % Eosinophils % (0.7-5.8) % Basophils % (0.1-1.2) % Absolute Granulocytes (1.56-6.13) x10^3/uL Basophils # (0.01-0.08) x10^3/uL Sodium (135-145) mmol/L Potassium (3.5-5.1) mmol/L Chloride (98-107) mmol/L Carbon Dioxide (22-30) mmol/L Anion Gap (5-15) MEQ/L BUN (7-17) mg/dL Creatinine (0.52-1.04) mg/dL Estimated GFR ML/MIN Glucose (74-106) mg/dL POC Glucometer 133 H 143 H (74 to 106) mg/dL Calcium (8.4-10.2) mg/dL Total Bilirubin (0.2-1.3) mg/dL AST (14-36) U/L ALT (0-35) U/L Alkaline Phosphatase (38-126) U/L Serum Total Protein (6.3-8.2) g/dL Albumin (3.5-5.0) g/dL Radiology Exams: Radiology Procedures Category Date Time Status HIP UNI (2V) INCL PEL IF DONE Routine Exams 11/26/23 14:06 Completed Assessment/Plan (1) Hyponatremia Current Visit: Yes Status: Acute Assessment & Plan: -Improving with IVF, still at 125, will continue IVF -send for serum osmo -TSH, lipid, urine sodium, urine osmo 11/26: -improved now at 132 -urine sodium elevated, tsh/uric acid normal- serum osmo pending -most likely due to hypovolemia with noted improvement with IVF -improving now at 133, continue IVF Code(s): E87.1 - HYPO-OSMOLALITY AND HYPONATREMIA (2) Hip fracture Current Visit: Yes Status: Acute Assessment & Plan: -Ortho consulted and following, plan for surgical intervention today -will need rehab on discharge 11/26: -S/P surgical intervention with ortho PODS #1 -plan for rehab on discharge 11/27: -PODS#2 - doing well, minimal pain with transfers per family, resting better Code(s): S72.009A - FRACTURE OF UNSP PART OF NECK OF UNSP FEMUR, INIT (3) Small cell lung cancer Current Visit: Yes Status: Acute Assessment & Plan: -noted, s/p XRT Code(s): C34.90 - MALIGNANT NEOPLASM OF UNSP PART OF UNSP BRONCHUS OR LUNG (4) Acute metabolic encephalopathy Current Visit: No Status: Acute Assessment & Plan: -CT head negative -UA negative -CXR negative 11/25: -resolved 11/27: -sleep improved with trazadone, mentation improved Code(s): G93.41 - METABOLIC ENCEPHALOPATHY (5) Hypertension Current Visit: No Status: Acute Assessment & Plan: -stable, continue home meds Code(s): I10 - ESSENTIAL (PRIMARY) HYPERTENSION (6) Hypomagnesemia Current Visit: No Status: Acute Assessment & Plan: -resolved Code(s): E83.42 - HYPOMAGNESEMIA (7) Hyperlipidemia Current Visit: No Status: Chronic Assessment & Plan: -continue statin Code(s): E78.5 - HYPERLIPIDEMIA, UNSPECIFIED #Hypokalemia -replenish per protocol (8) Type II diabetes mellitus, well controlled Current Visit: No Status: Chronic Assessment & Plan: -hold metformin -ssi -A1c -ADA diet VTE: SCD Dispo: pending surgical consult with ortho Code status: Full Code(s): E87.1 - HYPO-OSMOLALITY AND HYPONATREMIA (2) Hip fracture Current Visit: Yes Status: Acute Code(s): S72.009A - FRACTURE OF UNSP PART OF NECK OF UNSP FEMUR, INIT (3) Small cell lung cancer Current Visit: Yes Status: Acute Code(s): C34.90 - MALIGNANT NEOPLASM OF UNSP PART OF UNSP BRONCHUS OR LUNG (4) Acute metabolic encephalopathy Current Visit: No Status: Acute Code(s): G93.41 - METABOLIC ENCEPHALOPATHY (5) Hypertension Current Visit: No Status: Acute Code(s): I10 - ESSENTIAL (PRIMARY) HYPERTENSION (6) Hypomagnesemia Current Visit: No Status: Acute Code(s): E83.42 - HYPOMAGNESEMIA (7) Hyperlipidemia Current Visit: No Status: Chronic Code(s): E78.5 - HYPERLIPIDEMIA, UNSPECIFIED (8) Type II diabetes mellitus, well controlled Current Visit: No Status: Chronic Code(s): E11.9 - TYPE 2 DIABETES MELLITUS WITHOUT COMPLICATIONS (9) Status post hip replacement Current Visit: Yes Status: Acute Assessment & Plan: -Partial hip replacements, POD#2- doing well with transfers, minimal pain, resting comfortably -Plan for continued IP PT - discharge to rehab when approved and medically stable. -Ortho following Code(s): Z96.649 - PRESENCE OF UNSPECIFIED ARTIFICIAL HIP JOINT (10) Hypokalemia Current Visit: Yes Status: Acute Code(s): E87.6 - HYPOKALEMIA
[2023-11-28 06:31] LABS: Absolute Neutrophil Ct (ANC) 8.26 x10^3/uL (1.56-6.13); BASOPHIL % 0.3 % (0.1-1.2); Basophil (Absolute #) 0.03 x10^3/uL (0.01-0.08); Eosinophil % 1.5 % (0.7-5.8); Eosinophil (Absolute #) 0.16 x10^3/uL (0.04-0.36); Hematocrit 29.4 % (34.1-44.9); Hemoglobin 10.2 g/dL (11.2-15.7); IMMATURE GRAN # 0.22 x10^3u/L (0.001-0.031); IMMATURE GRAN % 2.1 % (0.001-0.429); Lymphocyte (Absolute #) 0.95 x10^3/uL (1.18-3.74); Lymphocytes % 9.1 % (19.3-51.7); Mean Cell Volume 88.3 fL (79.4-94.8); Mean Corpuscular Hemoglobin 30.6 pg (25.6-32.2); Mean Corpuscular Hgb Concent. 34.7 g/dL (32.2-35.5); Mean Platelet Volume 8.5 fL (9.4-12.3); Monocyte (Absolute #) 0.86 x10^3/uL (0.24-0.86); Monocytes % 8.2 % (4.7-12.5); Neutrophil % 78.8 % (34.0-71.1); Platelet Count 353 x10^3/uL (182-369); Red Blood Count 3.33 x10^6/uL (3.93-5.22); Red Cell Distribution Width 13.2 % (11.7-14.4); White Blood Count 10.5 x10^3/uL (3.98-10.04)
[2023-11-28 06:45] LABS: ALBUMIN 2.7 g/dL (3.5-5.0); ANION GAP 7.8 MEQ/L (5-15); BILIRUBIN,TOTAL 0.7 mg/dL (0.2-1.3); Calcium 8.4 mg/dL (8.4-10.2); Creatinine 1 0.35 mg/dL (0.52-1.04); EST GLOMERULAR FILTRATION RATE 98.9 ML/MIN; Potassium 3.1 mmol/L (3.5-5.1); Total Protein 5.3 g/dL (6.3-8.2)
[2023-11-28 06:45] LABS: Osmolality, Urine 337 mOsmol/kg (.)
[2023-11-28] MEDS: Klor Con PO SCH (09:21)
--- NOTE | 2023-11-28 13:44 | OP ---
SURGERY DATE/TIME: 11/26/2023 8300 - [id number] PREOPERATIVE DIAGNOSIS: Displaced subcapital fracture, right hip. POSTOPERATIVE DIAGNOSIS: Displaced subcapital fracture, right hip. PROCEDURE: Bipolar karin-replacement arthroplasty, right hip utilizing the Stevie [employer] Echo System, size 11 cemented, 28 standard head and a 46 bipolar. SURGEON: Delvin Peck DO FORCE ADJUSTMENT SUPERVISOR: Beti Bar MS4 DESCRIPTION OF PROCEDURE AND FINDINGS: The patient was identified and informed consent was obtained. The patient was then taken to the operative suite where the spinal anesthetic was administered and when appropriate level of anesthesia had been obtained, the patient was placed in the left lateral decubitus position on the operating table. Bony prominences were padded, axillary roll placed. The patient was then appropriately positioned on the peg board. The right hip and lower extremity were then prepped and draped in the usual sterile fashion. A standard time-out was taken. Following this, a standard posterior incision was accomplished. Skin was incised. Dissection was carried out through the subcutaneous tissue. Dissection was then carried out to the level of the tensor fascia ashley. About 1 inch of the tensor was incised so that the gluteus was split in line with the fibers. A Charnley retractor was then placed and a Daniel was then placed under the gluteus medius and minimus. The greater trochanteric bursa was elevated. The piriformis was easily identified. It was tagged and released. Short external rotators were released. Capsule was opened in a T-type fashion. The patient's femoral head was then removed utilizing a corkscrew and Daniel. Any remaining debris of bony fragments were removed with the rongeur. The acetabulum was cleaned of debris and at this point, trial reduction showed a 46 bipolar would be the appropriate size. The neck cut was freshened to 1 fingerbreadth of the cylinder press operator's finger. At this point, then the box chisel was utilized to open the calcar, T-handle reamer to open the canal. Conical reamers were then used to ream the canal to a size 13. Broaching was then also accomplished and at this point it was deemed that a size 11 cemented stem would be the appropriate size. Trial reduction showed that the standard neck length with a 46 bipolar restored the patient's leg lengths to equal and the patient was stable throughout the entire arc of motion including flexion to greater than 90 degrees and internal rotation to 90 degrees. At this point, the trial was removed. The cement was brushed and irrigated. The cement restrictor placed. The tampon was then placed while the cement was being vacuum mixed. Once the cement had been mixed, it was pressed into the interstices of the femur with the cement gun. The prosthesis was inserted and held in position with about 10 degrees of anteversion. Excess cement was removed during the curing process and once the cement had fully cured the 46 bipolar with a standard neck length was then applied and impacted onto the trunnion. At this point, the hip was again placed through a range of motion, noted to have excellent range of motion. The wound was then irrigated and closed with #1 Vicryl to reattach the piriformis and short external rotators, #2 Stratafix for the tensor, 2-0 Monocryl for subcutaneous tissue, and 3-0 Stratafix subcuticular for skin augmented with Dermabond. An Aquacel dressing was then applied. The patient was then transferred to the bed and taken to recovery room in satisfactory condition, having tolerated the procedure well.
[2023-11-29 05:19] LABS: Absolute Neutrophil Ct (ANC) 7.17 x10^3/uL (1.56-6.13); BASOPHIL % 0.5 % (0.1-1.2); Basophil (Absolute #) 0.05 x10^3/uL (0.01-0.08); Eosinophil (Absolute #) 0.19 x10^3/uL (0.04-0.36); Hematocrit 30.7 % (34.1-44.9); Hemoglobin 10.3 g/dL (11.2-15.7); IMMATURE GRAN # 0.39 x10^3u/L (0.001-0.031); Lymphocyte (Absolute #) 1.25 x10^3/uL (1.18-3.74); Lymphocytes % 12.9 % (19.3-51.7); Mean Cell Volume 90.6 fL (79.4-94.8); Mean Corpuscular Hemoglobin 30.4 pg (25.6-32.2); Mean Corpuscular Hgb Concent. 33.6 g/dL (32.2-35.5); Mean Platelet Volume 8.4 fL (9.4-12.3); Monocyte (Absolute #) 0.63 x10^3/uL (0.24-0.86); Monocytes % 6.5 % (4.7-12.5); Neutrophil % 74.1 % (34.0-71.1); Platelet Count 378 x10^3/uL (182-369); Red Blood Count 3.39 x10^6/uL (3.93-5.22); Red Cell Distribution Width 13.2 % (11.7-14.4); White Blood Count 9.7 x10^3/uL (3.98-10.04)
[2023-11-29 05:46] LABS: ALBUMIN 2.8 g/dL (3.5-5.0); ANION GAP 4.5 MEQ/L (5-15); BILIRUBIN,TOTAL 0.7 mg/dL (0.2-1.3); Calcium 8.6 mg/dL (8.4-10.2); Creatinine 1 0.4 mg/dL (0.52-1.04); EST GLOMERULAR FILTRATION RATE 95.7 ML/MIN; Potassium 3.7 mmol/L (3.5-5.1); Total Protein 5.7 g/dL (6.3-8.2)
[2023-11-29 07:57] VITALS: RESP 16
[2023-11-29] MEDS: NORCO 5/325 MG PO PRN (10:25)
[2023-11-29] MEDS: Miralax Powder 17GM PACKET PO SCH (10:25)
--- NOTE | 2023-11-29 11:20 | PCM.DS ---
Discharge Summary Date of Admission: 11/25/23 19:37 Date of Discharge: 11/29/23 Admitting Physician: JUSTIN MIR MD Consults: Consults on Case 11/25/23 19:23 Consult Ortho ROUTINE Primary Care Provider: KENDRA LAMB Allergies Allergies niacin Allergy (Intermediate, Verified 11/25/23 16:01) Rash Hospital Summary - Hospital Course Hospital Course: Ms. Campuzano is an 88 year-old female with HTN, HLD, DM2, and SCLC s/p XRT. She presented with a R hip fracture on 11/25/23 after a GLF and altered mental status. She had a ground level fall last Wednesday (tripped on carpet and got tangled up with her walker), and subsquently had groin and back pain. She was managed with OTC NASAIDs and muscle relaxers by her PCP, but with continued pain, she sought medical attention at [facility]. Arrival laboratory data was remarkable for a sodium of 123, and imaging revealed a displaced right femur subcapital acute fracture. CXR, CT head and UA were unremarkable. Dr. Peck orthopedic surgeon on-call, reviewed history, workup and recommended admission to hospitalist service. Pt had surgical intervention on 11/25- Bipolar karin- replacement, right hip. She is POD #3 and doing well. Plan is to d/c to rehab today. Discussed in detail with family at bedside. Advised to follow ortho recommendations. Pt has not had BM since admission and miralax added. Na+ 132 at d/c- mild hyponatremia. She denies any further concerns at this time. - Vitals & Intake/Output Vital Signs: Vital Signs Temperature 98.0 F 11/29/23 07:56 Pulse Rate 94 H 11/29/23 07:56 Respiratory Rate 16 11/29/23 07:56 Blood Pressure 132/61 11/29/23 07:56 O2 Sat by Pulse Oximetry 95 11/29/23 07:56 Intake & Output: Intake & Output 11/26/23 11/27/23 11/28/23 11/29/23 11:59 11:59 11:59 11:59 Intake Total 0 4465 1560 1790 Output Total 1675 985 425 Balance -1675 3480 1560 1365 Weight 63 kg - Lab Result Diagrams: 11/29/23 05:12 11/29/23 05:12 Lab Results-Last 24 Hrs: Lab Results-Last 24 Hours 11/28/23 11/28/23 11/28/23 Range/Units 16:04 17:22 20:06 WBC (3.98-10.04) x10^3/uL RBC (3.93-5.22) x10^6/uL Hgb (11.2-15.7) g/dL Hct (34.1-44.9) % MCV (79.4-94.8) fL MCH (25.6-32.2) pg MCHC (32.2-35.5) g/dL RDW (11.7-14.4) % Plt Count (182-369) x10^3/uL MPV (9.4-12.3) fL Gran % (34.0-71.1) % Immature Gran % (Auto) (0.001-0.429) % Nucleat RBC Rel Count (0.00-0.2) % Eos # (Auto) (0.04-0.36) x10^3/uL Immature Gran # (Auto) (0.001-0.031) x10^3u/L Absolute Lymphs (auto) (1.18-3.74) x10^3/uL Absolute Monos (auto) (0.24-0.86) x10^3/uL Absolute Nucleated RBC (0.00-0.012) x10^3u/L Lymphocytes % (19.3-51.7) % Monocytes % (4.7-12.5) % Eosinophils % (0.7-5.8) % Basophils % (0.1-1.2) % Absolute Granulocytes (1.56-6.13) x10^3/uL Basophils # (0.01-0.08) x10^3/uL Sodium (135-145) mmol/L Potassium 3.6 4.0 (3.5-5.1) mmol/L Chloride (98-107) mmol/L Carbon Dioxide (22-30) mmol/L Anion Gap (5-15) MEQ/L BUN (7-17) mg/dL Creatinine (0.52-1.04) mg/dL Estimated GFR ML/MIN Glucose (74-106) mg/dL POC Glucometer 166 H (74 to 106) mg/dL Calcium (8.4-10.2) mg/dL Magnesium (1.6-2.3) mg/dL Total Bilirubin (0.2-1.3) mg/dL AST (14-36) U/L ALT (0-35) U/L Alkaline Phosphatase (38-126) U/L Serum Total Protein (6.3-8.2) g/dL Albumin (3.5-5.0) g/dL 11/28/23 11/29/23 11/29/23 Range/Units 21:18 05:12 05:12 WBC 9.7 (3.98-10.04) x10^3/uL RBC 3.39 L (3.93-5.22) x10^6/uL Hgb 10.3 L (11.2-15.7) g/dL Hct 30.7 L (34.1-44.9) % MCV 90.6 (79.4-94.8) fL MCH 30.4 (25.6-32.2) pg MCHC 33.6 (32.2-35.5) g/dL RDW 13.2 (11.7-14.4) % Plt Count 378 H (182-369) x10^3/uL MPV 8.4 L (9.4-12.3) fL Gran % 74.1 H (34.0-71.1) % Immature Gran % (Auto) 4.0 H (0.001-0.429) % Nucleat RBC Rel Count 0.0 (0.00-0.2) % Eos # (Auto) 0.19 (0.04-0.36) x10^3/uL Immature Gran # (Auto) 0.39 H (0.001-0.031) x10^3u/L Absolute Lymphs (auto) 1.25 (1.18-3.74) x10^3/uL Absolute Monos (auto) 0.63 (0.24-0.86) x10^3/uL Absolute Nucleated RBC 0.00 (0.00-0.012) x10^3u/L Lymphocytes % 12.9 L (19.3-51.7) % Monocytes % 6.5 (4.7-12.5) % Eosinophils % 2.0 (0.7-5.8) % Basophils % 0.5 (0.1-1.2) % Absolute Granulocytes 7.17 H (1.56-6.13) x10^3/uL Basophils # 0.05 (0.01-0.08) x10^3/uL Sodium 132 L (135-145) mmol/L Potassium 3.7 (3.5-5.1) mmol/L Chloride 102 (98-107) mmol/L Carbon Dioxide 29 (22-30) mmol/L Anion Gap 4.5 L (5-15) MEQ/L BUN 20 H (7-17) mg/dL Creatinine 0.40 L (0.52-1.04) mg/dL Estimated GFR 95.7 ML/MIN Glucose 117 H (74-106) mg/dL POC Glucometer 106 (74 to 106) mg/dL Calcium 8.6 (8.4-10.2) mg/dL Magnesium (1.6-2.3) mg/dL Total Bilirubin 0.70 (0.2-1.3) mg/dL AST 50 H (14-36) U/L ALT 29 (0-35) U/L Alkaline Phosphatase 103 (38-126) U/L Serum Total Protein 5.7 L (6.3-8.2) g/dL Albumin 2.8 L (3.5-5.0) g/dL 11/29/23 11/29/23 Range/Units 05:12 07:40 WBC (3.98-10.04) x10^3/uL RBC (3.93-5.22) x10^6/uL Hgb (11.2-15.7) g/dL Hct (34.1-44.9) % MCV (79.4-94.8) fL MCH (25.6-32.2) pg MCHC (32.2-35.5) g/dL RDW (11.7-14.4) % Plt Count (182-369) x10^3/uL MPV (9.4-12.3) fL Gran % (34.0-71.1) % Immature Gran % (Auto) (0.001-0.429) % Nucleat RBC Rel Count (0.00-0.2) % Eos # (Auto) (0.04-0.36) x10^3/uL Immature Gran # (Auto) (0.001-0.031) x10^3u/L Absolute Lymphs (auto) (1.18-3.74) x10^3/uL Absolute Monos (auto) (0.24-0.86) x10^3/uL Absolute Nucleated RBC (0.00-0.012) x10^3u/L Lymphocytes % (19.3-51.7) % Monocytes % (4.7-12.5) % Eosinophils % (0.7-5.8) % Basophils % (0.1-1.2) % Absolute Granulocytes (1.56-6.13) x10^3/uL Basophils # (0.01-0.08) x10^3/uL Sodium (135-145) mmol/L Potassium (3.5-5.1) mmol/L Chloride (98-107) mmol/L Carbon Dioxide (22-30) mmol/L Anion Gap (5-15) MEQ/L BUN (7-17) mg/dL Creatinine (0.52-1.04) mg/dL Estimated GFR ML/MIN Glucose (74-106) mg/dL POC Glucometer 114 H (74 to 106) mg/dL Calcium (8.4-10.2) mg/dL Magnesium 1.2 L (1.6-2.3) mg/dL Total Bilirubin (0.2-1.3) mg/dL AST (14-36) U/L ALT (0-35) U/L Alkaline Phosphatase (38-126) U/L Serum Total Protein (6.3-8.2) g/dL Albumin (3.5-5.0) g/dL Micro Results-Entire Visit: Microbiology 11/25/23 16:30 Blood Culture - Preliminary Blood 11/25/23 16:42 Blood Culture - Preliminary Blood Accuchecks Date 11/29/23 Date 11/28/23 Date 11/28/23 Time 07:56 Time 17:29 Time 12:28 - Procedures and Test Procedures and Tests throughout Hospitalization: Therapy Orders & Screens 11/25/23 19:35 Respiratory Therapy Consult ONCE Comment: Reason For Exam: 11/26/23 15:04 PT Eval & Treat ( Order) ONCE Reason for Eval:: gait training,WBAT RLE with walker,ROM and Gen stregnthening, standard THRA rehab Diagnosis: confusion, hip fx 11/26/23 15:25 OT Eval and Treat ( Order) ROUTINE Comment: Physician Instructions: Reason For Exam: Evaluate: Yes Treat: Yes Reason for Evaluation: ADL's Diagnosis: confusion, hip fx Discharge Exam General Appearance: no apparent distress, alert Neurologic Exam: alert, oriented x 3, cooperative, normal mood/affect, nml cerebellar function, sensation nml, No motor deficits Eye Exam: PERRL, EOMI, eyes nml inspection Ears, Nose, Throat Exam: normal ENT inspection, pharynx normal, moist mucous membranes Neck Exam: normal inspection, non-tender, supple, full range of motion Respiratory Exam: normal breath sounds, lungs clear, No respiratory distress Cardiovascular Exam: regular rate/rhythm, normal heart sounds Gastrointestinal/Abdomen Exam: soft, No tenderness, No mass Pelvic Exam: deferred Rectal Exam: deferred Back Exam: normal inspection, normal range of motion, No CVA tenderness, No vertebral tenderness Extremity Exam: normal inspection, normal range of motion, limited range of motion (right hip) Skin Exam: normal color, warm, dry Final Diagnosis/Problem List - Final Discharge Diagnosis/Problem (1) Hip fracture Current Visit: Yes Status: Acute Assessment & Plan: - ortho consulted - POD #3 Bipolar karin- replcement arthroplasty right hip completed 11/25 by ortho - pain well controlled with norco - PT per ortho recs - Rehab at d/c - Continue ASA x4 weeks per ortho, stop home dose of ASA - Pain meds sent in by ortho Code(s): S72.009A - FRACTURE OF UNSP PART OF NECK OF UNSP FEMUR, INIT (2) Hyponatremia Current Visit: Yes Status: Acute Assessment & Plan: - Na+ 132- mild- Check Op with PCP following Code(s): E87.1 - HYPO-OSMOLALITY AND HYPONATREMIA (3) Small cell lung cancer Current Visit: Yes Status: Chronic Assessment & Plan: -noted, s/p XRT Code(s): C34.90 - MALIGNANT NEOPLASM OF UNSP PART OF UNSP BRONCHUS OR LUNG (4) Acute metabolic encephalopathy Current Visit: No Status: Resolved Assessment & Plan: - resolved since admission -CT head negative -UA negative -CXR negative Code(s): G93.41 - METABOLIC ENCEPHALOPATHY (5) Hypertension Current Visit: No Status: Chronic Assessment & Plan: -stable, continue home meds Code(s): I10 - ESSENTIAL (PRIMARY) HYPERTENSION (6) Hypomagnesemia Current Visit: No Status: Resolved Assessment & Plan: - resolved Code(s): E83.42 - HYPOMAGNESEMIA (7) Hyperlipidemia Current Visit: No Status: Chronic Assessment & Plan: -continue statin Code(s): E78.5 - HYPERLIPIDEMIA, UNSPECIFIED (8) Type II diabetes mellitus, well controlled Current Visit: No Status: Chronic Assessment & Plan: -hold metformin -ssi, accuchecks ac/hs -A1c 5.94- controlled -ADA diet Code(s): E11.9 - TYPE 2 DIABETES MELLITUS WITHOUT COMPLICATIONS (9) Constipation Current Visit: Yes Status: Acute Assessment & Plan: - miralax added - 2:2 Narcotic pain medication Code(s): K59.00 - CONSTIPATION, UNSPECIFIED - Discharge Discharge Date: 11/29/23 (rehab facility) Disposition: XFER OTHER Condition: Stable Prescriptions: New Aspirin EC 325 mg [Ecotrin 325 MG] 325 mg PO DAILY tablet Polyethylene Glycol 3350 17 gm [Miralax Powder 17GM PACKET] 17 gm PO DAILY 30 Days #30 pkt Continue Metformin HCl 500 mg [Glucophage 500 MG] 500 mg PO BIDWM Lisinopril 20 mg [Zestril 20 MG] 10 mg PO DAILY Escitalopram Oxalate [Lexapro] 10 mg PO DAILY Simvastatin 20Mg [Zocor 20Mg] 20 mg PO HS Cephalexin Mh 500 mg [Keflex 500 mg] 250 mg PO DAILY Amlodipine Besylate 5 mg [Norvasc 5 mg] 5 mg PO QAM 30 Days #30 tablet Discontinued Aspirin 81 gm Chew [Baby Aspirin 81 mg Chew] 81 mg PO DAILY Additional Instructions: [facility] ORDERS: ADMIT TO SKILLED REHAB FACILITY REGULAR DIET ACHS ACCU CHECKS PT- GAIT TRAINING WBAT RIGHT LOWER EXTREMITY WITH WALKER ROM AND GENERAL STRENGTHENING STANDARD HIP REPLACEMENT PRECAUTIONS OT- FOR ADLS LEAVE DRESSING IN PLACE X 7 DAYS FROM 11/26/23 ICE TO HIP PRN CONTINUE ASPIRIN X 4 WEEKS Tre sent in by ortho for pain PRN Follow up with: MICHAEL PECK DO [ACTIVE STAFF] - 12/14/23 8:00 am
[2023-11-29 12:14] VITALS: BP 162/69; PULSE 84; TEMP 97.9; O2SAT 94
== END 2023-11-29 14:07 | DRG 521 ==
LOC: ED 15:40 → MED SURG 19:37
PROVIDERS: ADMIT Internal Medicine; ATTEND Internal Medicine
PROC: 0SR90J9 Replacement of Right Hip Joint with Synthetic Substitute, Cemented, Open Approach (ICD-10-PCS; principal; 2023-11-26)
DX: S72.001A Fracture of unspecified part of neck of right femur, initial encounter for closed fracture (principal); G93.41 Metabolic encephalopathy; E87.1 Hypo-osmolality and hyponatremia; C34.90 Malignant neoplasm of unspecified part of unspecified bronchus or lung; I10 Essential (primary) hypertension; E83.42 Hypomagnesemia; E78.5 Hyperlipidemia, unspecified; E11.9 Type 2 diabetes mellitus without complications; K59.00 Constipation, unspecified; Z79.899 Other long term (current) drug therapy; R41.82 Altered mental status, unspecified; W19.XXXA Unspecified fall, initial encounter
CPT/HCPCS: 27236; 36000; 36415; 51702; 70450; 71045; 72125; 72192; 73502; 80053; 80061; 81001; 82550; 82947; 83036; 83605; 83721; 83735; 83930; 83935; 84132; 84300; 84443; 84484; 84550; 85025; 86850; 86900; 86901; 87040; 94760; 96365; 96366; 97110; 97161; 97530; 99285; Q3014; C1713; C1776; J0171; J0690; J2371; J2704; J2795; J3370; J3475; A9270-GY

== ENCOUNTER 2023-12-19 00:33 | Emergency (ER) | payer MEDICARE ==
[2023-12-19 00:36] VITALS: TEMP 97.9
--- NOTE | 2023-12-19 01:02 | ERPHSYRPT ---
- History of Present Illness Time Seen by Provider: 12/19/23 01:02 Historian: patient Exam Limitations: no limitations Patient Subjective Stated Complaint: nausea, vomiting x5 today, diarrhea x1, dizzy Triage Nursing Assessment: pt brought in by ems, pt is alert and oriented x4, daughter at bedside. Pt began vomiting since 8am this morning, off and on throughout the day, for about 5 times, diarrhea x1. Abd soft with active bs x4 quad, nontender. Pt c/o a dizzy headache that she's had most of the day. Pt's daughter states, "she used to get those alot but hasn't had one for a long time". Physician History: The patient, with a history of small cell carcinoma and recent hip surgery, presents with a one-day history of dizziness and vomiting. The symptoms began after breakfast and have persisted throughout the day. The patient also reports a worsening headache that started in the morning. Despite these symptoms, she has been ambulatory, albeit less than usual. The patient denies any weakness, changes in speech, or facial drooping. She also denies any abdominal pain. However, she reports some shortness of breath, described as "huffing and puffing." The patient has a known history of small cell carcinoma, with multiple treatments in the past, including nineteen treatments for a large lesion removed a year ago. She reports feeling new lesions, indicating possible disease progression. The patient also has a history of urinary tract infections (UTIs) associated with confusion when dehydrated. However, she denies any current dysuria. She also denies any known kidney problems or heart failure. The patient's recent hip surgery has reportedly healed well, with her able to lift the leg and walk without significant difficulty. Despite the current symptoms, she denies any previous history of stroke. Timing/Duration: today, sudden Activities at Onset: rest Quality: cramping Abdominal Pain Onset Location: generalized abdomen Pain Radiation: no radiation Severity of Pain-Max: mild Severity of Pain-Current: mild Modifying Factors: Improves With: nothing. Worsens With: vomiting Associated Symptoms: diarrhea, fatigue, headache, loss of appetite, nausea, vomiting, weakness, other (dizzy), No back, No chest pain, No diaphoresis, No fever/chills Previous symptoms: same symptoms as today Allergies/Adverse Reactions: niacin Allergy (Intermediate, Verified 12/19/23 00:49) Rash Home Medications: Lisinopril 20 mg [Zestril 20 MG] 10 mg PO DAILY 01/26/23 [History] Metformin HCl 500 mg [Glucophage 500 MG] 500 mg PO BIDWM 01/26/23 [History] Escitalopram Oxalate [Lexapro] 10 mg PO DAILY 03/05/23 [History] Simvastatin 20Mg [Zocor 20Mg] 20 mg PO HS 09/22/23 [History] Cephalexin Mh 500 mg [Keflex 500 mg] 250 mg PO DAILY 10/31/23 [History] Amiloride HCl 1 tab PO DAILY 12/19/23 [History] Aspirin EC 81 mg [Ecotrin 81 mg] 1 tab PO DAILY 12/19/23 [History] Hx Tetanus, Diphtheria Vaccination/Date Given: Yes Hx Influenza Vaccination/Date Given: Yes Hx Pneumococcal Vaccination/Date Given: Yes Travel Risk - International Travel Have you traveled outside of the country in past 3 weeks: No - Emerging Infectious Disease Are you exhibiting symptoms associated with any current EIDs: Yes Symptoms: Diarrhea, Vomitting - Review of Systems All Other Systems: Reviewed and Negative - Past Medical History Pertinent Past Medical History: Yes Neurological History: No Pertinent History ENT History: No Pertinent History Cardiac History: High Cholesterol, Hypertension, Other Respiratory History: Lung Cancer Endocrine Medical History: Diabetes Type II Musculoskeletal History: Fractures GI Medical History: No Pertinent History History: Other Psycho-Social History: Anxiety Female Reproductive Disorders: No Pertinent History Other Medical History: heart murmur- Dr Verma, 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 frequent UTIs, fx Rt hip - Past Surgical History Past Surgical History: Yes Neuro Surgical History: No Pertinent History Cardiac: No Pertinent History Respiratory: No Pertinent History Gastrointestinal: No Pertinent History Genitourinary: No Pertinent History Musculoskeletal: Orthopedic Surgery Female Surgical History: Hysterectomy Significant Family History: no pertinent family hx - Social History Smoking Status: Never smoker Exposure to second hand smoke: No Drug Use: none Patient Lives Alone: No - Social Determinants of Health Will the patient participate in the screening: Yes Do you worry about a steady place to live?: No Do you have any problems with any of the following?: No known problems In the past 12 months,have you had to go without utilities?: No Transportation Issues: No Has anyone in your support network made you feel unsafe?: No Have you or anyone in your house had to go without enough: No - Nursing Vital Signs Nursing Vital Signs: Initial Vital Signs Blood Pressure 176/88 12/19/23 00:31 O2 Sat by Pulse Oximetry 98 12/19/23 00:31 Pain Scale Pain Intensity 0 - Physical Exam General Appearance: no apparent distress, thin Eye Exam: PERRL/EOMI, eyes nml inspection, pale conjunctivae Ears, Nose, Throat Exam: normal ENT inspection Neck Exam: non-tender, full range of motion, mass (right neck, known to patient, followed by heme/onc) Respiratory Exam: normal breath sounds, lungs clear, airway intact, No chest tenderness, No respiratory distress Cardiovascular Exam: tachycardia, capillary refill 2-3 sec, No edema Gastrointestinal/Abdomen Exam: soft, normal bowel sounds, tenderness (suprapubic), No distention, No mass, No guarding, No rebound Back Exam: normal inspection, No CVA tenderness Extremity Exam: No swelling, No tenderness Neurologic Exam: alert, oriented x 3, cooperative, rhinestone setter II-XII nml as tested, normal mood/affect, nml cerebellar function, sensation nml, No motor deficits, No facial droop, No slurred speech Skin Exam: normal color, warm, dry SpO2 Interpretation: normal SpO2: 99 O2 Delivery: Room Air - Course Nursing assessment & vital signs reviewed: Yes - CT Exams Head CT Interpretation: Discussed w/radiologist, No/Intracranial Hemorrhag, Other (No cerebral circulation embolism, left pulm artery lesion PE vs hilar LN) Ordered Tests: Active Orders 24 hr Category Date Time Status IV Insertion STAT Care 12/19/23 01:[address] ANGIOGRAPHY NECK [CT] Stat Exams 12/19/23 01:15 Completed CTA HEAD W AND/OR WO CONTRAST [CT] Stat Exams 12/19/23 01:15 Completed CBC W DIFF Stat Lab 12/19/23 02:02 Completed CMP Stat Lab 12/19/23 02:02 Completed LIPASE Stat Lab 12/19/23 02:02 Completed Lactic Acid Stat Lab 12/19/23 01:13 Completed UA W/RFX UR CULTURE Stat Lab 12/19/23 01:33 Completed Medication Summary Discontinued Medications Generic Name Dose Route Start Last Admin Trade Name Freq PRN Reason Stop Dose Admin Dexamethasone Sodium Phosphate 6 mg 12/19/23 01:19 12/19/23 01:40 Dexamethasone Sod Phosphate 10 Mg/Ml IV 12/19/23 01:20 6 mg STAT ONE Administration Dexamethasone Sodium Phosphate Confirm 12/19/23 01:35 Dexamethasone Sod Phosphate 10 Mg/Ml Administered 12/19/23 01:36 Dose 10 mg .ROUTE .STK-MED ONE Sodium Chloride 1,000 mls @ 999 mls/hr 12/19/23 01:13 12/19/23 01:39 Sodium Chloride 0.9% 1000 Ml IV 12/19/23 02:13 999 mls/hr .Q1H1M STA Administration Sodium Chloride Confirm 12/19/23 01:36 Sodium Chloride 0.9% 1000 Ml Administered 12/19/23 01:37 Dose 1,000 mls @ ud .ROUTE .STK-MED ONE Ceftriaxone Sodium 1 gm in 100 mls @ 200 mls/hr 12/19/23 01:55 12/19/23 02:00 Rocephin 1 Gm / 100 Ml Nacl IV 12/19/23 02:24 200 mls/hr STAT ONE 200 mls/hr Administration Ceftriaxone Sodium Confirm 12/19/23 01:57 Rocephin 1 Gm / 100 Ml Nacl Administered 12/19/23 01:58 Dose 1 gm in 100 mls @ ud IV .STK-MED ONE Labetalol HCl 20 mg 12/19/23 02:38 12/19/23 02:57 Labetalol Hcl 20 Mg/4 Ml Disp.Syringe IV 12/19/23 02:39 20 mg STAT ONE Administration Labetalol HCl Confirm 12/19/23 02:56 Labetalol Hcl 20 Mg/4 Ml Disp.Syringe Administered 12/19/23 02:57 Dose 20 mg IV .STK-MED ONE Potassium Chloride 40 meq 12/19/23 02:33 12/19/23 02:35 Potassium Chloride Tab 10 Meq Tab PO 12/19/23 02:34 40 meq STAT ONE Administration Potassium Chloride Confirm 12/19/23 02:35 Potassium Chloride Tab 10 Meq Tab Administered 12/19/23 02:36 Dose 40 meq .ROUTE .STK-MED ONE Lab/Rad Data: Laboratory Result Diagrams 12/19/23 02:02 12/19/23 02:02 Laboratory Results 12/19/23 12/19/23 12/19/23 Range/Units 02:02 02:02 01:33 WBC 12.4 H (3.98-10.04) x10^3/uL RBC 3.63 L (3.93-5.22) x10^6/uL Hgb 11.1 L (11.2-15.7) g/dL Hct 34.0 L (34.1-44.9) % MCV 93.7 (79.4-94.8) fL MCH 30.6 (25.6-32.2) pg MCHC 32.6 (32.2-35.5) g/dL RDW 15.7 H (11.7-14.4) % Plt Count 392 H (182-369) x10^3/uL MPV 8.3 L (9.4-12.3) fL Gran % 82.0 H (34.0-71.1) % Immature Gran % (Auto) 1.2 H (0.001-0.429) % Nucleat RBC Rel Count 0.0 (0.00-0.2) % Eos # (Auto) 0.01 L (0.04-0.36) x10^3/uL Immature Gran # (Auto) 0.15 H (0.001-0.031) x10^3u/L Absolute Lymphs (auto) 1.11 L (1.18-3.74) x10^3/uL Absolute Monos (auto) 0.93 H (0.24-0.86) x10^3/uL Absolute Nucleated RBC 0.00 (0.00-0.012) x10^3u/L Lymphocytes % 9.0 L (19.3-51.7) % Monocytes % 7.5 (4.7-12.5) % Eosinophils % 0.1 L (0.7-5.8) % Basophils % 0.2 (0.1-1.2) % Absolute Granulocytes 10.16 H (1.56-6.13) x10^3/uL Basophils # 0.03 (0.01-0.08) x10^3/uL Sodium 132 L (135-145) mmol/L Potassium 3.2 L (3.5-5.1) mmol/L Chloride 98 (98-107) mmol/L Carbon Dioxide 25 (22-30) mmol/L Anion Gap 12.1 (5-15) MEQ/L BUN 13 (7-17) mg/dL Creatinine 0.41 L (0.52-1.04) mg/dL Estimated GFR 95.2 ML/MIN Glucose 100 (74-106) mg/dL Lactic Acid (0.4-2.0) Calcium 8.5 (8.4-10.2) mg/dL Total Bilirubin 0.70 (0.2-1.3) mg/dL AST 46 H (14-36) U/L ALT 15 (0-35) U/L Alkaline Phosphatase 132 H (38-126) U/L Serum Total Protein 5.9 L (6.3-8.2) g/dL Albumin 3.3 L (3.5-5.0) g/dL Lipase 90 (23-300) U/L Urine Color Yellow (Yellow) Urine Appearance Clear (Clear) Urine pH 7.5 (4.6-8.0) Ur Specific [place] 1.010 (1.005-1.030) Urine Protein Negative (Negative) Urine Glucose (UA) Negative (Negative) mg/dL Urine Ketones 15 A (Negative) Urine Blood Negative (Negative) Urine Nitrite Negative (Negative) Urine Bilirubin Negative (Negative) Urine Urobilinogen 1.0 A (0.2) mg/dL Ur Leukocyte Esterase Trace A (Negative) U Hyaline Cast (Auto) NONE SEEN (0-2) /LPF Urine Microscopic RBC 0-2 (0-5) /HPF Urine Microscopic WBC 0-2 (0-5) /HPF Ur Epithelial Cells None Seen (None Seen) /HPF Urine Bacteria None Seen (None Seen) /HPF Urine Culture Reflexed NO (NO) 12/19/23 Range/Units 01:13 WBC (3.98-10.04) x10^3/uL RBC (3.93-5.22) x10^6/uL Hgb (11.2-15.7) g/dL Hct (34.1-44.9) % MCV (79.4-94.8) fL MCH (25.6-32.2) pg MCHC (32.2-35.5) g/dL RDW (11.7-14.4) % Plt Count (182-369) x10^3/uL MPV (9.4-12.3) fL Gran % (34.0-71.1) % Immature Gran % (Auto) (0.001-0.429) % Nucleat RBC Rel Count (0.00-0.2) % Eos # (Auto) (0.04-0.36) x10^3/uL Immature Gran # (Auto) (0.001-0.031) x10^3u/L Absolute Lymphs (auto) (1.18-3.74) x10^3/uL Absolute Monos (auto) (0.24-0.86) x10^3/uL Absolute Nucleated RBC (0.00-0.012) x10^3u/L Lymphocytes % (19.3-51.7) % Monocytes % (4.7-12.5) % Eosinophils % (0.7-5.8) % Basophils % (0.1-1.2) % Absolute Granulocytes (1.56-6.13) x10^3/uL Basophils # (0.01-0.08) x10^3/uL Sodium (135-145) mmol/L Potassium (3.5-5.1) mmol/L Chloride (98-107) mmol/L Carbon Dioxide (22-30) mmol/L Anion Gap (5-15) MEQ/L BUN (7-17) mg/dL Creatinine (0.52-1.04) mg/dL Estimated GFR ML/MIN Glucose (74-106) mg/dL Lactic Acid 2.4 H (0.4-2.0) Calcium (8.4-10.2) mg/dL Total Bilirubin (0.2-1.3) mg/dL AST (14-36) U/L ALT (0-35) U/L Alkaline Phosphatase (38-126) U/L Serum Total Protein (6.3-8.2) g/dL Albumin (3.5-5.0) g/dL Lipase (23-300) U/L Urine Color (Yellow) Urine Appearance (Clear) Urine pH (4.6-8.0) Ur Specific [place] (1.005-1.030) Urine Protein (Negative) Urine Glucose (UA) (Negative) mg/dL Urine Ketones (Negative) Urine Blood (Negative) Urine Nitrite (Negative) Urine Bilirubin (Negative) Urine Urobilinogen (0.2) mg/dL Ur Leukocyte Esterase (Negative) U Hyaline Cast (Auto) (0-2) /LPF Urine Microscopic RBC (0-5) /HPF Urine Microscopic WBC (0-5) /HPF Ur Epithelial Cells (None Seen) /HPF Urine Bacteria (None Seen) /HPF Urine Culture Reflexed (NO) - Progress Progress: improved Progress Note: Patient given IV Rocephin for UTI. Responded extremely well to IVF and steroids. 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 CTA head/neck performed to r/o posterior circulation embolism/dissection which was neg. She was found to have a lesion near left p ulmonary artery that was unclear if hilar LN vs PE. Patient has no clinical signs or symptoms of PE at this time. 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 I had a long discussion with the patient and her daughter about empirically treating with anticoagulation since we are unable to repeat CTA chest due to recent CTA head/neck. Patient would like to defer empiric tx and prefers to just return if sxs develop. Will dc home with scopalamine patch and medrol pack. Counseled pt/family regarding: lab results, diagnosis, need for follow-up, rad results Medical Desision Making - Diagnostic Testing Diagnostic test were ordered, analyzed, and reviewed by me: Yes Radiological Interpretation: Interpreted by me, Reviewed by me, Teleradiologist Report - Risk of complications The pt has a mod risk of morbidity or mortality based on: Need for prescription drug management - Departure Departure Disposition: Home Clinical Impression: Dehydration, UTI (urinary tract infection), Dizziness, Headache, Nausea and vomiting, Leukocytosis, Hypokalemia, Elevated AST (SGOT), Small cell lung cancer, Status post hip replacement, Anemia, Uncontrolled hypertension Condition: Good Critical Care Time: No Referrals: KENDRA LAMB NP [Primary Care Provider] - Follow up/PCP as directed Instructions: Dehydration, Adult ED, Urinary Tract Infection, Adult ED, Dizziness, Adult ED Prescriptions: Scopolamine [Transderm-Scop] 1 each TD [id number] PRN #7 patch PRN Reason: Dizziness Methylprednisolone Packet [Medrol Dosepack] 4 mg PO UD #30 packet
[2023-12-19] MEDS ORDERED: DECADRON 10MG INJ. ONE (01:35)
[2023-12-19] MEDS ORDERED: Sodium Chloride 0.9% 1000 ML 1,000 ML ONE (01:36)
[2023-12-19] MEDS: Sodium Chloride 0.9% 1000 ML 1,000 ML IV STA (01:39)
[2023-12-19] MEDS: DECADRON 10MG INJ. IV ONE (01:40)
[2023-12-19 01:43] LABS: Appearance Clear (Clear); Bacteria None Seen /HPF (None Seen); Bilirubin Negative (Negative); Blood Negative (Negative); Epithelial Cells None Seen /HPF (None Seen); Glucose, Urine Negative (Negative); Hyaline Casts NONE SEEN /LPF (0-2); Ketones 15 (Negative); Leukocyte Esterase Trace (Negative); Nitrite Negative (Negative); Ph 7.5 (4.6-8.0); Protein,Urine Dip Negative (Negative); RBC 0-2 /HPF (0-5); WBC 0-2 /HPF (0-5)
[2023-12-19 01:45] LABS: ADD URINE CULTURE? NO (NO)
[2023-12-19] MEDS ORDERED: ROCEPHIN 1 GM / 100 ML NaCl 1 GM/100 ML IVPB IV ONE (01:57)
[2023-12-19] MEDS: ROCEPHIN 1 GM / 100 ML NaCl 1 GM/100 ML IVPB IV ONE (02:00)
[2023-12-19 02:19] LABS: ALBUMIN 3.3 g/dL (3.5-5.0); ANION GAP 12.1 MEQ/L (5-15); Absolute Neutrophil Ct (ANC) 10.16 x10^3/uL (1.56-6.13); BASOPHIL % 0.2 % (0.1-1.2); BILIRUBIN,TOTAL 0.7 mg/dL (0.2-1.3); Basophil (Absolute #) 0.03 x10^3/uL (0.01-0.08); Calcium 8.5 mg/dL (8.4-10.2); Creatinine 1 0.41 mg/dL (0.52-1.04); EST GLOMERULAR FILTRATION RATE 95.2 ML/MIN; Eosinophil % 0.1 % (0.7-5.8); Eosinophil (Absolute #) 0.01 x10^3/uL (0.04-0.36); Hemoglobin 11.1 g/dL (11.2-15.7); IMMATURE GRAN # 0.15 x10^3u/L (0.001-0.031); IMMATURE GRAN % 1.2 % (0.001-0.429); Lymphocyte (Absolute #) 1.11 x10^3/uL (1.18-3.74); Mean Cell Volume 93.7 fL (79.4-94.8); Mean Corpuscular Hemoglobin 30.6 pg (25.6-32.2); Mean Corpuscular Hgb Concent. 32.6 g/dL (32.2-35.5); Mean Platelet Volume 8.3 fL (9.4-12.3); Monocyte (Absolute #) 0.93 x10^3/uL (0.24-0.86); Monocytes % 7.5 % (4.7-12.5); Platelet Count 392 x10^3/uL (182-369); Potassium 3.2 mmol/L (3.5-5.1); Red Blood Count 3.63 x10^6/uL (3.93-5.22); Red Cell Distribution Width 15.7 % (11.7-14.4); Total Protein 5.9 g/dL (6.3-8.2); White Blood Count 12.4 x10^3/uL (3.98-10.04)
[2023-12-19] MEDS: Klor Con PO ONE (02:35)
[2023-12-19] MEDS ORDERED: Klor Con ONE (02:35)
[2023-12-19] MEDS ORDERED: TRANDATE 20 MG/4 ML SYRINGE IV ONE (02:56)
--- NOTE | 2023-12-19 02:56 | XRAY ---
CLINICAL HISTORY: dizziness COMPARISON: CT head 10/31/2023 and 11/25/2023 TECHNIQUE: Axial non-contrast and contrast-enhanced CT scan of the brain were performed from the skull base to the high parietal region with multiple reformats. One of the following dose reduction techniques were utilized for this exam: Automated exposure control, adjustment of the mA and/or kV according to patient size, use of iterative reconstruction. One of these 3D techniques was utilized: Maximum Intensity Pixel (MIP), 3D Reconstructed Images, Volume Rendered Images, Surface Shaded Rendering. FINDINGS: The intracranial segments of the ICAs bilaterally are patent, of average caliber with no evidence of significant stenotic or occluded segments. There is normal bifurcation of the ICAs into anterior and middle cerebral arteries. The anterior and middle cerebral arteries, on both sides, are patent, of average caliber and normally enhanced with contrast. No evidence of significant stenosis or occlusion. The vertebral, basilar and posterior cerebral arteries are patent and show good contrast enhancement. No significant stenosis or occlusion. There is no evidence of aneurysmal dilatation or vascular malformation. Prominent ventricular system and extra-axial CSF spaces suggestive of age-related involutional changes. Diffuse periventricular hypodensity in the bilateral small hypodense foci suggestive of microvascular ischemic changes. No midline shifts or deformity. No intracerebral or extra axial hematoma. Normal CT appearance of the posterior fossa structures namely the cerebellar hemispheres, brainstem and cerebellar peduncles. No definite calvarium fractures. Scanned paranasal sinuses are clear. IMPRESSION: 1. Normal CT angiography of the intracranial arteries with no significant stenosis or occlusion. 2. Appropriate age-related involutional changes and microvascular ischemic changes. Stable. [facility] ER was called at [phone] at 1:39 AM SPECIFICATION CONSULTANT, 12/19/2023 and negative results were verbally communicated to Underwriting Intern Shreya. Electronically Signed by: Raine Busch MD. (12/19/2023 02:52:26 EDT)
[2023-12-19] MEDS: TRANDATE 20 MG/4 ML SYRINGE IV ONE (02:57)
--- NOTE | 2023-12-19 03:16 | XRAY ---
CLINICAL HISTORY: dizzy,evaluate for posterior stroke COMPARISON: None. TECHNIQUE: Axial CT angiogram neck was performed after intravenous contrast administration. Reconstructed coronal and sagittal images were also acquired. One of these 3D techniques was utilized: Maximum Intensity Pixel (MIP), 3D Reconstructed Images, Volume Rendered Images, Surface Shaded Rendering. One of the following dose reduction techniques were utilized for this exam: Automated exposure control, adjustment of the mA and/or kV according to patient size, use of iterative reconstruction. FINDINGS: Atherosclerotic calcification of the aorta and both internal carotid arteries. Otherwise, normal course and caliber of the visualized extracranial portions of the internal carotid and vertebral arteries. Normal course and caliber of distal internal carotid arteries and their branches on both sides with no detectable occlusion or significant luminal stenosis. Normal CTA appearance of vertebro-basilar system with no significant stenosis or extrinsic compression noted. No detectable intracranial aneurysms or arteriovenous malformation. There is a hypodense lesion is seen inseparable from the left main pulmonary artery appears only in the first axial cut of the study series. IMPRESSION: 1. No hemodynamically significant stenosis, evidence of aneurysm, or vascular malformation. 2. Hypodense lesion inseparable from the left main pulmonary artery. Possibilities include pulmonary embolism versus hilar lymph node. Further evaluation by CT angiography of the chest is advised if clinically indicated. [facility] ER was called at [phone] at 2:10 AM SUPERVISOR [employer], 12/19/2023 and was informed regarding significant medical findings. Electronically Signed by: Raine Busch MD. (12/19/2023 03:12:02 EDT)
[2023-12-19 04:07] VITALS: BP 145/78; PULSE 90; RESP 16
[2023-12-19 23:47] VITALS: O2SAT 99
== END 2023-12-19 04:20 | disposition home or self-care (01) ==
LOC: ED 00:33
DX: E86.0 Dehydration (principal); N39.0 Urinary tract infection, site not specified; R42 Dizziness and giddiness; R51.9 Headache, unspecified; R11.2 Nausea with vomiting, unspecified; D72.829 Elevated white blood cell count, unspecified; E87.6 Hypokalemia; R74.01 Elevation of levels of liver transaminase levels; C34.90 Malignant neoplasm of unspecified part of unspecified bronchus or lung; D64.9 Anemia, unspecified; I10 Essential (primary) hypertension; Z96.649 Presence of unspecified artificial hip joint; E78.5 Hyperlipidemia, unspecified; E11.9 Type 2 diabetes mellitus without complications; Z79.84 Long term (current) use of oral hypoglycemic drugs; Z79.899 Other long term (current) drug therapy
CPT/HCPCS: 36000; 36415; 70496; 70498; 80053; 81001; 83605; 83690; 85025; 96360; 96365; 96374; 96375; 99284; J0696; J1100; A9270-GY